=== PATIENT | female | born 1965 | race Two or more races ===

== ENCOUNTER 2024-09-07 08:03 | Outpatient (AMB) | payer OTHER, SELFPAY ==
--- NOTE | 2024-09-07 08:08 | A.OFFPC_ITS ---
Vital Signs 09/07/24 08:09 Height 4 ft 10 in Weight 129 lb BMI 27.0 BP 130/66 Blood Pressure Location Lt brachial Position Sitting Pulse 82 Pulse Source Pulse Oximeter Pulse Oximetry (%) 99 Oxygen Delivery Method Room Air Intake Visit Reasons: New patient Ball Holder Required: Yes Ball Holder Language: Wolof Accompanied by: neighbor Allergies No Known Allergies Allergy (Verified 09/07/24 08:44) Medication List - Last Reconciled 09/07/24 by Chanda Pozo PA-C aspirin 81 mg PO DAILY atorvastatin 40 mg PO DAILY cilostazol 100 mg PO BID clopidogrel 150 mg PO DAILY gabapentin 600 mg PO DAILY insulin glargine 15 units subcut QPM insulin lispro 5 units subcut TID insulin NPH and regular human 100 unit/mL (70-30) (Humulin 70/30 U-100 Insulin) 0.1 units subcut DAILY isosorbide mononitrate ER 30 mg PO QAM levothyroxine 25 mcg PO DAILY losartan 25 mg PO DAILY metformin 850 mg PO DAILY metoprolol succinate ER 25 mg PO DAILY pantoprazole 40 mg PO DAILY Tobacco use date assessed: 09/07/24 Dental Screening Dental Screen Date: 09/07/24 Did you have a dental visit in the last 12 months?: No Did you have a dental problem in the last 6 months where you did not have access to dental care?: No HPI New patient HPI Details 59 year old female coming to the office for the first time. translator interpreter was used for the duration of this visit. Patient presents today with her neighbor. She was previously seen by PCP in [place]. She has been smoking cigarettes for over 40 years and has been smoking a pack per day for at least the last 10 years. She also mentions she has had a history of a heart attack and stroke in his unsure of the exact date but believes it to be in 2022. She has previously had a expediter clerk. She has been out of medications for about 4 months and has been taking valsartan and metformin from a neighbor. [facility] Surgical History (Updated 09/07/24 @ 08:52 by Chanda Pozo PA-C) History of cataract surgery Previous section Fractured coccyx Family History (Updated 09/07/24 @ 08:53 by Chanda Pozo PA-C) Father Lung cancer Maternal Grandmother Stomach cancer Paternal Grandmother Lung cancer Social History Housing: House Patient Tobacco Use Status: Current everyday Tobacco user Tobacco use type: Cigarette Cigarette Packs Per Day: 1 service: No Current occupational status: disabled Cognitive needs: No Hearing needs: No Vision needs: No Questionnaire PHQ-9 Over the last 2 weeks, how often have you been bothered by any of the following problems? 1. Little interest or pleasure in doing things: more than half the days 2. Feeling down, depressed, or hopeless: more than half the days 3. Trouble falling or staying asleep, or sleeping too much: nearly every day 4. Feeling tired or having little energy: nearly every day 5. Poor appetite or overeating: more than half the days 6. Feeling bad about yourself - or that you are a failure or have let yourself or your family down: nearly every day 7. Trouble concentrating on things, such as reading the newspaper or watching television: nearly every day 8. Moving or speaking so slowly that other people could have noticed. Or the opposite - being so fidgety or restless that you have been moving around a lot more than usual: nearly every day 9. Thoughts that you would be better off or of hurting yourself in some way: several days Total score: 22 Depression Screening Interpretation: Positive Depression Screening Done: Yes Source: Developed by Drs. Teo Fagan, Genesis Kinney, Mihir Taylor and colleagues, with an educational lisa from [employer] Thrive Questionnaire Date Thrive assessed: 08/31/24 I am a: Patient What is your living situation today?: I have a steady place to live Within the past 12 months, did the food you bought not last and you didn't have the money to get more?: Often true Within the past 12 months, did you worry whether your food would run out before you got money to buy more?: Often true Do you have trouble paying for medicines?: Yes Do you have trouble getting transportation to medical appointments?: Yes Do you have trouble paying your heating and electricity bill?: Yes Do you have trouble taking care of your child, family member or friend?: Yes Do you have trouble with day-to-day activities such as bathing, preparing meals, shopping, managing finances, etc.?: Yes Are you currently unemployed and looking for a job?: No Are you interested in more education?: I choose not to answer this question Please select the resources that you would like help with: Housing/Residential, Food, Paying for medicine, Transportation, Care for elder or disabled and Daily support Currently or been in a relationship where the following occur: No concerns reported THRIVE Score: 4 AUDIT C Alcohol Use Questionnaire (AUDIT-C) 1. How often do you have a drink containing alcohol?: Never 2. How many drinks containing alcohol do you have on a typical day when you are drinking?: 1 or 2 3. How often do you have six or more drinks on one occasion?: Never Total Score: 0 AVERY-7 AMB Questionnaire AVERY-7 Date AVERY - 7 assessed: 09/07/24 Feeling nervous, anxious, or on edge: 1 = Several days Not being able to stop or control worryin = Several days Worrying too much about different things: 1 = Several days Trouble relaxin = Several days Being so restless that it is hard to sit still: 1 = Several days Becoming easily annoyed or irritable: 0 = Not at all Feeling afraid as if something awful might happen: 0 = Not at all Total AVERY-7 score (0-4 normal; 5-9 mild; 10-14 moderate; 15-21 severe): 5 Source: Developed by Drs. Teo Fagan, Genesis Kinney, Mihir Taylor and colleagues, with an educational lisa from [employer] AVERY-7 Assessment Billing AVERY-7 Assessment Tool: AVERY-7 Assessment 17829 Review of Systems Const Denies body aches and Denies fever(s) Eyes Reports blurry vision ENT Reports no additional complaints Card Denies chest pain, Denies chest pain at rest, Denies chest pain with activity, Denies dyspnea and Denies dyspnea on exertion Resp Denies dyspnea and Denies dyspnea on exertion GI Denies abdominal pain, Reports dyspepsia, Denies nausea and Denies vomiting Reports no additional complaints Musc Reports no additional complaints Skin/Breast Reports system reviewed and no additional complaints, except as documented Neuro Reports no additional complaints Psych Reports no additional complaints Endo Reports no additional complaints Physical exam (Primary Care) Vital Signs: Last Vital Signs Pulse 82 09/07/24 08:09 BP 130/66 09/07/24 08:09 Pulse Ox 99 09/07/24 08:09 Oxygen Delivery Method Room Air 09/07/24 08:09 BMI result Body Mass Index 27.0 Tobacco/Smoking Status: Tobacco use Status Tobacco use date assessed 09/07/24 09/07/24 08:09 Patient Tobacco Use Status Current everyday Tobacco 09/07/24 08:27 Tobacco use type Cigarette 09/07/24 08:27 PHQ-9: PHQ-9 Score PHQ-9: Total score 22 09/07/24 09:01 Depression Screening Interpretation: Positive Thrive Assessment: Date of Thrive Assessment Date Thrive assessed 08/31/24 09/07/24 08:08 Currently or been in a relationship where the following occur: No concerns reported Const General: cooperative, healthy appearing, comfortable and no acute distress Orientation/consciousness: patient oriented x3 HENMT Head: Yes normocephalic Ears: hearing grossly normal bilaterally General nose exam: Normal external nose present Eyes General: appearance normal, both eyes and all related structures Conjunctivae: conjunctivae normal Neck Neck: Yes full ROM and Yes no lymphadenopathy Resp Effort & Inspection: normal respiratory effort Auscultation: clear to auscultation bilaterally, no crackles, no rales, no rhonchi and no wheezes Cardio Rate: regular rate Rhythm: regular rhythm Skin General skin exam: no rashes or lesions noted Neuro General: patient oriented x3 Gait exam (Neuro): Normal gait present Extrem General: Yes normal to inspection, Yes full ROM and No edema Psych Affect: normal affect Attitude: cooperative Insight: Good insight present (Psych) Judgement: Good judgement present (Psych) Results AMB Hemoglobin A1c AMB Hemoglobin A1c 10.2 % Last Edit by ANTHONY Martinez on 09/07/24 09:01 Results Reviewed Results Reviewed: Laboratory Last Values Hgb A1c (Clinic) 10.2 % (4.0-6.0) H 09/07/24 09:00 Coding Level of Care Code New Pt Level 4 (26880) Diagnoses Hypertension I10 Hypothyroid E03.9 Hypercholesterolemia E78.00 CVA (cerebral vascular accident) I63.9 Myocardial infarction I21.9 Diabetes mellitus E11.9 Tobacco abuse Z72.0 GERD (gastroesophageal reflux disease) K21.9 Anxiety F41.9 Depression F32.A Blurred vision H53.8 Additional Codes AVERY-7 Assessment Billing - AVERY-7 Assessment Tool: AVERY-7 Assessment 36138 ([id number]) Assessment & Plan Assessment & Plan (1) Hypertension: Code(s): I10 - Essential (primary) hypertension Category: Medical Plan: We will restart on metoprolol and losartan. Avoid salt intake and encourage healthy diet and regular exercise. Patient would benefit from hypertension education and referral was placed for community navigation. (2) Hypothyroid: Code(s): E03.9 - Hypothyroidism, unspecified Category: Medical Plan: Ordered for updated thyroid labs and refilled prescription for levothyroxine 25. (3) Hypercholesterolemia: Code(s): E78.00 - Pure hypercholesterolemia, unspecified Category: Medical Plan: Avoid foods that are high in cholesterol such as red meat, fried foods, eggs and baked goods. Triglyceride goal of less than 150 and LDL goal of less than 70. We will restart on atorvastatin 40 mg at ordered for updated blood work. (4) CVA (cerebral vascular accident): Comment: 2022 Code(s): I63.9 - Cerebral infarction, unspecified Category: Medical Plan: Patient has a history of a CVA unsure of location of the stroke in the exact date of the stroke. Advised he can control of blood pressure, cholesterol, blood sugars. We will request records from [place]. (5) Myocardial infarction: Comment: 2022 with coronary artery stenosis Code(s): I21.9 - Acute myocardial infarction, unspecified Category: Medical Plan: Patient has a history of myocardial infarction without stent placement but was told that she had severe stenosis of multiple vessels. We will request the notes from [place]. Continue with good control of blood pressure, cholesterol and blood sugar and referral was placed for Cardiology. (6) Diabetes mellitus: Code(s): E11.9 - Type 2 diabetes mellitus without complications Category: Medical Plan: Decrease the amount of carbohydrates such as pasta, bread, rice, and potatoes and limit the amount of sweets. Although fruits are generally healthy they should be eaten in moderation as they are still high in sugar. Hemoglobin A1c goal of less than 7%. Patient was on insulin glargine, insulin lispro and insulin NPH. Discussed that we will discontinue the insulin NPH at this time and continue with insulin glargine and lispro and prescription sent for continuous glucose monitor. Note was sent to [facility] for diabetes education. There is concern for this patient to have episodes of hypoglycemia and discussed the importance of starting with insulin slowly and monitoring blood sugars very closely. (7) Tobacco abuse: Code(s): Z72.0 - Tobacco use Category: Medical Plan: Smoking cigarettes and the use of tobacco can be harmful. We discussed the impo rtance of stopping and options to aid in smoking cessation. Prescription sent for nicotine replacement therapy with Nicorette gum and referral placed for lung cancer screening program. (8) GERD (gastroesophageal reflux disease): Code(s): K21.9 - Gastro-esophageal reflux disease without esophagitis Category: Medical Plan: Avoid trigger foods such as citrus, tomato products, soda, caffeine, spicy foods and other foods that may be irritating to your stomach. Avoid laying flat 3-4 hours after eating and elevate the head of the bed 30 degrees to prevent acid from moving into the esophagus. Continue on pantoprazole (9) Anxiety: Code(s): F41.9 - Anxiety disorder, unspecified Category: Medical Plan: Referral was placed for counseling. (10) Depression: Code(s): F32.A - Depression, unspecified Category: Medical Plan: Referral was placed for counseling (11) Blurred vision: Code(s): H53.8 - Other visual disturbances Category: Medical Plan: Patient complaining of blurred vision that impairs her ability to drive. Referral was placed for optometry. Plan Discussed with patient and her neighbor that these medication should not be started all at 1 time and there should be a day or 2 in between restarting these medications to monitor for side effects. Also discussed the importance of monitoring the blood sugars while at home especially while on insulin and prescription was sent for continuous glucose monitor. Referral was placed to [facility] to educate patient on how to use glucose monitor and for other management of diabetes. This note was constructed using voice recognition software. While every effort has been made to ensure accuracy and log stacker operator, still areas may have been included sometimes these areas may affect the content or meeting of the given symptoms. Total time spent caring for the patient today was forty-five minutes. This includes time spent before the visit reviewing the chart, time spent during the visit, and time spent after the visit and documentation. Orders: Orders AMB Hemoglobin A1c Today E11.9 - Type 2 diabetes mellitus without complications Comprehensive Met. Panel Today Z00.00 - Encounter for general adult medical examination without abnormal findings TSH reflex Free T4 Today Z00.00 - Encounter for general adult medical examination without abnormal findings Microalbumin, Random (w Creat) Today E11.9 - Type 2 diabetes mellitus without complications Free T4 (Free Thyroxine) Today Z00.00 - Encounter for general adult medical examination without abnormal findings MM tomosynthesis screening BI Today Z12.31 - Encounter for screening mammogram for malignant neoplasm of breast Complete Blood Count Auto Diff Today Z00.00 - Encounter for general adult medical examination without abnormal findings Lipid Panel Today Z00.00 - Encounter for general adult medical examination w ithout abnormal findings Vitamin B12 and Folate Today Z00.00 - Encounter for general adult medical examination without abnormal findings Vitamin D 25-OH (D2 and D3) Today Z00.00 - Encounter for general adult medical examination without abnormal findings UA CC w/rflx Micro + Cult Today R35.89 - Other polyuria Referrals Lung Cancer Screening Referral Z72.0 - Tobacco use Gastroenterology Referral Z12.11 - Encounter for screening for malignant neoplasm of colon Optometry Referral E11.9 - Type 2 diabetes mellitus without complications, H53.8 - Other visual disturbances Podiatry Referral E11.9 - Type 2 diabetes mellitus without complications Cardiology Referral I21.9 - Acute myocardial infarction, unspecified, I63.9 - Cerebral infarction, unspecified Counseling Referral F32.A - Depression, unspecified, F41.9 - Anxiety disorder, unspecified Medications: New nicotine (polacrilex) 4 mg buccal Q2H 40 ea 0RF aspirin 81 mg PO DAILY 90 tabs 2RF pantoprazole 40 mg PO DAILY 90 tabs 3RF metoprolol succinate ER 25 mg PO DAILY 90 tabs 2RF losartan 25 mg PO DAILY 90 tabs 2RF levothyroxine 25 mcg PO DAILY 90 caps 2RF clopidogrel 150 mg (2 x 75 mg) PO DAILY 60 tabs 2RF insulin glargine 15 units (0.15 mL) subcut QPM 15 mL 0RF acetaminophen (Tylenol Extra Strength) 500 mg PO Q6H PRN 30 tabs 0RF fever blood-glucose sensor (FreeStyle Javi 3 Sensor device) As directed 1 ea 0RF E11.9 - Type 2 diabetes mellitus without complications clopidogrel 75 mg PO DAILY 90 tabs 2RF atorvastatin 40 mg PO DAILY 90 tabs 1RF metformin 850 mg PO DAILY 90 tabs 2RF
[2024-09-07 08:09] VITALS: BP 130/66; PULSE 82; O2SAT 99; BMI 27.0
== END 2024-09-07 09:17 | disposition home or self-care (01) ==
LOC: HO.HMCH 08:04
DX: I10 Essential (primary) hypertension (principal); I63.9 Cerebral infarction, unspecified; I21.9 Acute myocardial infarction, unspecified; E11.9 Type 2 diabetes mellitus without complications; E03.9 Hypothyroidism, unspecified; E78.00 Pure hypercholesterolemia, unspecified; Z72.0 Tobacco use; K21.9 Gastro-esophageal reflux disease without esophagitis; F41.9 Anxiety disorder, unspecified; F32.A Depression, unspecified; H53.8 Other visual disturbances

== ENCOUNTER → 2024-09-07 08:03 | Outpatient (BNVA) | payer OTHER, SELFPAY | DX: I10 Essential (primary) hypertension (principal); E03.9 Hypothyroidism, unspecified; E78.00 Pure hypercholesterolemia, unspecified; I63.9 Cerebral infarction, unspecified; I21.9 Acute myocardial infarction, unspecified; E11.9 Type 2 diabetes mellitus without complications; K21.9 Gastro-esophageal reflux disease without esophagitis; F41.9 Anxiety disorder, unspecified; F32.A Depression, unspecified; H53.8 Other visual disturbances; Z72.0 Tobacco use | CPT/HCPCS: 83036; 96127; 99202 ==

== ENCOUNTER 2024-11-19 10:32 | Outpatient (AMB) | payer OTHER, SELFPAY ==
--- NOTE | 2024-11-19 08:03 | MHC.OFFVIS ---
Intake Visit Reasons: LDCT Allergies No Known Allergies Allergy (Verified 09/07/24 08:44) HPI HPI LDCT: Details: Initial visit for this 59yo smoker with a 25PYH. Patient started smoking at age 18 for 41 years at 1/2-3/4ppd. . Denies marijuana use. Denies second hand smoke exposure. Denies exposure to chemicals or substances like asbestos. . Reports family history of lung cancer - paternal grandmother. Denies personal history of cancers. Denies chest CT in last year. . Denies recent travel outside the [place]. Denies recent respiratory illness or recent hospitalization for respiratory issues. Reports history testing positive for COVID. Admits receiving COVID Vaccine. . History of CVA and CT in 2022. Denies fever, chills, new/worsening cough, hemoptysis, hoarseness or dysphagia. Denies significant chest pain, significant dyspnea or unintentional weight loss. Patient Lung Cancer Screening Questionnaire reviewed with patient by provider. . Shared Decision Making Completed. Patient meets criteria. Discussed in detail with patient, the risk vs benefit of LDCT screening. Patient consents to proceed with scan. Discussed smoking cessation. [facility] Medical History (Updated 11/19/24 @ 10:48 by Henna Lugo PA-C) History of CVA (cerebrovascular accident) (~2022) History of myocardial infarction (~2022) Hypertension Hypercholesterolemia Diabetes mellitus Hypothyroid GERD (gastroesophageal reflux disease) Nicotine dependence, cigarettes, uncomplicated Surgical History (Updated 10/11/24 @ 15:19 by Henna Lugo PA-C) S/P insertion of iliac artery stent History of orthopedic surgery History of cataract surgery History of Family History (Updated 09/07/24 @ 08:53 by Chanda Pozo PA-C) Father No problems noted. Maternal Grandmother Stomach cancer Paternal Grandmother Lung cancer Social History (Updated 11/19/24 @ 10:49 by Henna Lugo PA-C) Housing: House Patient Tobacco Use Status: Current everyday Tobacco user Tobacco use type: Cigarette Cigarette Packs Per Day: 1 Years Smoked: (onset 18yo, 1/2-3/4ppd x 41yrs, 25PYH) service: No Current occupational status: disabled Cognitive needs: No Hearing needs: No Vision needs: No Assessment & Plan Assessment & Plan (1) Nicotine dependence, cigarettes, uncomplicated: Comment: (current smoker - onset 18yo, 1/2-3/4ppd x 41yrs, 25PYH) Code(s): F17.210 - Nicotine dependence, cigarettes, uncomplicated Category: Medical Plan: - SDM visit completed today in office. - Patient meets criteria for LDCT for lung cancer screening purposes and is asymptomatic. - Smoking cessation counseling offered. Patients can always call [phone]. - Will arrange for a LDCT scan of the chest for screening purposes at [facility]. - Risks, benefits, and alternatives were discussed in detail and the patient agrees to proceed. - Risks discussed include but are not limited to: radiation exposure, anxiety during testing and while awaiting results, false negatives, false positives and possibility of additional intervention such as further imaging or surgical procedures for benign disease. - Benefits are obviously detection of lung cancer at an early stage which can lead to improved outcomes. - Discussed the importance of screening program compliance with adherence to yearly LDCT scan as scheduled - or sooner interval scans for personalized screening regimen. - Discussed follow up plan. Our office will send a letter discussing results and if needed set up phone call and office visit based on CT findings. - Patient educated on results categorization and the management decisions for suspicious findings potentially found on the screening LDCT scan. Any patient with a Lung RADS score of 3 or 4 will be reviewed by a multidisciplinary team at [facility] to form a plan of action in regards to scan findings. - If further work up is warranted for a suspicious lung finding this will be followed by the Lung Cancer Screening program in conjunction with the Thoracic Surgery Department at [facility]. - A copy of the office note and LDCT will be sent to the patient's PCP - as well as documentation on any associated further plans of care. - Incidental findings on LDCT are the PCP's responsibility. These findings are indicated with an S finding on the LDCT Assessment. A note discussing the findings will be sent to the PCP who is then responsible for further management. - All questions answered.? Coding Level of Care Code Lung Cancer Screening [id number] Diagnoses Nicotine dependence, cigarettes, uncomplicated F17.210
== END 2024-11-19 11:07 | disposition home or self-care (01) ==
PROVIDERS: Visit Provider Physician Assistant Medical
DX: F17.210 Nicotine dependence, cigarettes, uncomplicated (principal)
CPT/HCPCS: G0296

== ENCOUNTER 2024-11-19 10:58 | Outpatient (REF) | payer OTHER, SELFPAY ==
--- NOTE | ~2024-11-19 | CT_ITS ---
CLINICAL HISTORY: F17.210 - Nicotine dependence, cigarettes, uncomplicated CT lung cancer screening (LDCT) Comparison: None Technique: Axial CT images of the chest using low-dose technique. Referring provider counseled the patient on shared decision-making for LDCT screening. Additional counseling was provided on smoking cessation. Effective radiation dose total: DLP 30.6 mGycm, CTDIvol 1.1 mGy. Findings: 11 mm subpleural nodule in the apical segment of the left upper lobe either continuous with or in the vicinity of a peripheral pulmonary vessel branch. Additional small (up to 3 mm) predominantly right upper lung nodules and a calcified left upper lobe granuloma. Coronary artery calcifications: [id number] Cholecystectomy. Rectangular density in the subcutaneous fat of the left ventral chest likely due to a cardiac loop recorder. Correlate clinically. Small sclerotic focus in the left proximal humerus may be due to a bone island. Impression: LungRADS 4A - Suspicious: Follow-up low dose Chest CT recommended in 3 months or consider PET/CT. ##L4A# Of note, since the 11 mm left upper lobe nodule may be due to a true nodule versus an aneurysm, a chest CTA (pulmonary artery phase) is recommended for further evaluation before the recommended low-dose chest CT follow-up in 3 months or PET-CT Category 1: Normal; continue annual screening Category 2: Benign appearance or behavior, continue annual screening Category 3: Probably benign, [address] recommended Category 4A: Suspicious, [address] recommended; may consider PET/CT Category 4B: Suspicious, Additional diagnostics and/or tissue sampling recommended Category 4X: Suspicious, Additional diagnostics and/or tissue sampling recommended Category 0: Recalls (incomplete screen due to Incomplete coverage, Noise, Respiratory motion, Expiration, Obscured by acute abnormality) IMPRESSION: 11 mm subpleural nodule in the apical segment of the left upper lobe either continuous with or in the vicinity of a peripheral pulmonary vessel branch. Additional small (up to 3 mm) right upper lung nodules and a calcified left upper lobe granuloma. This document has been electronically signed by: Donna Alfonso MD on 11/23/2024 09:33:55
== END 2024-11-19 10:59 | disposition home or self-care (01) ==
LOC: HO.CT 10:58
PROVIDERS: Visit Provider Physician Assistant Medical
DX: Z12.2 Encounter for screening for malignant neoplasm of respiratory organs (principal); F17.210 Nicotine dependence, cigarettes, uncomplicated
CPT/HCPCS: 71271; G0296

== ENCOUNTER → 2024-11-19 11:00 | Outpatient (BNV) | payer OTHER, SELFPAY | PROVIDERS: Visit Provider Radiology Diagnostic Radiology | DX: F17.210 Nicotine dependence, cigarettes, uncomplicated (principal) | CPT/HCPCS: 71271 ==

== ENCOUNTER → 2024-12-08 13:01 | Outpatient (BNVA) | payer OTHER, SELFPAY | PROVIDERS: Visit Provider Internal Medicine | DX: I25.10 Atherosclerotic heart disease of native coronary artery without angina pectoris (principal); I10 Essential (primary) hypertension; E11.9 Type 2 diabetes mellitus without complications; E78.00 Pure hypercholesterolemia, unspecified; Z95.818 Presence of other cardiac implants and grafts | CPT/HCPCS: 93005; 99202 ==

== ENCOUNTER 2024-12-14 14:17 | Outpatient (AMB) | payer OTHER, SELFPAY ==
--- NOTE | 2024-12-14 14:32 | MHC.PC.OV ---
Vital Signs 12/14/24 14:40 Height 4 ft 10 in Weight 128 lb 6 oz BMI 26.8 BP 120/70 Blood Pressure Location Lt brachial Position Sitting Pulse 74 Pulse Source Pulse Oximeter Temp 97.1 F Temp Source Skin Pulse Oximetry (%) 97 Oxygen Delivery Method Room Air Intake Visit Reasons: f/d DM Intake Note: Patient is here to follow up on DM. Vocational Counselor Required: Yes Vocational Counselor Language: Chief Librarian Extension Department Name: Bell ([id number]) Information Interpreted: non-clinical & clinical Hosting Engineer: Present Accompanied by: Daughter Allergies fruit Allergy (Severe, Uncoded 12/14/24 14:40) itchy throat Medication List - Last Reconciled 12/14/24 by Chanda Pozo PA-C acetaminophen (Tylenol Extra Strength) 500 mg PO Q6H PRN aspirin 81 mg PO DAILY atorvastatin 40 mg PO DAILY clopidogrel 75 mg PO DAILY gabapentin 600 mg PO DAILY insulin glargine 15 units (0.15 mL) subcut QPM levothyroxine (Tirosint) 25 mcg PO DAILY losartan 25 mg PO DAILY metformin 850 mg PO DAILY metoprolol succinate ER 25 mg PO DAILY pantoprazole 40 mg PO DAILY [Pen needles 5mm As directed] [Wheelchair As directed] Tobacco use date assessed: 12/14/24 Dental Screening Dental Screen Date: 12/14/24 Did you have a dental visit in the last 12 months?: No Did you have a dental problem in the last 6 months where you did not have access to dental care?: No Was dental information given to patient?: No HPI f/d DM HPI Details 59-year-old female with past medical history tobacco abuse, anxiety, depression, GERD, hypothyroid, diabetes mellitus, hypertension, hypercholesterolemia, CVA and NV last seen 09/2024 coming in for follow up.? In review of the notes, patient had lung cancer screening done 11/19/2024 which revealed lung nodules recommended follow up with pulmonology. Patient saw Cardiology 12/08/2024 continue on dual antiplatelet medications advised good control of cholesterol and diabetes, ordered for cardiac echo and follow up in 2-3 months. Bell ([id number]) vp customer development was used for the duration of this visit. Presenting with her daughter and with foot pain and evaluation of diabetes management. She reports focal foot pain, primarily in her big toe, characterized by an aching quality that peaks in the morning and resolves with walking. Previous management of diabetic neuropathy included gabapentin, which the patient has not taken for the past week. Current diabetes regimen includes insulin and metformin, with recent improvement in glycemic control as noted by an HbA1c reduction from 10.2 to 8.4. She does not however monitor her blood sugars at home. Cardiovascular risk management is ongoing, with an upcoming echocardiogram scheduled as part of her cardiovascular assessment. [facility] Medical History History of CVA (cerebrovascular accident) (~2022) History of myocardial infarction (~2022) Hypertension Hypercholesterolemia Diabetes mellitus Hypothyroid GERD (gastroesophageal reflux disease) Nicotine dependence, cigarettes, uncomplicated Surgical History S/P insertion of iliac artery stent History of orthopedic surgery History of cataract surgery History of Family History Father No problems noted. Maternal Grandmother Stomach cancer Paternal Grandmother Lung cancer Social History (Updated 12/14/24 @ 14:53 by Kim Keller [facility]) Housing: House Alcohol intake: never Patient Tobacco Use Status: Current everyday Tobacco user Tobacco use type: Cigarette Cigarette Packs Per Day: 0.5 Cigarettes Per Day: 4 Years Smoked: (onset 18yo, 1/2-3/4ppd x 41yrs, 25PYH) e-Cigarette/Vaping Use: Never Used Second Hand Smoke Exposure: Yes service: No Current occupational status: disabled Cognitive needs: No Hearing needs: No Vision needs: No Questionnaire PHQ-9 Over the last 2 weeks, how often have you been bothered by any of the following problems? 1. Little interest or pleasure in doing things: not at all 2. Feeling down, depressed, or hopeless: not at all 3. Trouble falling or staying asleep, or sleeping too much: not at all 4. Feeling tired or having little energy: not at all 5. Poor appetite or overeating: not at all 6. Feeling bad about yourself - or that you are a failure or have let yourself or your family down: not at all 7. Trouble concentrating on things, such as reading the newspaper or watching television: not at all 8. Moving or speaking so slowly that other people could have noticed. Or the opposite - being so fidgety or restless that you have been moving around a lot more than usual: not at all 9. Thoughts that you would be better off or of hurting yourself in some way: not at all Total score: 0 Depression Screening Interpretation: Negative Depression Screening Done: Yes Source: Developed by Drs. Teo Fagan, Mihir Peck and colleagues, with an educational lisa from [employer]. Thrive Questionnaire Date Thrive assessed: 12/14/24 AUDIT C Alcohol Use Questionnaire (AUDIT-C) 1. How often do you have a drink containing alcohol?: Never Total Score: 0 AVERY-7 AMB Questionnaire AVERY-7 Date AVERY - 7 assessed: 12/14/24 Feeling nervous, anxious, or on edge: 3 = Nearly every day Not being able to stop or control worryin = More than half the days Worrying too much about different things: 2 = More than half the days Trouble relaxin = Not at all Being so restless that it is hard to sit still: 2 = More than half the days Becoming easily annoyed or irritable: 1 = Several days Feeling afraid as if something awful might happen: 2 = More than half the days Total AVERY-7 score (0-4 normal; 5-9 mild; 10-14 moderate; 15-21 severe): 12 Source: Developed by Drs. Teo Fagan, Mihir Peck and colleagues, with an educational lisa from [employer]. Review of Systems Const Denies body aches, Denies chills, Denies fever(s), Denies headache(s) and Denies poor appetite Eyes Reports no additional complaints ENT Denies dysphagia, Denies dizziness, Denies headache(s) and Denies odynophagia Card Denies chest pain, Denies syncope, Denies edema, Denies irregular heart rhythm, Denies lightheadedness and Denies dyspnea Resp Denies cough and Denies dyspnea GI Denies abdominal pain, Denies constipation, Denies dysphagia, Denies diarrhea, Denies nausea, Denies odynophagia and Denies vomiting Reports no additional complaints Musc Reports no additional complaints and Denies abnormal gait Skin/Breast Reports system reviewed and no additional complaints, except as documented Neuro Denies abnormal gait, Denies dizziness, Denies syncope and Denies headache(s) Psych Reports no additional complaints Physical exam (Primary Care) Vital Signs: Last Vital Signs Temp 97.1 F 12/14/24 14:40 Pulse 74 12/14/24 14:40 BP 120/70 12/14/24 14:40 Pulse Ox 97 12/14/24 14:40 Oxygen Delivery Method Room Air 12/14/24 14:40 BMI result Body Mass Index 26.8 Tobacco/Smoking Status: Tobacco use Status Tobacco use date assessed 12/14/24 12/14/24 15:00 Patient Tobacco Use Status Current everyday Tobacco 12/14/24 14:53 Tobacco use type Cigarette 12/14/24 14:53 e-Cigarette/Vaping Use Never Used 12/14/24 15:00 Are you ready to quit: No Tobacco cessation counseling provided: Yes Items discussed: Nicotine replacement Relapse Prevention: weight gain after smoking is common and discussed dietary, exercise and/or lifestyle changes CPT code: Less than 3 minutes PHQ-9: PHQ-9 Score PHQ-9: Total score 0 12/14/24 15:40 Depression Screening Interpretation: Negative Thrive Assessment: Date of Thrive Assessment Date Thrive assessed 12/14/24 12/14/24 14:35 Const General: cooperative, healthy appearing, comfortable and no acute distress Orientation/consciousness: patient oriented x3 HENMT Head: Yes normocephalic Ears: hearing grossly normal bilaterally General nose exam: Normal external nose present Eyes General: appearance normal, both eyes and all related structures Conjunctivae: conjunctivae normal Neck Neck: Yes full ROM and Yes no lymphadenopathy Resp Effort & Inspection: normal respiratory effort Auscultation: clear to auscultation bilaterally, no crackles, no rales, no rhonchi and no wheezes Cardio Rate: regular rate Rhythm: regular rhythm Skin General skin exam: no rashes or lesions noted Neuro General: patient oriented x3 Gait exam (Neuro): Normal gait present Extrem Other: Bilateral feet examined tenderness to palpation over plantar aspect of bilateral feet. Good sensation and pulses in bilateral lower extremities. She does have 1 area of cracked skin on the base of the right heel without any areas of open skin. No ulcers noted General: Yes normal to inspection, Yes full ROM and No edema Psych Affect: normal affect Attitude: cooperative Insight: Good insight present (Psych) Judgement: Good judgement present (Psych) Results AMB Hemoglobin A1c AMB Hemoglobin A1c 8.4 % Last Edit by ANTHONY Rivas on 12/14/24 15:03 Results Reviewed Results Reviewed: Laboratory Last Values Hgb A1c (Clinic) 8.4 % (4.0-6.0) H 12/14/24 14:32 Coding Level of Care Code Est Pt Level 4 (68096) Diagnoses Coronary artery disease I25.10 Left upper lobe pulmonary nodule R91.1 History of CVA (cerebrovascular accident) Z86.73 History of myocardial infarction I25.2 Hypertension I10 Hypercholesterolemia E78.00 Diabetes mellitus E11.9 GERD (gastroesophageal reflux disease) K21.9 Nicotine dependence, cigarettes, uncomplicated F17.210 Foot pain M79.673 Assessment & Plan Assessment & Plan (1) Coronary artery disease: Code(s): I25.10 - Atherosclerotic heart disease of agdaagux coronary artery without angina pectoris Category: Medical Plan: Recently seen by Cardiology ordered for echocardiogram. Advised good control of blood pressure, cholesterol and diabetes mellitus. (2) Left upper lobe pulmonary nodule: Comment: 11 mm subpleural nodule in [facility] on 11/2024 LDCT - referral to Pulmonology for further care. Code(s): R91.1 - Solitary pulmonary nodule Category: Medical Plan: Recently completed lung cancer screening program which revealed a 11 mm subpleural nodule in the left upper lobe. Referral was placed to pulmonology and patient has a appointment in the coming months (3) History of CVA (cerebrovascular accident): Onset Date: ~2022 Code(s): Z86.73 - Personal history of transient ischemic attack (TIA), and cerebral infarction without residual deficits Category: Medical Plan: Patient has a history of CVA making her LDL goal less than 70. Advised good control of blood pressure, cholesterol and diabetes. Currently on dual antiplatelet therapy with clopidogrel and aspirin (4) History of myocardial infarction: Onset Date: ~2022 Comment: (NV in 2022 with coronary artery stenosis - no stents per patient) Code(s): I25.2 - Old myocardial infarction Category: Medical Plan: Recently seen by cardiology advised to undergo echocardiogram for further evaluation. Unclear if stents were placed still awaiting on clarification. (5) Hypertension: Code(s): I10 - Essential (primary) hypertension Category: Medical Plan: Continue on current blood pressure medication. Avoid salt intake and encourage healthy diet and regular exercise. (6) Hypercholesterolemia: Code(s): E78.00 - Pure hypercholesterolemia, unspecified Category: Medical Plan: Avoid foods that are high in cholesterol such as red meat, fried foods, eggs and baked goods. Triglyceride goal of less than 150 and LDL goal of less than 70. Continue on atorvastatin 40. Reminded patient about blood work (7) Diabetes mellitus: Comment: (IDDM2) Code(s): E11.9 - Type 2 diabetes mellitus without complications Category: Medical Plan: Decrease the amount of carbohydrates such as pasta, bread, rice, and potatoes and limit the amount of sweets. Although fruits are generally healthy they should be eaten in moderation as they are still high in sugar. Hemoglobin A1c goal of less than 7%. A1c in the clinic today 8.4 which is improved from 10.2%. Advised patient to monitor blood sugars at home as she is on insulin and blood sugar should be monitored at least twice daily by ideally 3 times per day. Plan to add Jardiance to medication regimen at this time and continue on metformin 850 and insulin 15 units nightly. Follow up again in 3 months (8) GERD (gastroesophageal reflux disease): Code(s): K21.9 - Gastro-esophageal reflux disease without esophagitis Category: Medical Plan: Avoid trigger foods such as citrus, tomato products, soda, caffeine, spicy foods and other foods that may be irritating to your stomach. Avoid laying flat 3-4 hours after eating and elevate the head of the bed 30 degrees to prevent acid from moving into the esophagus. Continue on pantoprazole 40 (9) Nicotine dependence, cigarettes, uncomplicated: Comment: (current smoker - onset 18yo, 1/2-3/4ppd x 41yrs, 25PYH) Code(s): F17.210 - Nicotine dependence, cigarettes, uncomplicated Category: Medical Plan: Smoking cigarettes and the use of tobacco can be harmful. We discussed the importance of stopping and options to aid in smoking cessation. Annual lung cancer screening program completed (10) Foot pain: Code(s): M79.673 - Pain in unspecified foot Category: Medical Plan: Patient complaining of bilateral foot pain that is worse in the morning and improves with walking. Tenderness to palpation on exam of bilateral plantar surfaces. She does have a skin crack on the base of her right heel without any areas of open skin. No areas of ulceration on bilateral feet including between the toes. Advised patient to keep feet well hydrated with Aquaphor or Vaseline. Patient has been without gabapentin which is likely the reason for her bilateral foot pain. Refilled gabapentin prescription at this time and recommending following up with Podiatry. Plan I discussed with the patient the current management of her diabetic neuropathy, emphasizing the importance of restarting gabapentin to alleviate her foot pain. We reviewed the necessity of maintaining well-hydrated skin on her feet to prevent ulceration. The addition of Jardiance was proposed to aid in further glycemic control, and I ensured the patient understood the potential side effects, such as urinary tract infections. The importance of her upcoming echocardiogram as part of cardiovascular health monitoring was highlighted, as was the need for regular blood glucose monitoring. I instructed her on dietary adjustments aimed at reducing sugar intake. We have planned to follow up in three months to reassess her HbA1c and overall diabetes and foot health management. Patient was informed and verbally consented to the use of an ambient scribe for clinic note documentation during this visit. This note was constructed using voice recognition software. While every effort has been made to ensure accuracy and office machine punch operator, still areas may have been included sometimes these areas may affect the content or meeting of the given symptoms. Total time spent caring for the patient today was thirty minutes. This includes time spent before the visit reviewing the chart, time spent during the visit, and time spent after the visit and documentation. Orders: Orders AMB Hemoglobin A1c Today E11.9 - Type 2 diabetes mellitus without complications Medications: New blood sugar diagnostic (FreeStyle Lite Strips) As directed; TID 50 ea 2RF empagliflozin (Jardiance) 10 mg PO DAILY 90 tabs 1RF gabapentin 600 mg PO DAILY 30 tabs 0RF blood-glucose meter (FreeStyle Lite Meter kit) As directed 1 ea 0RF lancets (FreeStyle Lancets) As directed; TID 100 ea 0RF Refilled insulin glargine 15 units (0.15 mL) subcut QPM 15 mL 0RF
[2024-12-14 14:40] VITALS: BP 120/70; PULSE 74; TEMP 36.2; O2SAT 97; BMI 26.8
--- OUTSIDE RECORDS SUMMARY | 2024-12-14 15:14 | XMS_ITS | Clinical Summary ---
Author Organization 175 [facility] Address [address] [place] [address] Phone Care Team Providers Care High Reach Operator Name Role Phone Physician, Pcp Unknown Primary Care Provider Trish vailable Social History Tobacco Use Types Packs/Day Years Used Date Smoking Tobacco: Never Assessed Comments Unknown Sex and Gender Information Value Date Recorded Sex Assigned at Not on file Legal Sex Female 10:10 AM EST Gender Identity Not on file Sexual Orientation Not on file Plan of Treatment Upcoming Encounters Date Type Department Care Team ([facility] st Contact Info) Description 12/21/2024 9:45 AM EST Office Visit Orthopedic Surgery - [place] [id number] [phone] Gregg Malone, DPM [address] [id number] Health Maintenance Due Date Last Done Comments Breast Cancer Screening 1965 DTaP,Tdap,and Td Vaccines (1 - Tdap) 1983 Cervical Cancer Screening: P ap Smear 1985 Zoster Vaccines (1 of 2) 2014 COVID-19 Vaccine ( - 2023-2 5 season) 2024 Influenza Vaccine (#1) 2024 Colorectal Cancer Screening: Colonoscopy 09/10/2024 Depression Screening 09/10/2024 HIV Screening 09/10/2024 Hepatitis C Screening 09/10/2024 Social Influencers of Health Screening 09/10/2024 RSV Immunization Patients 60 + Years Old (1 - 1-dose 75+ series) 2039 HIB Vaccines Aged Out No longer eligi ble based on patient's age to complete this topic HPV Vaccines Aged Out No longer eligi ble based on patient's age to complete this topic Hepatitis A Vaccines Aged Out No long er eligible based on patient's age to complete this topic Hepatitis B Vaccines Aged Out No long er eligible based on patient's age to complete this topic IPV Vaccines Aged Out No longer eligi ble based on patient's age to complete this topic MMR Vaccines Aged Out No longer eligi ble based on patient's age to complete this topic Meningococcal ACWY Vaccine Aged Out N o longer eligible based on patient's age to complete this topic Pneumococcal Vaccine: Pediat rics (0 to 5 Years) and At-Risk Patients (6 to 64 Years) Aged Out No longer eligible b ased on patient's age to complete this topic RSV Immunization Patients Un kobe 20 months Aged Out No longer eligible b ased on patient's age to complete this topic Varicella Vaccines Aged Out No longer eligible based on patient's age to complete this topic Insurance PLAN Care Teams High Reach Operator Relationship Specialty Start Date End Date Physician, Pcp Unknown PCP - General 12/08/24
== END 2024-12-14 15:29 | disposition home or self-care (01) ==
DX: E11.9 Type 2 diabetes mellitus without complications (principal); I25.10 Atherosclerotic heart disease of native coronary artery without angina pectoris; R91.1 Solitary pulmonary nodule; Z86.73 Personal history of transient ischemic attack (TIA), and cerebral infarction without residual deficits; I25.2 Old myocardial infarction; I10 Essential (primary) hypertension; E78.00 Pure hypercholesterolemia, unspecified; K21.9 Gastro-esophageal reflux disease without esophagitis; F17.210 Nicotine dependence, cigarettes, uncomplicated; M79.671 Pain in right foot; M79.672 Pain in left foot

== ENCOUNTER → 2024-12-14 14:17 | Outpatient (BNVA) | payer OTHER, SELFPAY | DX: I25.10 Atherosclerotic heart disease of native coronary artery without angina pectoris (principal); R91.1 Solitary pulmonary nodule; I25.2 Old myocardial infarction; I10 Essential (primary) hypertension; E78.00 Pure hypercholesterolemia, unspecified; E11.9 Type 2 diabetes mellitus without complications; K21.9 Gastro-esophageal reflux disease without esophagitis; F17.210 Nicotine dependence, cigarettes, uncomplicated; Z71.6 Tobacco abuse counseling; Z86.73 Personal history of transient ischemic attack (TIA), and cerebral infarction without residual deficits | CPT/HCPCS: 83036; 99212 ==

== ENCOUNTER 2024-12-17 | Outpatient (REF) | payer OTHER, SELFPAY | END 2024-12-17 00:01 | disposition home or self-care (01) | LOC: CF | PROVIDERS: Visit Provider Internal Medicine Pulmonary Disease | DX: R91.1 Solitary pulmonary nodule (principal); J43.9 Emphysema, unspecified | CPT/HCPCS: 99202 ==

== ENCOUNTER 2024-12-17 15:35 | Outpatient (AMB) | payer OTHER, SELFPAY ==
[2024-12-17 15:38] VITALS: BP 108/58; PULSE 78; O2SAT 99; BMI 27.6
--- NOTE | 2024-12-17 15:38 | A.OFFVIS_ITS ---
Vital Signs 12/17/24 15:38 Height 4 ft 10 in Weight 132 lb BMI 27.6 BP 108/58 L Blood Pressure Location Lt brachial Position Sitting Pulse 78 Pulse Source Doppler Pulse Oximetry (%) 99 Oxygen Delivery Method Room Air Intake Visit Reasons: solitary pulmonary nodule Dry Cell And Battery Assembler Required: Yes Dry Cell And Battery Assembler Name: Caro Pena C.L.M Allergies fruit Allergy (Severe, Uncoded 12/14/24 14:40) itchy throat HPI HPI solitary pulmonary nodule: Details: 59-year-old lady, active 30+ pack-year smoker referred from lung cancer screening program for new finding of 11 mm left upper lobe nodule. Patient does have multiple grandparents with history of lung cancer. She denies any significant dyspnea on exertion. She is currently not using inhaled bronchodilator therapy. [facility] Medical History History of CVA (cerebrovascular accident) (~2022) History of myocardial infarction (~2022) Hypertension Hypercholesterolemia Diabetes mellitus Hypothyroid GERD (gastroesophageal reflux disease) Nicotine dependence, cigarettes, uncomplicated Surgical History S/P insertion of iliac artery stent History of orthopedic surgery History of cataract surgery History of Family History Father No problems noted. Maternal Grandmother Stomach cancer Paternal Grandmother Lung cancer Social History (Updated 12/14/24 @ 14:53 by Kim Keller Luis Angel) Housing: House Alcohol intake: never Patient Tobacco Use Status: Current everyday Tobacco user Tobacco use type: Cigarette Cigarette Packs Per Day: 0.5 Cigarettes Per Day: 4 Years Smoked: (onset 18yo, 1/2-3/4ppd x 41yrs, 25PYH) e-Cigarette/Vaping Use: Never Used Second Hand Smoke Exposure: Yes service: No Current occupational status: disabled Cognitive needs: No Hearing needs: No Vision needs: No Review of Systems Const Denies daytime sleepiness, Denies excessive sweating, Denies fatigue, Denies fever(s), Denies lethargy, Denies malaise, Denies night sweats, Denies snoring and Denies weight loss Eyes Denies blurry vision and Denies itchy eyes ENT Denies nasal congestion, Denies post nasal drip, Denies sinus pain, Denies sinus pressure and Denies other ( Thrush) Card Denies chest pain, Denies pedal edema, Denies dyspnea, Denies orthopnea and Denies paroxysmal nocturnal dyspnea Resp Denies cough, Denies hemoptysis, Denies excessive phlegm production, Denies dyspnea, Denies snoring and Denies wheezing GI Denies abdominal pain and Denies heartburn Musc Denies myalgias, Denies arthralgias and Denies joint swelling Skin/Breast Denies rash Neuro Denies memory loss and Denies seizure-like activity Psych Denies abnormal sleep pattern, Denies anxiety and Denies memory loss Endo Denies excessive sweating, Denies fatigue and Denies heat intolerance Nathan/Lymph Denies easy bruising Aller/Immun Denies itchy eyes, Denies seasonal rhinorrhea and Denies wheezing Physical Exam Vital Signs: Last Vital Signs Pulse 78 12/17/24 15:38 BP 108/58 L 12/17/24 15:38 Pulse Ox 99 12/17/24 15:38 Oxygen Delivery Method Room Air 12/17/24 15:38 BMI result Body Mass Index 27.6 Const General: no acute distress and alert Nutritional Appearance: not obese Orientation/consciousness: Other orientation findings ( oriented) HEENT Head: Yes atraumatic Eyes General: appearance normal, both eyes and all related structures Sclerae: sclerae normal EOM: EOMs intact bilaterally Neck Neck: Yes supple Lymphatic: no lymphadenopathy noted Resp Effort & Inspection: normal respiratory effort and no use of accessory muscles Auscultation: clear to auscultation bilaterally Cardio Rate: regular rate Rhythm: regular rhythm Heart sounds: no gallops, no murmurs and no rubs Skin General skin exam: other ( warm) Extrem General: No clubbing, No cyanosis and No edema Assessment & Plan Assessment & Plan (1) Left upper lobe pulmonary nodule: Comment: 11 mm subpleural nodule in [facility] on 11/2024 LDCT - referral to Pulmonology for further care. Code(s): R91.1 - Solitary pulmonary nodule Category: Medical Plan: Will obtain IR guided trans thoracic biopsy. (2) Pulmonary emphysema: Code(s): J43.9 - Emphysema, unspecified Category: Medical Plan: Will obtain full PFT. Orders: Orders CT biopsy lung LT Today R91.1 - Solitary pulmonary nodule PFT pulmonary function test Today J43.9 - Emphysema, unspecified Coding Level of Care Code New Pt Level 4 (76074) Diagnoses Left upper lobe pulmonary nodule R91.1 Pulmonary emphysema J43.9
== END 2024-12-17 15:54 | disposition home or self-care (01) ==
PROVIDERS: Visit Provider Internal Medicine Pulmonary Disease
DX: R91.1 Solitary pulmonary nodule (principal); J43.9 Emphysema, unspecified
CPT/HCPCS: 99204

== ENCOUNTER → 2024-12-27 14:52 | Outpatient (REF) | payer OTHER, SELFPAY ==
--- NOTE | 2024-12-27 14:59 | CA_ITS ---
Transthoracic Echocardiogram Patient (Last, First, Middle): Yuridia Nowak, Gender: Female Date of : 1965 Age: 59 Procedure Date: 12/27/2024 Procedure Type: Transthoracic Echocardiogram Location: OP Height: 149.86 cm Weight: 59.88 kg BSA: 1.55 m2 Heart Rate: bpm BP: 108 / 58 mmHg Harness Cutter: Referring MD: Abhilash Churchill MD Symptoms: I25.10 - Atherosclerotic heart disease of [place] coronary artery without... Study Quality: Adequate ECG Rhythm: Sinus Conclusions: - The left ventricular systolic function is mildly decreased. The calculated ejection fraction is 45% by biplane method. - No obvious valvular pathology seen on this study. Findings Left Ventricle Normal left ventricular cavity size. There is mildly increased left ventricular wall thickness. The left ventricular systolic function is mildly decreased. The calculated ejection fraction is 45% by biplane method. There is mild global hypokinesis. Diastolic function is normal for age. Right Ventricle Normal right ventricular cavity size. There is mildly decreased right ventricular systolic function. Atria Both atria are normal in size. Aortic Valve There is a normal trileaflet aortic valve. There is no aortic valve stenosis. There is no aortic valve regurgitation. Mitral Valve The mitral valve appears normal. There is no mitral valve regurgitation. There is no mitral valve stenosis. Pulmonic Valve The pulmonic valve is likely normal. Tricuspid Valve There is trace tricuspid valve regurgitation. There is no evidence of pulmonary hypertension. Great Vessels The asc aorta is normal in size. Venous The inferior vena cava is normal in size and collapses greater than 50% with inspiration. Pericardium/Pleural There is no evidence of pericardial effusion. Prior Study Comparison No prior study available for comparison. Recommendations, Care & Conclusions No obvious valvular pathology seen on this study. Measurements 2D Linear Measurements IVSd: 1.27 0.6-0.9/0.6-1.0 cm LVIDd: 3.69 3.9-5.3/4.2-5.9 cm LVIDd Index: 2.38 2.4-3.2/2.2-3.1 cm/m2 LVIDs: 2.93 2.0-3.6 cm LVPWd: 1.24 0.7-1.1 cm Ao Root: 2.60 2.1-3.5 cm LA Diam: 2.90 2.7-3.8/3.0-4.0 cm LAIDs Index: 1.87 1.5-2.3 cm/m2 LV Mass: 195.61 67-162/88-224 g LV Mass Index: 126.20 43-95/49-115 g/m2 LVOT Diam: 2.10 3.0+(-)1.3 cm 2D Systolic Function EF 4C: 44.80 >55% EF 2C: 44.90 >55% EF BiP: 44.90 >55% Mitral Valve MV Pk E: 0.83 MV PK A: 0.75 MV Decel Time: 166.00 E/A: 1.10 E'Lateral: 7.83 E'Medial: 6.20 E/E' Med: 13.40 E/E' Lat: 10.60 PHT: 49.00 MVA PHT: 4.49 Decel [place]: 5.00 Aortic Valve AoV Pk Stuart: 1.22 AoV Pk Grad: 6.00 LVOT LVOT Pk Stuart: 0.64 LVOT Mn Stuart: 0.43 LVOT VTI: 0.19 LVOT Pk Grad: 2.00 LVOT Mn Grad: 1.00 LVOT Diam: 2.10 LVOT Area: 3.46 Diastolic Function MV Pk E: 0.83 MV Pk A: 0.75 E/A: 1.10 E'Medial: 6.20 E/E' Med: 13.40 E' Laterial: 7.83 E/E' Lat: 10.60 Right Ventricle TAPSE (mm): 23.00 TVS' Stuart: 9.00 Tricuspid Valve TR Pk Stuart: 1.56 TR Pk Grad: 10.00 RA Press: 3.00 RVSP: 13.00 Great Vessels Aorta Ao Root-2D: 2.60 2.0-3.7 cm Ao Asc: 2.60 2.1-3.4 cm Pulmonary Valve PV Pk Stuart: 0.84 Peak PV Grad: 3.00 Updated in Other Vendor System with Status of Final Abhilash Churchill MD electronically signed on 12/28/2024 10:07:43 AM with status of Final
--- OUTSIDE RECORDS SUMMARY | 2024-12-27 17:15 | XMS_ITS | Clinical Summary ---
Author Organization 175 [facility] Address 175 [place] [address] Phone Care Team Providers Care Air Cargo Agent Name Role Phone Physician, Pcp Unknown Primary [...] Upcoming Encounters Date Type Department Care Team ([facility] st Contact Info) Description 02/28/2025 10:45 AM EDT Office Visit Orthopedic Surgery - [place] [phone] [phone] Gregg Malone, DPM [address] [address] Health Maintenance Due Date Last Done Comments Breast Cancer Screening 1965 DTaP,Tdap,and Td Vaccines (1 - Tdap) 1983 Cervical Cancer Screening: P ap Smear 1985 Pneumococcal Vaccine: 50+ Ye ars (1 of 1 - PCV) 2014 Zoster Vaccines (1 of 2) 2014 COVID-19 [...] patient's age to complete this topic Meningococcal B Vacine Aged Out No lo nger eligible based on patient's age to complete [...] patient's age to complete this topic Insurance [place] [address] PLAN Care Teams Air Cargo Agent Relationship Specialty Start Date End Date Physician, Pcp Unknown PCP - General 12/08/24
== END ==
LOC: HO.CARD 14:52
PROVIDERS: Visit Provider Internal Medicine
DX: I25.10 Atherosclerotic heart disease of native coronary artery without angina pectoris (principal)
CPT/HCPCS: 93306

== ENCOUNTER → 2024-12-27 14:59 | Outpatient (BNV) | payer OTHER, SELFPAY | PROVIDERS: Visit Provider Internal Medicine | DX: I25.10 Atherosclerotic heart disease of native coronary artery without angina pectoris (principal) | CPT/HCPCS: 93306 ==

== ENCOUNTER 2025-01-05 07:59 | Outpatient (REF) | payer OTHER, SELFPAY ==
--- OUTSIDE RECORDS SUMMARY | 2025-01-05 08:07 | XMS_ITS | Clinical Summary ---
Author Organization 175 [facility] Address 175 [place] [address] Phone Care Team Providers Care Real Estate Administrator Name Role Phone Physician, Pcp Unknown Primary [...] Upcoming Encounters Date Type Department Care Team ([facility] st Contact Info) Description 02/28/2025 10:45 AM EDT Office Visit Orthopedic Surgery - [place] [phone] [phone] Gregg Malone, DPM [address] [address] Health Maintenance Due Date Last Done Comments [...] patient's age to complete this topic Insurance [place] [address] PLAN Care Teams Real Estate Administrator Relationship Specialty Start Date End Date Physician, Pcp Unknown PCP - General 12/08/24
[2025-01-05 08:17] LABS: MANUAL DIFF FLAG NO
[2025-01-05 08:59] LABS: Basophils Percent Auto 0.4 % (0-2); Eosinophils Absolute Auto 0.4 X10*3/uL (0.0-0.4); Eosinophils Percent Auto 4.6 % (0-4); Hematocrit 34.5 % (37.0-47.0); Hemoglobin 11.3 g/dl (12.0-16.0); Imm Gran Abs Auto 0.02 X10*3/uL (0.00-0.03); Imm Gran Pct Auto 0.2 % (0.0-0.4); Lymphocytes Absolute Auto 2.4 X10*3/uL (1.2-4.9); Lymphocytes Percent Auto 26.5 % (20-40); Mean Corpuscular HGB Conc 32.8 g/dl (31.0-35.0); Mean Corpuscular Hemoglobin 29.8 pg (27.0-33.0); Mean Platelet Volume 10.7 fL (9.4-12.3); Monocytes Absolute Auto 0.7 X10*3/uL (0.1-1.2); Monocytes Percent Auto 7.3 % (2-11); Neutrophils Absolute Auto 5.4 x10*3/uL (2.0-8.3); Platelet Count 252 X10*3/uL (160-400); Red Blood Count 3.79 X10*6/uL (4.20-5.50); Red Cell Distribution Width 12.9 % (11.0-16.0); White Blood Count 8.9 X10*3/uL (4.8-10.8)
[2025-01-05 09:38] LABS: Alanine Aminotransferase 22 U/L (0-31); Albumin Level 3.8 g/dL (3.5-5.0); Alkaline Phosphatase 84 U/L (39-117); Anion Gap 10 (12-20); Aspartate Amino Transferase 33 U/L (5-31); Bilirubin Total 0.3 mg/dL (0.0-1.0); Blood Urea Nitrogen 17 mg/dL (9-16); Calcium 8.7 mg/dL (8.4-10.2); Carbon Dioxide 28 mmol/L (22-29); Chloride 110 mmol/L (96-108); Cholesterol 173 mg/dL (<200); Estimated Glomerular Filt Rate > 60; Glucose Random 166 mg/dL (60-115); HDL Cholesterol 38 mg/dL (>40); LDL Cholesterol Calculated 110 mg/dL (<100); Potassium 5.4 mmol/L (3.3-5.1); Sodium 143 mmol/L (135-145); Total Protein 7.2 g/dL (6.5-8.0); Triglycerides 128 mg/dL (<150)
[2025-01-05 09:43] LABS: Free T4 (Free Thyroxine) 0.98 ng/dL (0.71-1.85); TSH reflex Free T4 1.88 uIU/mL (0.32-4.0)
[2025-01-05 10:00] LABS: Folate 9.5 ng/mL (> or = 4.0); Vitamin B12 708 pg/mL (200-900)
[2025-01-05 10:22] LABS: Color Urine Yellow; Glucose Urine UA Negative (Negative); Leukocyte Esterase Urine Small (1+) (Negative); Nitrite Urine Positive (Negative); PH 5.5 (5.0-9.0); UMIC TRIGGER UACC YES; Urine Blood Trace (Negative); Urine Ketones Trace mg/dL (Negative); Urine Protein 100 (2+) mg/dL (Neg-Trace)
[2025-01-05 10:24] LABS: Appearance Urine Cloudy
[2025-01-05 10:27] LABS: Bacteria Urine 4+ (None Seen); RBC Urine 0-2 /HPF (0-2); UACC Culture Trigger YES; WBC Urine 21-50 /HPF (0-5)
[2025-01-05 11:05] LABS: Creatinine Urine 182.97 mg/dL; Microalbum/Creatinine Ratio Ur 179.2 ug/mg cr (<30)
[2025-01-10 16:03] LABS: Vitamin D 25-OH, D2 <4 ng/mL; Vitamin D 25-OH, D3 19 ng/mL; Vitamin D 25-OH, Total 19 ng/mL (30-100)
== END 2025-01-05 08:00 | disposition home or self-care (01) ==
LOC: HO.LAB 07:59
PROVIDERS: Absent Provider Internal Medicine Pulmonary Disease
DX: Z00.00 Encounter for general adult medical examination without abnormal findings (principal)
CPT/HCPCS: 36415; 80053; 80061; 81001; 82043; 82306; 82570; 82607; 82746; 84439; 84443; 85025; 87086; 87088; 87186

== ENCOUNTER 2025-01-10 14:53 | Outpatient (REF) | payer OTHER, SELFPAY ==
--- NOTE | ~2025-01-10 | CT_ITS ---
EXAMINATION: CT ANGIOGRAM CHEST CLINICAL INFORMATION: Rule out AV malformation, solitary pulmonary nodule. COMPARISON: CT lung screening 11/19/2024. TECHNIQUE: Multiple axial images were obtained through the chest after the administration of 50 mL of Omnipaque 350 intravenous contrast. Extensive vascular post-processing including two-dimensional and three-dimensional reformatted images were created and reviewed on an independent workstation. This CT examination was performed using dose optimization techniques as appropriate, variously including the following: *Automated exposure control *Adjustment of mA and/or kV according to patient size (this includes techniques or standardized protocols for targeted exams where dose is matched to indication/reason for exam; i.e. extremities or head) *Use of iterative reconstruction technique FINDINGS: PULMONARY NODULES: -9 x 10 mm round pulmonary nodule in the lateral left upper lobe again noted, without enhancement or evidence of a vascular confirmation. This is consistent with a soft tissue nodule. This is unchanged (series 603, image 23).. -4 mm nodule posteromedial right upper lobe (series 7, image 24). This is stable. -2 mm nodule posterior right upper lobe subpleural region (series 603, image 39). This is stable. LUNGS: -Lungs otherwise clear. No consolidations or abnormal opacities. -Small airways are normal. -Central airways are patent. -No pleural effusion or pneumothorax. VASCULAR: -Normal aorta with mild atheromatous calcification. -No evidence of pulmonary embolus. Normal caliber main pulmonary artery. -Heart size normal. No pericardial effusion. Mild to moderate coronary calcification. MEDIASTINUM: -No adenopathy or mass. -Partially imaged thyroid normal. -Mildly patulous esophagus. -Central airways normal. -Probable small type I minus hernia. AXILLA/CHEST WALL: -Cardiac loop recorder in the left ventral chest wall. -No adenopathy or mass. UPPER ABDOMEN: -Cholecystectomy. -Imaged upper abdomen otherwise normal. OSSEOUS STRUCTURES: Unremarkable. CT/CT angio chest PE protocol IMPRESSION: 1. The left upper lobe 9 x 10 mm lateral nodule does not enhance and is not consistent with an AV malformation. This is most consistent with a solid pulmonary nodule. This remains unchanged. 2. There is no evidence of pulmonary embolus. Normal caliber pulmonary artery. 3. No evidence of acute aortic syndrome. No aortic aneurysm. 4. A few additional pulmonary nodules measuring up to 4 mm are unchanged. Electronically signed by: Devan Ochoa MD 01/10/2025 04:40 PM EDT
[2025-01-10] MEDS: iohexoL 350 MG/ML 100 ML INFUS..BTL IV (16:07)
--- OUTSIDE RECORDS SUMMARY | 2025-01-10 17:01 | XMS_ITS | Clinical Summary ---
Author Organization 175 [facility] Address 175 [place] [address] Phone Care Team Providers Care Sap Developer Name Role Phone Physician, Pcp Unknown Primary [...] Upcoming Encounters Date Type Department Care Team ([facility] st Contact Info) Description 02/28/2025 10:45 AM EDT Office Visit Orthopedic Surgery - [place] [phone] [phone] Gregg Malone, DPM [address] [address] Health Maintenance Due Date Last Done Comments [...] patient's age to complete this topic [place] [address] [address] [place] [address] Care Teams Sap Developer Relationship Specialty Start Date End Date Physician, Pcp Unknown PCP - General 12/08/24
== END 2025-01-10 14:54 | disposition home or self-care (01) ==
LOC: HO.CT 14:53
PROVIDERS: Visit Provider Internal Medicine Pulmonary Disease
DX: R91.1 Solitary pulmonary nodule (principal)
CPT/HCPCS: 71275; Q9967

== ENCOUNTER → 2025-01-10 14:55 | Outpatient (BNV) | payer OTHER, SELFPAY | PROVIDERS: Visit Provider Radiology Diagnostic Radiology | DX: R91.1 Solitary pulmonary nodule (principal) | CPT/HCPCS: 71275 ==

== ENCOUNTER 2025-01-25 10:57 | Day surgery (SDC) | payer OTHER, SELFPAY ==
--- OUTSIDE RECORDS SUMMARY | 2025-01-14 10:36 | XMS_ITS | Clinical Summary ---
Author Organization 175 [facility] Address [address] [place] [address] Phone Care Team Providers Care Assistant Manager Pt Name Role Phone Physician, Pcp Unknown Primary [...] Upcoming Encounters Date Type Department Care Team ([facility] st Contact Info) Description 02/28/2025 10:45 AM EDT Office Visit Orthopedic Surgery - [place] [phone] [phone] Gregg Malone, DPM [address] [address] Health Maintenance Due Date Last Done Comments [...] patient's age to complete this topic [place] [address] [place] [address] PLAN Care Teams Assistant Manager Pt Relationship Specialty Start Date End Date Physician, Pcp Unknown PCP - General 12/08/24
[2025-01-25] VITALS (20 sets, daily range): BP systolic 73–183; BP diastolic 39–67; PULSE 20–84; RESP 11–20; TEMP 36.4–36.9; O2SAT 95–100; BMI 26.0
--- NOTE | ~2025-01-25 | CT_ITS ---
PROCEDURES: 1. Limited preprocedure CT of the chest. Permanent images saved in PACS. 2. CT-guided biopsy of the left lung mass. 3. Limited postprocedure CT of the chest. Permanent images saved in PACS. MEDICATIONS: -Fentanyl , and lidocaine 1% -Antibiotics: None -For additional details, please see nursing flowsheet. COMPLICATIONS: None ESTIMATED BLOOD LOSS: < 5 ml CONTRAST: None SPECIMENS: 3 x 20 g cores were sent for pathology PROCEDURE NOTE: The procedure, risks, benefits, and alternatives were carefully explained to the patient and written informed consent was obtained. The patient was placed left on the CT table. A timeout was performed. A limited CT of the chest was performed to localize the left lung mass and choose appropriate needle entry and trajectory. The patient was prepped and draped in usual sterile fashion. The skin and deeper soft tissues were anesthetized with lidocaine. Under CT guidance, a19 gague trocar needle was advanced to the left lung mass. A 20 gauge biopsy device was inserted through the trocar needle and advanced into the mass. A total of 3 cores were performed. The specimens were placed in formalin and sent to pathology. The needle was removed. A dry dressing was applied and secured with Tegaderm. A limited postprocedure CT of the chest was performed, which did not demonstrate any pneumothorax or hemothorax. There were no immediate complications. The patient was stable after the procedure and was transferred to the post anesthesia care unit. The procedure was done under moderate sedation with a dedicated nurse for monitoring of vital signs. CT/CT biopsy lung LT Impression: CT-guided left lung mass biopsy Electronically signed by: Elías Zavala MD 01/25/2025 02:40 PM EDT
--- NOTE | ~2025-01-25 | XR_ITS ---
EXAMINATION: XR CHEST CLINICAL INFORMATION: S/P lung biopst COMPARISON: Correlated to CT lung biopsy dated January 25, 2025. TECHNIQUE: Frontal view of the chest was obtained. FINDINGS: No gross pneumothorax. Slight volume loss, left lung. Right lung is aerated. Deformity of the right humeral neck likely old. Multilevel thoracic spondylosis.. XR/XR chest 1V IMPRESSION: No gross pneumothorax. Recommend follow-up. Electronically signed by: Nakul Melara MD 01/26/2025 01:29 PM EDT
[2025-01-25 12:39] LABS: Prothrombin Time 11.5 SEC (10.9-12.4)
[2025-01-25 13:18] LABS: Glucose, Whole Blood 206 mg/dL (60-115)
[2025-01-25] MEDS: fentaNYL citrate/PF 100 MCG/2 ML VIAL 25 MCG IVPUSH ×2 (13:53→14:08)
== END 2025-01-25 16:26 | disposition home or self-care (01) ==
PROVIDERS: Radiology Diagnostic Radiology; Student in an Organized Health Care Education/Training Program; Visit Provider Internal Medicine Pulmonary Disease
DX: R91.1 Solitary pulmonary nodule (principal); J43.9 Emphysema, unspecified; D14.32 Benign neoplasm of left bronchus and lung; Z80.1 Family history of malignant neoplasm of trachea, bronchus and lung; E78.00 Pure hypercholesterolemia, unspecified; E11.9 Type 2 diabetes mellitus without complications; E03.9 Hypothyroidism, unspecified; K21.9 Gastro-esophageal reflux disease without esophagitis; Z79.84 Long term (current) use of oral hypoglycemic drugs; Z79.4 Long term (current) use of insulin; Z79.899 Other long term (current) drug therapy; Z98.890 Other specified postprocedural states; F17.210 Nicotine dependence, cigarettes, uncomplicated
CPT/HCPCS: 32408; 36415; 71045; 82947; 85610; 88305; 88312; J2003; J2250; J3010

== ENCOUNTER → 2025-01-25 12:49 | Outpatient (BNV) | payer OTHER, SELFPAY | PROVIDERS: Visit Provider Student in an Organized Health Care Education/Training Program | DX: R91.1 Solitary pulmonary nodule (principal) | CPT/HCPCS: 32408 ==

== ENCOUNTER 2025-02-01 10:39 | Outpatient (AMB) | payer OTHER, SELFPAY ==
[2025-02-01 10:43] VITALS: BP 118/64; PULSE 72; O2SAT 100; BMI 28.2
--- NOTE | 2025-02-01 10:43 | A.OFFVIS_ITS ---
Vital Signs 02/01/25 10:43 Height 4 ft 10 in Weight 135 lb BMI 28.2 BP 118/64 Blood Pressure Location Lt brachial Position Sitting Pulse 72 Pulse Source Doppler Pulse Oximetry (%) 100 Oxygen Delivery Method Room Air Intake Visit Reasons: f/u lung Bx Survey Research Professor Required: Yes Survey Research Professor Name: Caro Pena C.L.M Allergies fruit Allergy (Severe, Uncoded 12/14/24 14:40) itchy throat HPI HPI f/u lung Bx: Details: 59-year-old lady, active 30+ pack-year smoker referred from lung cancer screening program for new finding of 11 mm left upper lobe nodule. Patient does have multiple grandparents with history of lung cancer. After the last office visit she had negative biopsy. She does complain of intermittent dyspnea. Though, she denies acute exacerbations. [facility] Medical History History of CVA (cerebrovascular accident) (~2022) History of myocardial infarction (~2022) Hypertension Hypercholesterolemia Diabetes mellitus Hypothyroid GERD (gastroesophageal reflux disease) Nicotine dependence, cigarettes, uncomplicated Surgical History S/P insertion of iliac artery stent History of orthopedic surgery History of cataract surgery History of Family History Father No problems noted. Maternal Grandmother Stomach cancer Paternal Grandmother Lung cancer Social History (Updated 12/14/24 @ 14:53 by ANTHONY Rivas) Housing: House Alcohol intake: never Patient Tobacco Use Status: Current everyday Tobacco user Tobacco use type: Cigarette Cigarette Packs Per Day: 0.5 Cigarettes Per Day: 4 Years Smoked: (onset 18yo, 1/2-3/4ppd x 41yrs, 25PYH) e-Cigarette/Vaping Use: Never Used Second Hand Smoke Exposure: Yes service: No Current occupational status: disabled Cognitive needs: No Hearing needs: No Vision needs: No Review of Systems Const Denies daytime sleepiness, Denies excessive sweating, Denies fatigue, Denies fever(s), Denies lethargy, Denies malaise, Denies night sweats, Denies snoring and Denies weight loss Eyes Denies blurry vision and Denies itchy eyes ENT Denies nasal congestion, Denies post nasal drip, Denies sinus pain, Denies sinus pressure and Denies other ( Thrush) Card Denies chest pain, Denies pedal edema, Denies dyspnea, Denies orthopnea and Denies paroxysmal nocturnal dyspnea Resp Denies cough, Denies hemoptysis, Denies excessive phlegm production, Denies dyspnea, Denies snoring and Denies wheezing GI Denies abdominal pain and Denies heartburn Musc Denies myalgias, Denies arthralgias and Denies joint swelling Skin/Breast Denies rash Neuro Denies memory loss and Denies seizure-like activity Psych Denies abnormal sleep pattern, Denies anxiety and Denies memory loss Endo Denies excessive sweating, Denies fatigue and Denies heat intolerance Nathan/Lymph Denies easy bruising Aller/Immun Denies itchy eyes, Denies seasonal rhinorrhea and Denies wheezing Physical Exam Vital Signs: Last Vital Signs Pulse 72 02/01/25 10:43 BP 118/64 02/01/25 10:43 Pulse Ox 100 02/01/25 10:43 Oxygen Delivery Method Room Air 02/01/25 10:43 BMI result Body Mass Index 28.2 Const General: no acute distress and alert Nutritional Appearance: not obese Orientation/consciousness: Other orientation findings ( oriented) HEENT Head: Yes atraumatic Eyes General: appearance normal, both eyes and all related structures Sclerae: sclerae normal EOM: EOMs intact bilaterally Neck Neck: Yes supple Lymphatic: no lymphadenopathy noted Resp Effort & Inspection: normal respiratory effort and no use of accessory muscles Auscultation: clear to auscultation bilaterally Cardio Rate: regular rate Rhythm: regular rhythm Heart sounds: no gallops, no murmurs and no rubs Skin General skin exam: other ( warm) Extrem General: No clubbing, No cyanosis and No edema Assessment & Plan Assessment & Plan (1) Pulmonary emphysema: Code(s): J43.9 - Emphysema, unspecified Category: Medical Plan: Pulmonary function test is pending. Now with some dyspnea symptoms, will start on empiric Anoro. (2) Left upper lobe pulmonary nodule: Comment: 11 mm subpleural nodule in [facility] on 11/2024 LDCT - referral to Pulmonology for further care. Code(s): R91.1 - Solitary pulmonary nodule Category: Medical Plan: Negative biopsy, will repeat CT scan in 6 months. Orders: Orders CT chest wo IV con 07/24/25 R91.1 - Solitary pulmonary nodule Medications: New umeclidinium-vilanterol 62.5-25 mcg/actuation (Anoro Ellipta) 1 inh inhalation DAILY 1 ea 6RF Coding Level of Care Code Est Pt Level 4 (32220) Diagnoses Pulmonary emphysema J43.9 Left upper lobe pulmonary nodule R91.1
--- OUTSIDE RECORDS SUMMARY | 2025-02-01 12:42 | XMS_ITS | Clinical Summary ---
Author Organization 175 [facility] Address [address] [place] [address] Phone Care Team Providers Care Wash Driller Helper Name Role Phone Physician, Pcp Unknown Primary [...] Upcoming Encounters Date Type Department Care Team ([facility] st Contact Info) Description 02/28/2025 10:45 AM EDT Office Visit Orthopedic Surgery - [place] [phone] [phone] Gregg Malone, DPM [address] [address] Health Maintenance Due Date Last Done Comments [...] patient's age to complete this topic [place] [address] [address] [place] [address] PLAN Care Teams Wash Driller Helper Relationship Specialty Start Date End Date Physician, Pcp Unknown PCP - General 12/08/24
== END 2025-02-01 10:58 | disposition home or self-care (01) ==
LOC: HO.HPS 10:40
PROVIDERS: Visit Provider Internal Medicine Pulmonary Disease
DX: J43.9 Emphysema, unspecified (principal); R91.1 Solitary pulmonary nodule
CPT/HCPCS: 99214

== ENCOUNTER → 2025-02-01 10:39 | Outpatient (BNVA) | payer OTHER, SELFPAY | PROVIDERS: Visit Provider Internal Medicine Pulmonary Disease | DX: J43.9 Emphysema, unspecified (principal); R91.1 Solitary pulmonary nodule; F17.210 Nicotine dependence, cigarettes, uncomplicated | CPT/HCPCS: 99212 ==

== ENCOUNTER 2025-02-07 09:08 | Outpatient (AMB) | payer OTHER, SELFPAY ==
[2025-02-07 09:10] VITALS: BP 138/60; PULSE 64; BMI 28.2
--- NOTE | 2025-02-07 09:10 | A.OFFVIS_ITS ---
Vital Signs 02/07/25 09:10 Height 4 ft 10 in Weight 134 lb 14.766 oz BMI 28.2 BP 138/60 Blood Pressure Location Lt brachial Position Sitting Pulse 64 Pulse Source Palpation Intake Visit Reasons: 2 mth f/up/echo Protective Signal Repairer Helper Required: Yes Protective Signal Repairer Helper Services: Protective Signal Repairer Helper Present Protective Signal Repairer Helper Name: adriana/ Accompanied by: Daughter Allergies fruit Allergy (Severe, Uncoded 12/14/24 14:40) itchy throat Medication List - Last Reconciled 02/07/25 by Abhilash Churchill MD acetaminophen (Tylenol Extra Strength) 500 mg PO Q6H PRN aspirin 81 mg PO DAILY atorvastatin 80 mg PO DAILY blood sugar diagnostic (FreeStyle Lite Strips) As directed; TID blood-glucose meter (FreeStyle Lite Meter kit) As directed clopidogrel 75 mg PO DAILY empagliflozin (Jardiance) 10 mg PO DAILY gabapentin 600 mg PO DAILY insulin glargine 15 units (0.15 mL) subcut QPM lancets (FreeStyle Lancets) As directed; TID levothyroxine 25 mcg PO DAILY losartan 25 mg PO DAILY metformin 850 mg PO DAILY metoprolol succinate ER 25 mg PO DAILY pantoprazole 40 mg PO DAILY [Pen needles 5mm As directed] umeclidinium-vilanterol 62.5-25 mcg/actuation (Anoro Ellipta) 1 inh inhalation DAILY [Wheelchair As directed] HPI Comments Details: Yuridia returns for follow-up regarding coronary artery disease and other issues. It seems that she has seen Cardiology in [place] and has lot of vascular disease. She underwent diagnostic catheterization in 2022. Based on that, mid LAD with 70% stenosis. Proximal circumflex with 80% stenosis and RCA with mid 60-70% stenosis. Nothing significant in left main. Left ventriculogram with EF > 70%. Not entirely clear if she had any interventions but nothing mentioned in the catheterization diagram. Otherwise, she also has lower extremity vascular disease. Again a prior discharge summary describes aortoiliac occlusive disease and bilateral lower extremity critical limb ischemia for which she underwent bilateral iliac stenting. Listed risk factors include diabetes, hypertension, dyslipidemia. There is also mention of cerebrovascular accident in the past. Additionally, it seems she has implantable loop recorder in place due to stroke. Since last seen, no new concerns. She states she feels okay. No angina. Otherwise getting along. She is still smoking. PFSH Medical History History of CVA (cerebrovascular accident) (~2022) History of myocardial infarction (~2022) Hypertension Hypercholesterolemia Diabetes mellitus Hypothyroid GERD (gastroesophageal reflux disease) Nicotine dependence, cigarettes, uncomplicated Surgical History S/P insertion of iliac artery stent History of orthopedic surgery History of cataract surgery History of Family History Father No problems noted. Maternal Grandmother Stomach cancer Paternal Grandmother Lung cancer Social History Housing: House Alcohol intake: never Patient Tobacco Use Status: Current everyday Tobacco user Tobacco use type: Cigarette Cigarette Packs Per Day: 0.5 Cigarettes Per Day: 4 Years Smoked: (onset 18yo, 1/2-3/4ppd x 41yrs, 25PYH) e-Cigarette/Vaping Use: Never Used Second Hand Smoke Exposure: Yes service: No Current occupational status: disabled Cognitive needs: No Hearing needs: No Vision needs: No Review of Systems Const Denies chills, Denies fatigue, Denies fever(s), Denies weight gain and Denies weight loss ENT Denies dizziness Card Denies chest pain, Denies leg edema, Denies lightheadedness, Denies palpitations, Denies dyspnea on exertion, Denies orthopnea and Denies other Resp Denies cough and Denies dyspnea on exertion GI Denies hematochezia and Denies change in stool character Musc Denies abnormal gait, Denies muscle weakness, Denies numbness, Denies radiating pain into limb and Denies tingling Neuro Denies abnormal gait, Denies dizziness, Denies numbness and Denies tingling Endo Denies fatigue and Denies palpitations Physical Exam Vital Signs: Last Vital Signs Pulse 64 02/07/25 09:10 BP 138/60 02/07/25 09:10 BMI result Body Mass Index 28.2 Const General: comfortable and no acute distress Orientation/consciousness: patient oriented x3 HEENT Other: Unremarkable Head: Yes normal to inspection Neck Neck: Yes normal visual inspection Chest Chest palpation & inspection: normal inspection of the chest Resp Auscultation: clear to auscultation bilaterally Cardio Palpation: normal PMI Heart sounds: S1 normal heart sound present, S2 normal heart sound present, no gallops, no murmurs and no rubs GI Palpation (GI): Soft to palpation Back/Spine/Pelvis Other: unremarkable Skin General skin exam: no rashes or lesions noted Neuro General: patient oriented x3 Extrem General: Yes normal to inspection Psych Mental Status: mental status grossly normal Assessment & Plan Assessment & Plan (1) Coronary artery disease: Code(s): I25.10 - Atherosclerotic heart disease of [place] coronary artery without angina pectoris Category: Medical (2) Diabetes mellitus: Comment: (IDDM2) Code(s): E11.9 - Type 2 diabetes mellitus without complications Category: Medical (3) Hypertension: Code(s): I10 - Essential (primary) hypertension Category: Medical (4) Hypercholesterolemia: Code(s): E78.00 - Pure hypercholesterolemia, unspecified Category: Medical (5) Implantable loop recorder present: Code(s): Z95.818 - Presence of other cardiac implants and grafts Category: Medical Plan Cardiac catheterization 2022-mid LAD with 70% stenosis. Proximal circumflex with 80% stenosis and RCA with mid 60-70% stenosis. Nothing significant left main. Lower extremity vascular disease per documentation with bilateral iliac stenting. In the recent echocardiogram, LVEF is 45%. Mild global hypokinesis. Overall, extensive cardiovascular risk factors with established coronary disease, mild cardiomyopathy but no active symptoms. With regard to medications, she seems to be on dual antiplatelet medications and that can be continued. Continue statins and she states that the dose was also increased recently. Optimal management of diabetes. However, not well controlled as hemoglobin A1c is more than 10%. She must stop smoking and we discussed that length today. Overall, very high risk of cardiovascular complications including myocardial infarction, stroke and . Discussed. Implantable loop recorder can be followed remotely. We will follow up in about 3-4 months. Coding Level of Care Code Est Pt Level 4 (89921) Complex EM visit Add On G2211 Diagnoses Coronary artery disease I25.10 Diabetes mellitus E11.9 Hypertension I10 Hypercholesterolemia E78.00 Implantable loop recorder present Z95.818
--- OUTSIDE RECORDS SUMMARY | 2025-02-07 10:09 | XMS_ITS | Clinical Summary ---
Author Organization [facility] Address [address] [place] [address] Phone Care Team Providers Care A And P Mechanic Name Role Phone Physician, Pcp Unknown Primary [...] AM EDT Office Visit Orthopedic Surgery - [place] [id number] [phone] Gregg Malone, DPM [address] [address] Health Maintenance Due Date Last Done Comments [...] Influencers of Health Screening 09/10/2024 RSV Immunization Adult Patie nts (1 - 1-dose 75+ series) 2039 HIB [...] patient's age to complete this topic [place] [address] [address] PLAN Care Teams A And P Mechanic Relationship Specialty Start Date End Date Physician, Pcp Unknown PCP - General 12/08/24
== END 2025-02-07 09:28 | disposition home or self-care (01) ==
LOC: HO.HCS 09:09
PROVIDERS: Visit Provider Internal Medicine
DX: I25.10 Atherosclerotic heart disease of native coronary artery without angina pectoris (principal); E11.9 Type 2 diabetes mellitus without complications; I10 Essential (primary) hypertension; E78.00 Pure hypercholesterolemia, unspecified; Z95.818 Presence of other cardiac implants and grafts
CPT/HCPCS: 99214; G2211

== ENCOUNTER → 2025-02-07 09:08 | Outpatient (BNVA) | payer OTHER, SELFPAY | PROVIDERS: Visit Provider Internal Medicine | DX: I25.10 Atherosclerotic heart disease of native coronary artery without angina pectoris (principal); E11.9 Type 2 diabetes mellitus without complications; I10 Essential (primary) hypertension; E78.00 Pure hypercholesterolemia, unspecified; Z95.818 Presence of other cardiac implants and grafts | CPT/HCPCS: 99212 ==

== ENCOUNTER → 2025-02-19 23:59 | Outpatient (BNV) | payer OTHER, SELFPAY ==
--- NOTE | 2025-02-27 15:03 | MHC.OFFVIS ---
Intake Visit Reasons: remote ILR check- [employer] Allergies fruit Allergy (Severe, Uncoded 12/14/24 14:40) itchy throat PFSH Medical History History of CVA (cerebrovascular accident) (~2022) History of myocardial infarction (~2022) Hypertension Hypercholesterolemia Diabetes mellitus Hypothyroid GERD (gastroesophageal reflux disease) Nicotine dependence, cigarettes, uncomplicated Surgical History S/P insertion of iliac artery stent History of orthopedic surgery History of cataract surgery History of Family History Father No problems noted. Maternal Grandmother Stomach cancer Paternal Grandmother Lung cancer Social History Housing: House Alcohol intake: never Patient Tobacco Use Status: Current everyday Tobacco user Tobacco use type: Cigarette Cigarette Packs Per Day: 0.5 Cigarettes Per Day: 4 Years Smoked: (onset 18yo, 1/2-3/4ppd x 41yrs, 25PYH) e-Cigarette/Vaping Use: Never Used Second Hand Smoke Exposure: Yes service: No Current occupational status: disabled Cognitive needs: No Hearing needs: No Vision needs: No Office Procedures Cardiac Device Check Cardiac Device Check Details: Date of service 02/19/2025; in the current monitoring period, there is no evidence of atrial fibrillation. PVC 0.1%. [id number] Cardiac Interrogation, subcut cardiac rhythm monitor Procedure code (CPT) selection complete Assessment & Plan Assessment & Plan (1) Implantable loop recorder present: Code(s): Z95.818 - Presence of other cardiac implants and grafts Category: Medical (2) History of CVA (cerebrovascular accident): Onset Date: ~2022 Code(s): Z86.73 - Personal history of transient ischemic attack (TIA), and cerebral infarction without residual deficits Category: Medical Plan x Coding Level of Care Code Procedure Only Diagnoses Implantable loop recorder present Z95.818 History of CVA (cerebrovascular accident) Z86.73 CPT Codes Cardiac Device Check - Cardiac Device 16: [id number] Cardiac Interrogation, subcut cardiac rhythm monitor ([id number])
== END ==
PROVIDERS: Visit Provider Internal Medicine
DX: I63.9 Cerebral infarction, unspecified (principal); Z95.818 Presence of other cardiac implants and grafts
CPT/HCPCS: 93298

== ENCOUNTER 2025-03-14 10:57 | Outpatient (AMB) | payer OTHER, SELFPAY ==
--- NOTE | 2025-03-14 11:06 | A.OFFPC_ITS ---
Vital Signs 03/14/25 11:07 Height 4 ft 10 in Weight 136 lb 10.986 oz BMI 28.6 BP 120/76 Blood Pressure Location Lt brachial Position Sitting Pulse 71 Pulse Source Pulse Oximeter Temp 96.1 F L Temp Source Temporal Artery Scan Pulse Oximetry (%) 99 Oxygen Delivery Method Room Air Intake Visit Reasons: f/u DM Intake Note: Patient is here to follow up on DM. Legal Office Administrator Required: Yes Legal Office Administrator Language: German Information Interpreted: non-clinical & clinical Geometry Tutor: Present Accompanied by: Daughter Allergies fruit Allergy (Severe, Uncoded 03/14/25 11:27) itchy throat Medication List - Last Reconciled 03/14/25 by Chanda Pozo PA-C acetaminophen (Tylenol Extra Strength) 500 mg PO Q6H PRN aspirin 81 mg PO DAILY atorvastatin 80 mg PO DAILY blood sugar diagnostic (FreeStyle Lite Strips) As directed; TID blood-glucose meter (FreeStyle Lite Meter kit) As directed clopidogrel 75 mg PO DAILY empagliflozin (Jardiance) 10 mg PO DAILY gabapentin 600 mg PO DAILY insulin glargine 15 units (0.15 mL) subcut QPM lancets (FreeStyle Lancets) As directed; TID levothyroxine 25 mcg PO DAILY losartan 25 mg PO DAILY metformin 850 mg PO DAILY metoprolol succinate ER 25 mg PO DAILY pantoprazole 40 mg PO DAILY [Pen needles 5mm As directed] umeclidinium-vilanterol 62.5-25 mcg/actuation (Anoro Ellipta) 1 inh inhalation DAILY [Wheelchair As directed] Tobacco use date assessed: 03/14/25 Dental Screening Dental Screen Date: 12/14/24 HPI f/u DM HPI Details 59-year-old female with past medical his tory tobacco abuse, anxiety, depression, GERD, hypothyroid, diabetes mellitus, hypertension, hypercholesterolemia, CVA and [place] last seen 12/2024 coming in for follow up. In review of the notes, patient was seen by Cardiology 02/2025 continue on dual antiplatelet therapy, continue on statin. Discussed the importance of smoking cessation advised control of diabetes. Seen by pulmonology 02/2025 after being referred by lung cancer screening program for new finding of 11 mm left upper lobe nodule biopsy was negative repeat scan in 6 months and started on Anoro Ellipta. promotions assistant [id number] Vladimir was used for the duration of this visit. Presenting for follow-up regarding diabetes management and associated neuropathic pain. She reports persistent pain in the forward toes, for which gabapentin 600 mg has been helping. The patient has missed her podiatry appointment due to lack of address information. She follows a diabetes regimen including Jardiance 10 mg and mistakenly takes metformin 850 mg twice daily. Insulin usage has lapsed two months ago due to refrigerator malfunction, affecting its efficacy. She also conveys neck discomfort, a stabbing pain when lying down, experienced over the past three months, likely muscular in nature. [facility] Medical History History of CVA (cerebrovascular accident) (~2022) History of myocardial infarction (~2022) Hypertension Hypercholesterolemia Diabetes mellitus Hypothyroid GERD (gastroesophageal reflux disease) Nicotine dependence, cigarettes, uncomplicated Surgical History History of lung biopsy S/P insertion of iliac artery stent History of orthopedic surgery History of cataract surgery History of Family History Father No problems noted. Maternal Grandmother Stomach cancer Paternal Grandmother Lung cancer Social History Housing: House Alcohol intake: never Patient Tobacco Use Status: Current everyday Tobacco user Tobacco use type: Cigarette Cigarette Packs Per Day: 0.5 Cigarettes Per Day: 4 Years Smoked: (onset 18yo, 1/2-3/4ppd x 41yrs, 25PYH) e-Cigarette/Vaping Use: Never Used Second Hand Smoke Exposure: Yes service: No Current occupational status: disabled Cognitive needs: No Hearing needs: No Vision needs: No Questionnaire PHQ-9 Over the last 2 weeks, how often have you been bothered by any of the following problems? 1. Little interest or pleasure in doing things: not at all 2. Feeling down, depressed, or hopeless: not at all 3. Trouble falling or staying asleep, or sleeping too much: several days 4. Feeling tired or having little energy: not at all 5. Poor appetite or overeating: not at all 6. Feeling bad about yourself - or that you are a failure or have let yourself or your family down: not at all 7. Trouble concentrating on things, such as reading the newspaper or watching television: not at all 8. Moving or speaking so slowly that other people could have noticed. Or the opposite - being so fidgety or restless that you have been moving around a lot more than usual: not at all 9. Thoughts that you would be better off or of hurting yourself in some way: not at all Total score: 1 Depression Screening Interpretation: Negative Depression Screening Done: Yes Source: Developed by Drs. Teo Fagan, Genesis Kinney, Mihir Taylor and colleagues, with an educational lisa from [employer]. Thrive Questionnaire Date Thrive assessed: 12/14/24 I am a: Parent/Caregiver What is your living situation today?: I have a steady place to live Within the past 12 months, did the food you bought not last and you didn't have the money to get more?: I choose not to answer this question Within the past 12 months, did you worry whether your food would run out before you got money to buy more?: I choose not to answer this question Do you have trouble paying for medicines?: I choose not to answer this question Do you have trouble getting transportation to medical appointments?: No Do you have trouble paying your heating and electricity bill?: No Do you have trouble taking care of your child, family member or friend?: No Do you have trouble with day-to-day activities such as bathing, preparing meals, shopping, managing finances, etc.?: No Are you currently unemployed and looking for a job?: No Are you interested in more education?: I choose not to answer this question Please select the resources that you would like help with: None Currently or been in a relationship where the following occur: No concerns reported and I choose not to answer THRIVE Score: 0 AUDIT C Alcohol Use Questionnaire (AUDIT-C) 1. How often do you have a drink containing alcohol?: Never Total Score: 0 AVERY-7 AMB Questionnaire AVERY-7 Date AVERY - 7 assessed: 12/14/24 Feeling nervous, anxious, or on edge: 0 = Not at all Not being able to stop or control worryin = Not at all Worrying too much about different things: 0 = Not at all Trouble relaxin = Several days Being so restless that it is hard to sit still: 0 = Not at all Becoming easily annoyed or irritable: 0 = Not at all Feeling afraid as if something awful might happen: 0 = Not at all Total AVERY-7 score (0-4 normal; 5-9 mild; 10-14 moderate; 15-21 severe): 1 Source: Developed by Drs. Teo Fagan, Genesis Kinney, Mihir Taylor and colleagues, with an educational lisa from [employer]. Review of Systems Const Denies body aches, Denies chills, Denies fever(s), Denies headache(s) and Denies poor appetite Eyes Reports no additional complaints ENT Denies dysphagia, Denies dizziness, Denies headache(s) and Denies odynophagia Card Denies chest pain, Denies syncope, Denies edema, Denies irregular heart rhythm, Denies lightheadedness and Denies dyspnea Resp Denies cough and Denies dyspnea GI Denies abdominal pain, Denies constipation, Denies dysphagia, Denies diarrhea, Denies nausea, Denies odynophagia and Denies vomiting Reports no additional complaints Musc Reports no additional complaints and Denies abnormal gait Skin/Breast Reports system reviewed and no additional complaints, except as documented Neuro Denies abnormal gait, Denies dizziness, Denies syncope and Denies headache(s) Psych Reports no additional complaints Physical exam (Primary Care) Vital Signs: Last Vital Signs Temp 96.1 F L 03/14/25 11:07 Pulse 71 03/14/25 11:07 BP 120/76 03/14/25 11:07 Pulse Ox 99 03/14/25 11:07 Oxygen Delivery Method Room Air 03/14/25 11:07 BMI result Body Mass Index 28.6 Tobacco/Smoking Status: Tobacco use Status Tobacco use date assessed 03/14/25 03/14/25 11:07 Patient Tobacco Use Status Current everyday Tobacco 03/14/25 11:07 Tobacco use type Cigarette 03/14/25 11:07 e-Cigarette/Vaping Use Never Used 03/14/25 11:07 PHQ-9: PHQ-9 Score PHQ-9: Total score 1 03/14/25 11:57 Depression Screening Interpretation: Negative Thrive Assessment: Date of Thrive Assessment Date Thrive assessed 12/14/24 03/14/25 11:07 Currently or been in a relationship where the following occur: No concerns reported and I choose not to answer Const General: cooperative, healthy appearing, comfortable and no acute distress Orientation/consciousness: patient oriented x3 [facility] Head: Yes normocephalic Ears: hearing grossly normal bilaterally General nose exam: Normal external nose present Eyes General: appearance normal, both eyes and all related structures Conjunctivae: conjunctivae normal Neck Neck: Yes full ROM and Yes no lymphadenopathy Resp Effort & Inspection: normal respiratory effort Auscultation: clear to auscultation bilaterally, no crackles, no rales, no rhonchi and no wheezes Cardio Rate: regular rate Rhythm: regular rhythm Back/Spine/Pelvis Other: Tenderness to palpation over cervical spine and paraspinal muscle Skin General skin exam: no rashes or lesions noted Neuro General: patient oriented x3 Gait exam (Neuro): Normal gait present Extrem General: Yes normal to inspection, Yes full ROM and No edema Psych Affect: normal affect Attitude: cooperative Insight: Good insight present (Psych) Judgement: Good judgement present (Psych) Results AMB Hemoglobin A1c AMB Hemoglobin A1c 10.4 % Last Edit by ANTHONY Rivas on 03/14/25 11:2 7 Results Reviewed Results Reviewed: Laboratory Last Values Hgb A1c (Clinic) 10.4 % (4.0-6.0) H 03/14/25 11:07 Coding Level of Care Code Est Pt Level 4 (15587) Diagnoses Coronary artery disease I25.10 Left upper lobe pulmonary nodule R91.1 History of CVA (cerebrovascular accident) Z86.73 Hypertension I10 Hypercholesterolemia E78.00 Nicotine dependence, cigarettes, uncomplicated F17.210 Foot pain M79.673 Uncontrolled diabetes mellitus with hyperglycemia E11.65 Neck pain M54.2 Assessment & Plan Assessment & Plan (1) Coronary artery disease: Code(s): I25.10 - Atherosclerotic heart disease of [place] coronary artery without angina pectoris Category: Medical Plan: Recently seen by Cardiology echocardiogram was obtained. They recommended continue on dual antiplatelet therapy and managing contributing risk factors. Advised good control of blood pressure, cholesterol and diabetes mellitus. (2) Left upper lobe pulmonary nodule: Comment: 11 mm subpleural nodule in [facility] on 11/2024 LDCT - referral to Pulmonology for further care. Code(s): R91.1 - Solitary pulmonary nodule Category: Medical Plan: Recently completed lung cancer screening program which revealed a 11 mm subpleural nodule in the left upper lobe. Patient was seen by pulmonology biopsy was negative plan to repeat CAT scan in 6 months per pulmonology. (3) History of CVA (cerebrovascular accident): Onset Date: ~2022 Code(s): Z86.73 - Personal history of transient ischemic attack (TIA), and cerebral infarction without residual deficits Category: Medical Plan: Patient has a history of CVA making her LDL goal less than 70. Advised good control of blood pressure, cholesterol and diabetes. Currently on dual antiplatelet therapy with clopidogrel and aspirin (4) Hypertension: Code(s): I10 - Essential (primary) hypertension Category: Medical Plan: Continue on current blood pressure medication. Avoid salt intake and encourage healthy diet and regular exercise. (5) Hypercholesterolemia: Code(s): E78.00 - Pure hypercholesterolemia, unspecified Category: Medical Plan: Avoid foods that are high in cholesterol such as red meat, fried foods, eggs and baked goods. Triglyceride goal of less than 150 and LDL goal of less than 70. Continue on atorvastatin 80 mg which was recently increased and repeat lipids in 3 months (6) Nicotine dependence, cigarettes, uncomplicated: Comment: (current smoker - onset 18yo, 1/2-3/4ppd x 41yrs, 25PYH) Code(s): F17.210 - Nicotine dependence, cigarettes, uncomplicated Category: Medical Plan: Smoking cigarettes and the use of tobacco can be harmful. We discussed the importance of stopping and options to aid in smoking cessation. Annual lung cancer screening program completed (7) Foot pain: Code(s): M79.673 - Pain in unspecified foot Category: Medical Plan: Patient having bilateral foot pain on gabapentin and feels good on this medication. She did miss her podiatry appointment because she did not know the address. Patient was provided with the address and phone number of the process equipment operator today advised to reschedule appointment. (8) Uncontrolled diabetes mellitus with hyperglycemia: Code(s): E11.65 - Type 2 diabetes mellitus with hyperglycemia Category: Medical Plan: Decrease the amount of carbohydrates such as pasta, bread, rice, and potatoes and limit the amount of sweets. Although fruits are generally healthy they should be eaten in moderation as they are still high in sugar. Hemoglobin A1c goal of less than 7%. A1c in the clinic today increased from 8.4% to 10.4%. Patient has been without her insulin for 2 months due to lack of refrigerator. Discussed with patient treatment options at this time. Advised to take her metformin only once daily as prescribed, continue on Jardiance 10 mg. Plan to start on Ozempic weekly as it does not require refer duration once opened. Referral was placed to endocrinology as well. I discussed the importance of blood sugars in the relation to her coronary artery disease. Patient understands the risk of elevated blood sugars at risk for cardiovascular events. Advised patient to reach out once refrigerator is back in working order. (9) Neck pain: Code(s): M54.2 - Cervicalgia Category: Medical Plan: Patient having tenderness to palpation over cervical spine plan to obtain x-ray for further evaluation. Patient may use Tylenol and lidocaine patches as needed for pain. Plan For diabetes, Ozempic will replace insulin temporarily, alongside continuing Jardiance and adjusting metformin to once daily. Neuropathic pain remains controlled on gabapentin. The musculoskeletal issue will be assessed further with a neck x-ray, and lidocaine patches, alongside Tylenol, will address the pain. The patient will follow up in three months with rechecked cholesterol levels. Referral to an environmental protection geologist and rescheduling with a process equipment operator will be facilitated. Dietary counseling to limit carbohydrates is advised given current challenges with refrigeration impacting food storage. Continuity of medication handling is crucial, with updates on refrigerator repair progress requested. This note was constructed using voice recognition software. While every effort has been made to ensure accuracy and stacker, still areas may have been included sometimes these areas may affect the content or meeting of the given symptoms. Total time spent caring for the patient today was 20 minutes. This includes time spent before the visit reviewing the chart, time spent during the visit, and time spent after the visit and documentation. Patient was informed and verbally consented to the use of an ambient scribe for clinic note documentation during this visit. Orders: Orders XR cervical spine 2V Today M54.2 - Cervicalgia AMB Hemoglobin A1c Today E11.9 - Type 2 diabetes mellitus without complications Referrals Endocrinology Referral E11.65 - Type 2 diabetes mellitus with hyperglycemia Medications: New lidocaine 5% leave on most painful area for up to 12 hrs 1 patch topical DAILY 30 ea 0RF M54.2 - Cervicalgia semaglutide (Ozempic) for 4 weeks 0.25 mg (0.368 mL) subcut QWEEK 3 mL 0RF On Hold insulin glargine Hold Comment: no refrigerator 15 units (0.15 mL) subcut QPM 15 mL 0RF
[2025-03-14 11:07] VITALS: BP 120/76; PULSE 71; TEMP 35.6; O2SAT 99; BMI 28.6
== END 2025-03-14 11:59 | disposition home or self-care (01) ==
LOC: HO.HMCH 10:58
DX: I25.10 Atherosclerotic heart disease of native coronary artery without angina pectoris (principal); R91.1 Solitary pulmonary nodule; E11.65 Type 2 diabetes mellitus with hyperglycemia; E11.9 Type 2 diabetes mellitus without complications; Z86.73 Personal history of transient ischemic attack (TIA), and cerebral infarction without residual deficits; I10 Essential (primary) hypertension; E78.00 Pure hypercholesterolemia, unspecified; F17.210 Nicotine dependence, cigarettes, uncomplicated; M79.673 Pain in unspecified foot; M54.2 Cervicalgia

== ENCOUNTER → 2025-03-14 10:57 | Outpatient (BNVA) | payer OTHER, SELFPAY | DX: I25.10 Atherosclerotic heart disease of native coronary artery without angina pectoris (principal); R91.1 Solitary pulmonary nodule; F17.210 Nicotine dependence, cigarettes, uncomplicated; M79.673 Pain in unspecified foot; E11.65 Type 2 diabetes mellitus with hyperglycemia; M54.2 Cervicalgia; F41.9 Anxiety disorder, unspecified; F32.A Depression, unspecified; K21.9 Gastro-esophageal reflux disease without esophagitis; E03.9 Hypothyroidism, unspecified; I10 Essential (primary) hypertension; E78.00 Pure hypercholesterolemia, unspecified; I25.2 Old myocardial infarction; Z86.73 Personal history of transient ischemic attack (TIA), and cerebral infarction without residual deficits | CPT/HCPCS: 83036; 99212 ==

== ENCOUNTER → 2025-03-21 23:59 | Outpatient (BNV) | payer OTHER, SELFPAY ==
--- NOTE | 2025-03-23 13:26 | MHC.OFFVIS ---
Intake Visit Reasons: Remote ILR check- [employer] Allergies fruit Allergy (Severe, Uncoded 03/14/25 11:27) itchy throat PFSH Medical History History of CVA (cerebrovascular accident) (~2022) History of myocardial infarction (~2022) Hypertension Hypercholesterolemia Diabetes mellitus Hypothyroid GERD (gastroesophageal reflux disease) Nicotine dependence, cigarettes, uncomplicated Surgical History History of lung biopsy S/P insertion of iliac artery stent History of orthopedic surgery History of cataract surgery History of Family History Father No problems noted. Maternal Grandmother Stomach cancer Paternal Grandmother Lung cancer Social History Housing: House Alcohol intake: never Patient Tobacco Use Status: Current everyday Tobacco user Tobacco use type: Cigarette Cigarette Packs Per Day: 0.5 Cigarettes Per Day: 4 Years Smoked: (onset 18yo, 1/2-3/4ppd x 41yrs, 25PYH) e-Cigarette/Vaping Use: Never Used Second Hand Smoke Exposure: Yes service: No Current occupational status: disabled Cognitive needs: No Hearing needs: No Vision needs: No Office Procedures Cardiac Device Check Cardiac Device Check Details: Date of service 03/21/2025; in the current monitoring period, there is no evidence of atrial fibrillation. [id number] Cardiac Interrogation, subcut cardiac rhythm monitor Procedure code (CPT) selection complete Assessment & Plan Assessment & Plan (1) Implantable loop recorder present: Code(s): Z95.818 - Presence of other cardiac implants and grafts Category: Medical (2) Coronary artery disease: Code(s): I25.10 - Atherosclerotic heart disease of [place] coronary artery without angina pectoris Category: Medical Plan x Coding Level of Care Code Procedure Only Diagnoses Implantable loop recorder present Z95.818 Coronary artery disease I25.10 CPT Codes Cardiac Device Check - Cardiac Device 16: [id number] Cardiac Interrogation, subcut cardiac rhythm monitor ([id number])
== END ==
PROVIDERS: Visit Provider Internal Medicine
DX: I25.10 Atherosclerotic heart disease of native coronary artery without angina pectoris (principal); Z95.818 Presence of other cardiac implants and grafts
CPT/HCPCS: 93298

== ENCOUNTER → 2025-05-20 23:59 | Outpatient (BNV) | payer OTHER, SELFPAY ==
--- NOTE | 2025-05-30 13:31 | A.OFFVIS_ITS ---
Intake Visit Reasons: Remote ILR check- [employer] Allergies fruit Allergy (Severe, Uncoded 03/14/25 11:27) itchy throat PFSH Medical History History of CVA (cerebrovascular accident) (~2022) History of myocardial infarction (~2022) Hypertension Hypercholesterolemia Diabetes mellitus Hypothyroid GERD (gastroesophageal reflux disease) Nicotine dependence, cigarettes, uncomplicated Surgical History History of lung biopsy S/P insertion of iliac artery stent History of orthopedic surgery History of cataract surgery History of Family History Father No problems noted. Maternal Grandmother Stomach cancer Paternal Grandmother Lung cancer Social History Housing: House Alcohol intake: never Patient Tobacco Use Status: Current everyday Tobacco user Tobacco use type: Cigarette Cigarette Packs Per Day: 0.5 Cigarettes Per Day: 4 Years Smoked: (onset 18yo, 1/2-3/4ppd x 41yrs, 25PYH) e-Cigarette/Vaping Use: Never Used Second Hand Smoke Exposure: Yes service: No Current occupational status: disabled Cognitive needs: No Hearing needs: No Vision needs: No Office Procedures Cardiac Device Check Cardiac Device Check Details: Date of service 05/20/2025; in the current monitoring period, there is no eviden ce of atrial fibrillation. [id number] Cardiac Interrogation, subcut cardiac rhythm monitor Procedure code (CPT) selection complete Assessment & Plan Assessment & Plan (1) Implantable loop recorder present: Code(s): Z95.818 - Presence of other cardiac implants and grafts Category: Medical (2) History of CVA (cerebrovascular accident): Onset Date: ~2022 Code(s): Z86.73 - Personal history of transient ischemic attack (TIA), and cerebral infarction without residual deficits Category: Medical Plan x Coding Level of Care Code Procedure Only Diagnoses Implantable loop recorder present Z95.818 History of CVA (cerebrovascular accident) Z86.73 CPT Codes Cardiac Device Check - Cardiac Device 16: [id number] Cardiac Interrogation, subcut cardiac rhythm monitor ([id number])
== END ==
PROVIDERS: Visit Provider Internal Medicine
DX: Z86.73 Personal history of transient ischemic attack (TIA), and cerebral infarction without residual deficits (principal); Z95.818 Presence of other cardiac implants and grafts
CPT/HCPCS: 93298

== ENCOUNTER 2025-06-14 11:20 | Outpatient (AMB) | payer OTHER, SELFPAY ==
--- NOTE | 2025-06-14 11:31 | MHC.PC.OV ---
Vital Signs 06/14/25 11:33 06/14/25 12:12 Height 4 ft 10 in Weight 135 lb 12.876 oz BMI 28.4 BP 104/58 L 118/60 Blood Pressure Location Lt brachial Lt brachial Position Sitting Sitting Pulse 67 Pulse Source Pulse Oximeter Pulse Oximetry (%) 97 Oxygen Delivery Method Room Air Intake Visit Reasons: f/u DM and HLD Lead Pl Sql Developer Required: No Accompanied by: Self / Same As Patient Allergies fruit Allergy (Severe, Uncoded 06/14/25 11:40) itchy throat Medication List - Last Reconciled 06/14/25 by Chanda Pozo PA-C acetaminophen (Tylenol Extra Strength) 500 mg PO Q6H PRN aspirin 81 mg PO DAILY atorvastatin 80 mg PO DAILY blood sugar diagnostic (FreeStyle Lite Strips) As directed; TID blood-glucose meter (FreeStyle Lite Meter kit) As directed clopidogrel 75 mg PO DAILY dulaglutide (Trulicity) 0.75 mg (0.5 mL) subcut QWEEK empagliflozin (Jardiance) 10 mg PO DAILY gabapentin 600 mg PO DAILY insulin glargine 15 units (0.15 mL) subcut QPM Held on 03/14/25. Instructions: no refrigerator lancets (FreeStyle Lancets) As directed; TID levothyroxine 25 mcg PO DAILY lidocaine 5% 1 patch topical DAILY losartan 25 mg PO DAILY metformin 850 mg PO DAILY metoprolol succinate ER 25 mg PO DAILY pantoprazole 40 mg PO DAILY [Pen needles 5mm As directed] umeclidinium-vilanterol 62.5-25 mcg/actuation (Anoro Ellipta) 1 inh inhalation DAILY [Wheelchair As directed] Tobacco use date assessed: 06/14/25 Dental Screening Dental Screen Date: 06/14/25 Did you have a dental visit in the last 12 months?: Yes Did you have a dental problem in the last 6 months where you did not have access to dental care?: No Was dental information given to patient?: Patient has dentist HPI f/u DM and HLD HPI Details 60-year-old female with past medical history of tobacco abuse, anxiety, depression, GERD, hypothyroid, uncontrolled diabetes mellitus, hypertension, hypercholesterolemia, CVA and OK last seen 03/27 coming in for follow up. quill reamer Shira [id number] was used for the duration of this visit. Presenting with foot pain and bleeding. The patient reported an injury to the toenail last night, which resulted in the nail releasing from its place and bleeding. She experienced stabbing pain in the upper part of the foot and numbness, attributed to diabetic neuropathy. She has not seen a licensed land surveyor before for this issue. The patient also experiences anxiety, which she manages by smoking, although she has attempted to quit. She has tried sertraline in the past for anxiety, which was effective. She also tells us today she has been without her Trulicity for the last 2 months as she was unable to obtain refills from the office. She also missed to endocrinology appointments and agrees to reach out to reschedule these. [facility] Medical History History of CVA (cerebrovascular accident) (~2022) History of myocardial infarction (~2022) Hypertension Hypercholesterolemia Diabetes mellitus Hypothyroid GERD (gastroesophageal reflux disease) Nicotine dependence, cigarettes, uncomplicated Surgical History History of lung biopsy S/P insertion of iliac artery stent History of orthopedic surgery History of cataract surgery History of Family History Father No problems noted. Maternal Grandmother Stomach cancer Paternal Grandmother Lung cancer Social History Housing: House Alcohol intake: never Patient Tobacco Use Status: Current everyday Tobacco user Tobacco use type: Cigarette Cigarette Packs Per Day: 0.5 Cigarettes Per Day: 4 Years Smoked: (onset 18yo, 1/2-3/4ppd x 41yrs, 25PYH) e-Cigarette/Vaping Use: Never Used Second Hand Smoke Exposure: Yes service: No Current occupational status: disabled Cognitive needs: No Hearing needs: No Vision needs: No Questionnaire Thrive Questionnaire Date Thrive assessed: 06/14/25 I am a: Parent/Caregiver What is your living situation today?: I have a steady place to live Within the past 12 months, did the food you bought not last and you didn't have the money to get more?: I choose not to answer this question Within the past 12 months, did you worry whether your food would run out before you got money to buy more?: I choose not to answer this question Do you have trouble paying for medicines?: I choose not to answer this question Do you have trouble getting transportation to medical appointments?: No Do you have trouble paying your heating and electricity bill?: No Do you have trouble taking care of your child, family member or friend?: No Do you have trouble with day-to-day activities such as bathing, preparing meals, shopping, managing finances, etc.?: No Are you currently unemployed and looking for a job?: No Are you interested in more education?: I choose not to answer this question Please select the resources that you would like help with: None THRIVE Score: 0 AUDIT C Alcohol Use Questionnaire (AUDIT-C) 3. How often do you have six or more drinks on one occasion?: Never Total Score: 0 AVERY-7 AMB Questionnaire AVERY-7 Date AVERY - 7 assessed: 06/14/25 Source: Developed by Drs. Teo Fagan, Genesis Kinney, Mihir Taylor and colleagues, with an educational lisa from [employer]. Review of Systems Const Denies body aches, Denies chills, Denies fever(s), Denies headache(s) and Denies poor appetite Eyes Reports no additional complaints ENT Denies dysphagia, Denies dizziness, Denies headache(s) and Denies odynophagia Card Denies chest pain, Denies syncope, Denies edema, Denies irregular heart rhythm, Denies lightheadedness and Denies dyspnea Resp Denies cough and Denies dyspnea GI Denies abdominal pain, Denies constipation, Denies dysphagia, Denies diarrhea, Denies nausea, Denies odynophagia and Denies vomiting Reports no additional complaints Musc Reports no additional complaints and Denies abnormal gait Skin/Breast Reports system reviewed and no additional complaints, except as documented Neuro Denies abnormal gait, Denies dizziness, Denies syncope and Denies headache(s) Psych Reports no additional complaints Physical exam (Primary Care) Vital Signs: Last Vital Signs Pulse 67 06/14/25 11:33 BP 118/60 06/14/25 12:12 Pulse Ox 97 06/14/25 11:33 Oxygen Delivery Method Room Air 06/14/25 11:33 BMI result Body Mass Index 28.4 Tobacco/Smoking Status: Tobacco use Status Tobacco use date assessed 06/14/25 06/14/25 11:38 Patient Tobacco Use Status Current everyday Tobacco 06/14/25 11:38 Tobacco use type Cigarette 06/14/25 11:38 e-Cigarette/Vaping Use Never Used 06/14/25 11:38 Thrive Assessment: Date of Thrive Assessment Date Thrive assessed 06/14/25 06/14/25 11:38 Const General: cooperative, healthy appearing, comfortable and no acute distress Orientation/consciousness: patient oriented x3 HENMT Head: Yes normocephalic Ears: hearing grossly normal bilaterally General nose exam: Normal external nose present Eyes General: appearance normal, both eyes and all related structures Conjunctivae: conjunctivae normal Neck Neck: Yes full ROM and Yes no lymphadenopathy Resp Effort & Inspection: normal respiratory effort Auscultation: clear to auscultation bilaterally, no crackles, no rales, no rhonchi and no wheezes Cardio Rate: regular rate Rhythm: regular rhythm Skin General skin exam: no rashes or lesions noted Neuro General: patient oriented x3 Gait exam (Neuro): Normal gait present Extrem Other: Ingrown toenail without surrounding erythema, tenderness or drainage of the right 4th digit of the foot General: Yes normal to inspection, Yes full ROM and No edema Psych Affect: normal affect Attitude: cooperative Insight: Good insight present (Psych) Judgement: Good judgement present (Psych) Coding Level of Care Code Est Pt Level 4 (06602) Diagnoses Coronary artery disease I25.10 Left upper lobe pulmonary nodule R91.1 History of CVA (cerebrovascular accident) Z86.73 Hypertension I10 Hypercholesterolemia E78.00 Nicotine dependence, cigarettes, uncomplicated F17.210 Uncontrolled diabetes mellitus with hyperglycemia E11.65 Anxiety F41.9 Ingrown toenail L60.0 Assessment & Plan Assessment & Plan (1) Coronary artery disease: Code(s): I25.10 - Atherosclerotic heart disease of [place] coronary artery without angina pectoris Category: Medical Plan: Recently seen by Cardiology echocardiogram was obtained. They recommended continue on dual antiplatelet therapy and managing contributing risk factors. Advised good control of blood pressure, cholesterol and diabetes mellitus. (2) Left upper lobe pulmonary nodule: Comment: 11 mm subpleural nodule in [facility] on 11/2024 LDCT - referral to Pulmonology for further care. Code(s): R91.1 - Solitary pulmonary nodule Category: Medical Plan: Recently completed lung cancer screening program which revealed a 11 mm subpleural nodule in the left upper lobe. Patient was seen by pulmonology biopsy was negative plan to repeat CAT scan in 6 months per pulmonology and she will be seen in August. (3) History of CVA (cerebrovascular accident): Onset Date: ~2022 Code(s): Z86.73 - Personal history of transient ischemic attack (TIA), and cerebral infarction without residual deficits Category: Medical Plan: Patient has a history of CVA making her LDL goal less than 70. Advised good control of blood pressure, cholesterol and diabetes. Currently on dual antiplatelet therapy with clopidogrel and aspirin (4) Hypertension: Code(s): I10 - Essential (primary) hypertension Category: Medical Plan: Continue on current blood pressure medication. Avoid salt intake and encourage healthy diet and regular exercise. (5) Hypercholesterolemia: Code(s): E78.00 - Pure hypercholesterolemia, unspecified Category: Medical Plan: Avoid foods that are high in cholesterol such as red meat, fried foods, eggs and baked goods. Triglyceride goal of less than 150 and LDL goal of less than 70. Continue on atorvastatin 80 mg which was recently increased, reminded about blood work. (6) Nicotine dependence, cigarettes, uncomplicated: Comment: (current smoker - onset 18yo, 1/2-3/4ppd x 41yrs, 25PYH) Code(s): F17.210 - Nicotine dependence, cigarettes, uncomplicated Category: Medical Plan: Smoking cigarettes and the use of tobacco can be harmful. We discussed the importance of stopping and options to aid in smoking cessation. Annual lung cancer screening program completed. States she smokes due to anxiety. (7) Uncontrolled diabetes mellitus with hyperglycemia: Code(s): E11.65 - Type 2 diabetes mellitus with hyperglycemia Category: Medical Plan: Decrease the amount of carbohydrates such as pasta, bread, rice, and potatoes and limit the amount of sweets. Although fruits are generally healthy they should be eaten in moderation as they are still high in sugar. Hemoglobin A1c goal of less than 7%. A1c in the clinic today decreased from 10.4% to 9.7% Patient has been without Trulicty for the last 2 months due to lack of refills and she was unable to reach the office for refills. I sent today refilled for Trulicity and added refills to the prescriptions as well. She is advised to reach out to endocrinology to reschedule her missed appointments. She will continue on Trulicity, Jardiance and metformin at this time. (8) Anxiety: Code(s): F41.9 - Anxiety disorder, unspecified Category: Medical Plan: Plan to start on Sertraline 25mg for anxiety management at this time. She has been on this in the past with good benefit and we will follow up in 3 months for this medication or sooner as needed. (9) Ingrown toenail: Code(s): L60.0 - Ingrowing nail Category: Medical Plan: Patient having an ingrown toenail of the right 4th digit of the foot. It does not appear to be infected at this time and no signs of cellulitis. I did review with her strict protocol given her history of diabetes on when to return to the clinic or walk-in clinic. I did also discuss if she is unable to reach our office she should go to walk-in or ED for this concern. She is referred to Podiatry several months ago however an appointment was not made. She was re-referred to [facility] and provided the phone number to reach out. Plan The patient will be referred to a licensed land surveyor for evaluation of the ingrown toenail, as it may require removal. Due to the patient's diabetes, careful monitoring of the foot is necessary to prevent infection and ensure proper healing. The patient is advised to contact the clinic if there are signs of infection such as redness, drainage, or increased pain. For diabetes management, the patient will continue with Jardiance and metformin, and refills for Trulicity have been provided to improve glycemic control. The patient is encouraged to reschedule the missed endocrinology appointment and complete fasting blood work for cholesterol levels. To address anxiety, sertraline will be prescribed, as it has been effective in the past. The patient is encouraged to reduce smoking and consider medication for anxiety management instead. This note was constructed using voice recognition software. While every effort has been made to ensure accuracy and hematologist oncologist, still areas may have been included sometimes these areas may affect the content or meeting of the given symptoms. Total time spent caring for the patient today was 20 minutes. This includes time spent before the visit reviewing the chart, time spent during the visit, and time spent after the visit and documentation. Patient was informed and verbally consented to the use of an ambient scribe for clinic note documentation during this visit. Orders: Referrals Podiatry Referral E11.65 - Type 2 diabetes mellitus with hyperglycemia, L60.0 - Ingrowing nail Medications: New sertraline 25 mg PO DAILY 30 tabs 2RF Refilled empagliflozin (Jardiance) 10 mg PO DAILY 90 tabs 1RF dulaglutide (Trulicity) 0.75 mg (0.5 mL) subcut QWEEK 2 mL 3RF pantoprazole 40 mg PO DAILY 90 tabs 3RF atorvastatin 80 mg PO DAILY 90 tabs 1RF metformin 850 mg PO DAILY 90 tabs 2RF metoprolol succinate ER 25 mg PO DAILY 90 tabs 2RF losartan 25 mg PO DAILY 90 tabs 2RF levothyroxine 25 mcg PO DAILY 90 tabs 2RF gabapentin 600 mg PO DAILY 30 tabs 2RF clopidogrel 75 mg PO DAILY 90 tabs 2RF aspirin 81 mg PO DAILY 90 tabs 2RF
[2025-06-14 11:33] VITALS: BP 104/58; PULSE 67; O2SAT 97; BMI 28.4
[2025-06-14 12:12] VITALS: BP 118/60
== END 2025-06-14 12:26 | disposition home or self-care (01) ==
LOC: HO.HMCH 11:21
DX: E11.65 Type 2 diabetes mellitus with hyperglycemia (principal); I25.10 Atherosclerotic heart disease of native coronary artery without angina pectoris; R91.1 Solitary pulmonary nodule; Z86.73 Personal history of transient ischemic attack (TIA), and cerebral infarction without residual deficits; I10 Essential (primary) hypertension; E78.00 Pure hypercholesterolemia, unspecified; F17.210 Nicotine dependence, cigarettes, uncomplicated; F41.9 Anxiety disorder, unspecified; L60.0 Ingrowing nail

== ENCOUNTER → 2025-06-14 11:20 | Outpatient (BNVA) | payer OTHER, SELFPAY | DX: I25.10 Atherosclerotic heart disease of native coronary artery without angina pectoris (principal); E11.9 Type 2 diabetes mellitus without complications; I10 Essential (primary) hypertension; E78.00 Pure hypercholesterolemia, unspecified; F41.9 Anxiety disorder, unspecified; F32.A Depression, unspecified; K21.9 Gastro-esophageal reflux disease without esophagitis; E03.9 Hypothyroidism, unspecified; R91.1 Solitary pulmonary nodule; E11.40 Type 2 diabetes mellitus with diabetic neuropathy, unspecified; E11.65 Type 2 diabetes mellitus with hyperglycemia; L60.0 Ingrowing nail; F17.210 Nicotine dependence, cigarettes, uncomplicated; Z86.73 Personal history of transient ischemic attack (TIA), and cerebral infarction without residual deficits; Z95.818 Presence of other cardiac implants and grafts; Z79.899 Other long term (current) drug therapy | CPT/HCPCS: 99212 ==

== ENCOUNTER 2025-06-14 12:31 | Outpatient (AMB) | payer OTHER, SELFPAY ==
--- NOTE | 2025-06-14 12:38 | MHC.OFFVIS ---
Vital Signs 06/14/25 12:39 Height 4 ft 10 in BMI Reason not done Patient refused/unable BP 90/68 Blood Pressure Location Lt brachial Position Sitting Pulse 67 Pulse Source Pulse Oximeter Intake Visit Reasons: r/s 06/13/25 4 mos followup Manager Hair Required: Yes Manager Hair Name: RAYMOND [id number] Allergies fruit Allergy (Severe, Uncoded 06/14/25 11:40) itchy throat Medication List - Last Reconciled 06/14/25 by Abhilash Churchill MD acetaminophen (Tylenol Extra Strength) 500 mg PO Q6H PRN aspirin 81 mg PO DAILY atorvastatin 80 mg PO DAILY blood sugar diagnostic (FreeStyle Lite Strips) As directed; TID blood-glucose meter (FreeStyle Lite Meter kit) As directed clopidogrel 75 mg PO DAILY dulaglutide (Trulicity) 0.75 mg (0.5 mL) subcut QWEEK empagliflozin (Jardiance) 10 mg PO DAILY gabapentin 600 mg PO DAILY insulin glargine 15 units (0.15 mL) subcut QPM Held on 03/14/25. Instructions: no refrigerator lancets (FreeStyle Lancets) As directed; TID levothyroxine 25 mcg PO DAILY losartan 25 mg PO DAILY metformin 850 mg PO DAILY metoprolol succinate ER 25 mg PO DAILY pantoprazole 40 mg PO DAILY [Pen needles 5mm As directed] sertraline 25 mg PO DAILY umeclidinium-vilanterol 62.5-25 mcg/actuation (Anoro Ellipta) 1 inh inhalation DAILY [Wheelchair As directed] HPI Comments Details: Yuridia returns for follow-up regarding coronary artery disease and other issues. It seems that she has seen Cardiology in [place] and has lot of vascular disease. She underwent diagnostic catheterization in 2022. Based on that, mid LAD with 70% stenosis. Proximal circumflex with 80% stenosis and RCA with mid 60-70% stenosis. Nothing significant in left main. Left ventriculogram with EF > 70%. Not entirely clear if she had any interventions but nothing mentioned in the catheterization diagram. Otherwise, she also has lower extremity vascular disease. Again a prior discharge summary describes aortoiliac occlusive disease and bilateral lower extremity critical limb ischemia for which she underwent bilateral iliac stenting. Listed risk factors include diabetes, hypertension, dyslipidemia. There is also mention of cerebrovascular accident in the past. Additionally, it seems she has implantable loop recorder in place due to stroke. Overall, she seems to be doing okay. No clear-cut symptoms like angina or shortness of breath. [facility] Medical History History of CVA (cerebrovascular accident) (~2022) History of myocardial infarction (~2022) Hypertension Hypercholesterolemia Diabetes mellitus Hypothyroid GERD (gastroesophageal reflux disease) Nicotine dependence, cigarettes, uncomplicated Surgical History History of lung biopsy S/P insertion of iliac artery stent History of orthopedic surgery History of cataract surgery History of Family History Father No problems noted. Maternal Grandmother Stomach cancer Paternal Grandmother Lung cancer Social History Housing: House Alcohol intake: never Patient Tobacco Use Status: Current everyday Tobacco user Tobacco use type: Cigarette Cigarette Packs Per Day: 0.5 Cigarettes Per Day: 4 Years Smoked: (onset 18yo, 1/2-3/4ppd x 41yrs, 25PYH) e-Cigarette/Vaping Use: Never Used Second Hand Smoke Exposure: Yes service: No Current occupational status: disabled Cognitive needs: No Hearing needs: No Vision needs: No Review of Systems Const Denies weakness ENT Denies dizziness Card Denies chest pain, Denies chest pain with activity, Denies syncope, Denies rapid heart rate, Denies pedal edema, Denies edema, Denies leg edema, Denies lightheadedness, Denies palpitations, Denies dyspnea, Denies dyspnea on exertion and Denies orthopnea Resp Denies cough, Denies dyspnea and Denies dyspnea on exertion GI Denies hematochezia and Denies change in stool character Musc Denies abnormal gait, Denies muscle cramps, Denies muscle weakness, Denies numbness, Denies radiating pain into limb and Denies tingling Neuro Denies abnormal gait, Denies dizziness, Denies syncope, Denies numbness, Denies tingling and Denies weakness Endo Denies palpitations Physical Exam Vital Signs: Last Vital Signs Pulse 67 06/14/25 12:39 BP 90/68 06/14/25 12:39 Const General: comfortable and no acute distress Orientation/consciousness: patient oriented x3 HEENT Other: Unremarkable Head: Yes normal to inspection Neck Neck: Yes normal visual inspection Chest Chest palpation & inspection: normal inspection of the chest Resp Auscultation: clear to auscultation bilaterally Cardio Palpation: normal PMI Heart sounds: S1 normal heart sound present, S2 normal heart sound present, no gallops, no murmurs and no rubs GI Palpation (GI): Soft to palpation Back/Spine/Pelvis Other: unremarkable Skin General skin exam: no rashes or lesions noted Neuro General: patient oriented x3 Extrem General: Yes normal to inspection Psych Mental Status: mental status grossly normal Assessment & Plan Assessment & Plan (1) Coronary artery disease: Code(s): I25.10 - Atherosclerotic heart disease of [place] coronary artery without angina pectoris Category: Medical (2) Diabetes mellitus: Comment: (IDDM2) Code(s): E11.9 - Type 2 diabetes mellitus without complications Category: Medical (3) Hypertension: Code(s): I10 - Essential (primary) hypertension Category: Medical (4) Hypercholesterolemia: Code(s): E78.00 - Pure hypercholesterolemia, unspecified Category: Medical (5) Implantable loop recorder present: Code(s): Z95.818 - Presence of other cardiac implants and grafts Category: Medical Plan Cardiac catheterization 2022-mid LAD with 70% stenosis. Proximal circumflex with 80% stenosis and RCA with mid 60-70% stenosis. Nothing significant left main. Lower extremity vascular disease per documentation with bilateral iliac stenting. In the recent echocardiogram, LVEF is 45%. Mild global hypokinesis. Overall, extensive cardiovascular risk factors with established coronary disease, mild cardiomyopathy but no active symptoms. With regard to medications, she seems to be on dual antiplatelet medications and that can be continued. Continue statins and she states that the dose was also increased recently. Follow-up lipids in due course. Optimal management of diabetes. However, not well controlled as hemoglobin A1c is more than 10%. Smoking cessation. Overall, very high risk of cardiovascular complications including myocardial infarction, stroke and . Implantable loop recorder can be followed remotely. Follow up 6 months. In the interim, they will call with any concerns. Discussed using body straightener. Coding Level of Care Code Est Pt Level 4 (27090) Complex EM visit Add On G2211 Diagnoses Coronary artery disease I25.10 Diabetes mellitus E11.9 Hypertension I10 Hypercholesterolemia E78.00 Implantable loop recorder present Z95.817
[2025-06-14 12:39] VITALS: BP 90/68; PULSE 67
== END 2025-06-14 13:05 | disposition home or self-care (01) ==
LOC: HO.HCS 12:33
PROVIDERS: Visit Provider Internal Medicine
DX: I25.10 Atherosclerotic heart disease of native coronary artery without angina pectoris (principal); E11.9 Type 2 diabetes mellitus without complications; I10 Essential (primary) hypertension; E78.00 Pure hypercholesterolemia, unspecified; Z95.818 Presence of other cardiac implants and grafts
CPT/HCPCS: 99214

== ENCOUNTER → 2025-06-19 23:59 | Outpatient (BNV) | payer OTHER, SELFPAY ==
--- NOTE | 2025-07-03 13:35 | A.OFFVIS_ITS ---
Intake Visit Reasons: Remote ILR check- [employer] Allergies fruit Allergy (Severe, Uncoded 06/14/25 11:40) itchy throat PFSH Medical History History of CVA (cerebrovascular accident) (~2022) History of myocardial infarction (~2022) Hypertension Hypercholesterolemia Diabetes mellitus Hypothyroid GERD (gastroesophageal reflux disease) Nicotine dependence, cigarettes, uncomplicated Surgical History History of lung biopsy S/P insertion of iliac artery stent History of orthopedic surgery History of cataract surgery History of Family History Father No problems noted. Maternal Grandmother Stomach cancer Paternal Grandmother Lung cancer Social History Housing: House Alcohol intake: never Patient Tobacco Use Status: Current everyday Tobacco user Tobacco use type: Cigarette Cigarette Packs Per Day: 0.5 Cigarettes Per Day: 4 Years Smoked: (onset 18yo, 1/2-3/4ppd x 41yrs, 25PYH) e-Cigarette/Vaping Use: Never Used Second Hand Smoke Exposure: Yes service: No Current occupational status: disabled Cognitive needs: No Hearing needs: No Vision needs: No Office Procedures Cardiac Device Check Cardiac Device Check Details: Date of service 06/19/2025; in the current monitoring period, there is no eviden ce of atrial fibrillation. [id number] Cardiac Interrogation, subcut cardiac rhythm monitor Procedure code (CPT) selection complete Assessment & Plan Assessment & Plan (1) Implantable loop recorder present: Code(s): Z95.818 - Presence of other cardiac implants and grafts Category: Medical (2) History of CVA (cerebrovascular accident): Onset Date: ~2022 Code(s): Z86.73 - Personal history of transient ischemic attack (TIA), and cerebral infarction without residual deficits Category: Medical Plan x Coding Level of Care Code Procedure Only Diagnoses Implantable loop recorder present Z95.818 History of CVA (cerebrovascular accident) Z86.73 CPT Codes Cardiac Device Check - Cardiac Device 16: [id number] Cardiac Interrogation, subcut cardiac rhythm monitor ([id number])
== END ==
PROVIDERS: Visit Provider Internal Medicine
DX: I63.9 Cerebral infarction, unspecified (principal); Z95.818 Presence of other cardiac implants and grafts
CPT/HCPCS: 93298

== ENCOUNTER → 2025-07-19 23:59 | Outpatient (BNV) | payer OTHER, SELFPAY ==
--- NOTE | 2025-07-24 14:19 | MHC.OFFVIS ---
Intake Visit Reasons: Remote ILR ([employer]) Allergies fruit Allergy (Severe, Uncoded 06/14/25 11:40) itchy throat PFSH Medical History History of CVA (cerebrovascular accident) (~2022) History of myocardial infarction (~2022) Hypertension Hypercholesterolemia Diabetes mellitus Hypothyroid GERD (gastroesophageal reflux disease) Nicotine dependence, cigarettes, uncomplicated Surgical History History of lung biopsy S/P insertion of iliac artery stent History of orthopedic surgery History of cataract surgery History of Family History Father No problems noted. Maternal Grandmother Stomach cancer Paternal Grandmother Lung cancer Social History Housing: House Alcohol intake: never Patient Tobacco Use Status: Current everyday Tobacco user Tobacco use type: Cigarette Cigarette Packs Per Day: 0.5 Cigarettes Per Day: 4 Years Smoked: (onset 18yo, 1/2-3/4ppd x 41yrs, 25PYH) e-Cigarette/Vaping Use: Never Used Second Hand Smoke Exposure: Yes service: No Current occupational status: disabled Cognitive needs: No Hearing needs: No Vision needs: No Office Procedures Cardiac Device Check Cardiac Device Check Details: Date of service 07/19/2025; in the current monitoring period, there is no evidence of atrial fibrillation. [id number] Cardiac Interrogation, subcut cardiac rhythm monitor Procedure code (CPT) selection complete Assessment & Plan Assessment & Plan (1) Implantable loop recorder present: Code(s): Z95.818 - Presence of other cardiac implants and grafts Category: Medical (2) History of CVA (cerebrovascular accident): Onset Date: ~2022 Code(s): Z86.73 - Personal history of transient ischemic attack (TIA), and cerebral infarction without residual deficits Category: Medical Plan x Coding Level of Care Code Procedure Only Diagnoses Implantable loop recorder present Z95.818 History of CVA (cerebrovascular accident) Z86.73 CPT Codes Cardiac Device Check - Cardiac Device 16: [id number] Cardiac Interrogation, subcut cardiac rhythm monitor ([id number])
== END ==
PROVIDERS: Visit Provider Internal Medicine
DX: Z45.09 Encounter for adjustment and management of other cardiac device (principal); Z86.73 Personal history of transient ischemic attack (TIA), and cerebral infarction without residual deficits
CPT/HCPCS: 93298

== ENCOUNTER 2025-07-20 09:55 | Outpatient (REF) | payer OTHER, SELFPAY ==
[2025-07-20 11:24] LABS: Appearance Urine Cloudy; Glucose Urine UA 500 mg/dL (Negative); PH 5.5 (5.0-9.0); Specific Gravity - Urine 1.020 (1.005-1.025); UMIC TRIGGER UACC YES
[2025-07-20 11:34] LABS: Anion Gap 14 (12-20); Blood Urea Nitrogen 19 mg/dL (9-16); Calcium 9.2 mg/dL (8.4-10.2); Carbon Dioxide 27 mmol/L (22-29); Chloride 105 mmol/L (96-108); Cholesterol 174 mg/dL (<200); Estimated Glomerular Filt Rate > 60; HDL Cholesterol 37 mg/dL (>40); Potassium 4.8 mmol/L (3.3-5.1); Sodium 141 mmol/L (135-145); Triglycerides 186 mg/dL (<150)
[2025-07-20 11:38] LABS: UACC Culture Trigger YES
[2025-07-20 12:06] LABS: Microalbum/Creatinine Ratio Ur 120.3 ug/mg cr (<30)
== END 2025-07-20 09:56 | disposition home or self-care (01) ==
LOC: HO.LAB 09:55
DX: E11.9 Type 2 diabetes mellitus without complications (principal); E78.00 Pure hypercholesterolemia, unspecified; R91.1 Solitary pulmonary nodule
CPT/HCPCS: 36415; 80048; 80061; 81001; 82043; 82570; 87086

== ENCOUNTER 2025-08-08 09:54 | Outpatient (AMB) | payer OTHER, SELFPAY ==
--- NOTE | 2025-08-08 10:16 | A.OFFVIS_ITS ---
Vital Signs 08/08/25 10:17 Height 4 ft 10 in Weight 133 lb BMI 27.8 BP 98/58 L Blood Pressure Location Lt brachial Position Sitting Pulse 83 Pulse Source Pulse Oximeter Pulse Oximetry (%) 98 Oxygen Delivery Method Room Air Intake Visit Reasons: Pulmonary Nodule English Composition Teacher Required: Yes English Composition Teacher Name: Caro Pena C.L.M Allergies fruit Allergy (Severe, Uncoded 06/14/25 11:40) itchy throat HPI HPI Pulmonary Nodule: Details: 59-year-old lady, active 30+ pack-year smoker referred from lung cancer screening program for new finding of 11 mm left upper lobe nodule. Patient does have multiple grandparents with history of lung cancer. After the last office visit she had negative biopsy. She has not completed follow-up CT scan of pulmonary function testing. She is also intermittently using her Anoro. [facility] Medical History History of CVA (cerebrovascular accident) (~2022) History of myocardial infarction (~2022) Hypertension Hypercholesterolemia Diabetes mellitus Hypothyroid GERD (gastroesophageal reflux disease) Nicotine dependence, cigarettes, uncomplicated Surgical History History of lung biopsy S/P insertion of iliac artery stent History of orthopedic surgery History of cataract surgery History of Family History Father No problems noted. Maternal Grandmother Stomach cancer Paternal Grandmother Lung cancer Social History Housing: House Alcohol intake: never Patient Tobacco Use Status: Current everyday Tobacco user Tobacco use type: Cigarette Cigarette Packs Per Day: 0.5 Cigarettes Per Day: 4 Years Smoked: (onset 18yo, 1/2-3/4ppd x 41yrs, 25PYH) e-Cigarette/Vaping Use: Never Used Second Hand Smoke Exposure: Yes service: No Current occupational status: disabled Cognitive needs: No Hearing needs: No Vision needs: No Review of Systems Const Denies daytime sleepiness, Denies excessive sweating, Denies fatigue, Denies fever(s), Denies lethargy, Denies malaise, Denies night sweats, Denies snoring and Denies weight loss Eyes Denies blurry vision and Denies itchy eyes ENT Denies nasal congestion, Denies post nasal drip, Denies sinus pain, Denies sinus pressure and Denies other ( Thrush) Card Denies chest pain, Denies pedal edema, Denies dyspnea, Denies orthopnea and Denies paroxysmal nocturnal dyspnea Resp Denies cough, Denies hemoptysis, Denies excessive phlegm production, Denies dyspnea, Denies snoring and Denies wheezing GI Denies abdominal pain and Denies heartburn Musc Denies myalgias, Denies arthralgias and Denies joint swelling Skin/Breast Denies rash Neuro Denies memory loss and Denies seizure-like activity Psych Denies abnormal sleep pattern, Denies anxiety and Denies memory loss Endo Denies excessive sweating, Denies fatigue and Denies heat intolerance Nathan/Lymph Denies easy bruising Aller/Immun Denies itchy eyes, Denies seasonal rhinorrhea and Denies wheezing Physical Exam Vital Signs: Last Vital Signs Pulse 83 08/08/25 10:17 BP 98/58 L 08/08/25 10:17 Pulse Ox 98 08/08/25 10:17 Oxygen Delivery Method Room Air 08/08/25 10:17 BMI result Body Mass Index 27.8 Const General: no acute distress and alert Nutritional Appearance: not obese Orientation/consciousness: Other orientation findings ( oriented) HEENT Head: Yes atraumatic Eyes General: appearance normal, both eyes and all related structures Sclerae: sclerae normal EOM: EOMs intact bilaterally Neck Neck: Yes supple Lymphatic: no lymphadenopathy noted Resp Effort & Inspection: normal respiratory effort and no use of accessory muscles Auscultation: clear to auscultation bilaterally Cardio Rate: regular rate Rhythm: regular rhythm Heart sounds: no gallops, no murmurs and no rubs Skin General skin exam: other ( warm) Extrem General: No clubbing, No cyanosis and No edema Assessment & Plan Assessment & Plan (1) Pulmonary emphysema: Code(s): J43.9 - Emphysema, unspecified Category: Medical Plan: Pulmonary function test is still pending. Patient has been advised to use her Anoro more consistently. (2) Left upper lobe pulmonary nodule: Comment: 11 mm subpleural nodule in [facility] on 11/2024 LDCT - referral to Pulmonology for further care. Code(s): R91.1 - Solitary pulmonary nodule Category: Medical Plan: Previously negative biopsy. Follow-up CT chest is pending, patient previously was unable to schedule. Coding Level of Care Code Est Pt Level 4 (08599) Diagnoses Pulmonary emphysema J43.9 Left upper lobe pulmonary nodule R91.1
[2025-08-08 10:17] VITALS: BP 98/58; PULSE 83; O2SAT 98; BMI 27.8
== END 2025-08-08 10:38 | disposition home or self-care (01) ==
LOC: HO.HPS 09:55
PROVIDERS: Visit Provider Internal Medicine Pulmonary Disease
DX: J43.9 Emphysema, unspecified (principal); R91.1 Solitary pulmonary nodule
CPT/HCPCS: 99214

== ENCOUNTER → 2025-08-08 09:54 | Outpatient (BNVA) | payer OTHER, SELFPAY | PROVIDERS: Visit Provider Internal Medicine Pulmonary Disease | DX: R91.1 Solitary pulmonary nodule (principal); J43.9 Emphysema, unspecified | CPT/HCPCS: 99212 ==

== ENCOUNTER → 2025-08-18 23:59 | Outpatient (BNV) | payer OTHER, SELFPAY ==
--- NOTE | 2025-08-28 09:19 | A.OFFVIS_ITS ---
Intake Visit Reasons: Remote ILR check- [employer] Allergies fruit Allergy (Severe, Uncoded 06/14/25 11:40) itchy throat PFSH Medical History History of CVA (cerebrovascular accident) (~2022) History of myocardial infarction (~2022) Hypertension Hypercholesterolemia Diabetes mellitus Hypothyroid GERD (gastroesophageal reflux disease) Nicotine dependence, cigarettes, uncomplicated Surgical History History of lung biopsy S/P insertion of iliac artery stent History of orthopedic surgery History of cataract surgery History of Family History Father No problems noted. Maternal Grandmother Stomach cancer Paternal Grandmother Lung cancer Social History Housing: House Alcohol intake: never Patient Tobacco Use Status: Current everyday Tobacco user Tobacco use type: Cigarette Cigarette Packs Per Day: 0.5 Cigarettes Per Day: 4 Years Smoked: (onset 18yo, 1/2-3/4ppd x 41yrs, 25PYH) e-Cigarette/Vaping Use: Never Used Second Hand Smoke Exposure: Yes service: No Current occupational status: disabled Cognitive needs: No Hearing needs: No Vision needs: No Office Procedures Cardiac Device Check Cardiac Device Check Details: Date of service 08/18/2025; in the current monitoring period, there is no eviden ce of atrial fibrillation. [id number] Cardiac Interrogation, subcut cardiac rhythm monitor Procedure code (CPT) selection complete Assessment & Plan Assessment & Plan (1) Implantable loop recorder present: Code(s): Z95.818 - Presence of other cardiac implants and grafts Category: Medical (2) History of CVA (cerebrovascular accident): Onset Date: ~2022 Code(s): Z86.73 - Personal history of transient ischemic attack (TIA), and cerebral infarction without residual deficits Category: Medical Plan x Coding Level of Care Code Procedure Only Diagnoses Implantable loop recorder present Z95.818 History of CVA (cerebrovascular accident) Z86.73 CPT Codes Cardiac Device Check - Cardiac Device 16: [id number] Cardiac Interrogation, subcut cardiac rhythm monitor ([id number])
== END ==
PROVIDERS: Visit Provider Internal Medicine
DX: I63.9 Cerebral infarction, unspecified (principal); Z95.818 Presence of other cardiac implants and grafts
CPT/HCPCS: 93298

== ENCOUNTER 2025-08-22 16:29 | Outpatient (REF) | payer OTHER, SELFPAY ==
--- NOTE | ~2025-08-22 | CT_ITS ---
CLINICAL HISTORY: R91.1 - Solitary pulmonary nodule CT chest without IV contrast. COMPARISON: CT chest dated 11/19/24 at 11:18 EST FINDINGS: Left thyroid lobe nodule measuring 1.4 cm. No supraclavicular or axillary lymphadenopathy. Cardiac monitoring device present within the subcutaneous tissues along the left chest wall. Ascending aorta and main pulmonary artery are normal in caliber. Aortic annular calcifications. Coronary artery calcifications present within the LAD and circumflex. No pericardial effusion. Distal esophageal wall thickening. No mediastinal lymphadenopathy. No pleural effusion. No consolidation. Trachea and central airways are clear. No significant bronchial wall thickening. Small amount of mucoid impaction present within the right lower lobe. Small calcified granuloma in the left upper lobe. Left upper lobe subpleural 1.0 x 0.9 by 0.9 cm pulmonary nodule (series 5, image 30), stable. Right upper lobe 2 mm pulmonary nodule (series 4, image 27), stable. Right upper lobe subpleural 2 mm pulmonary nodule (series 4, image 44), stable. No new or growing pulmonary nodule. Visualized portions of the upper abdomen are unremarkable. Small marginal osteophytes along the midthoracic spine. No acute fracture or suspicious bone lesion. IMPRESSION: 1. Stable dominant left upper lobe pulmonary nodule measuring 1.0 cm. Recommend additional follow-up imaging in 12 months. Additional smaller pulmonary micronodule in the right upper lobe are also stable. No new or growing pulmonary nodule. 2. Left thyroid lobe nodule measuring 1.4 cm. Recommend comparison with recent thyroid ultrasound if not already performed. 3. Coronary artery atherosclerosis. 4. Distal esophageal wall thickening can be associated with gastroesophageal reflux disease and esophagitis. This document has been electronically signed by: Jonatan Vidal MD on 08/24/2025 13:26:44
== END 2025-08-22 16:30 | disposition home or self-care (01) ==
LOC: HO.CT 16:29
PROVIDERS: Visit Provider Internal Medicine Pulmonary Disease
DX: R91.1 Solitary pulmonary nodule (principal)
CPT/HCPCS: 71250

== ENCOUNTER → 2025-08-22 16:32 | Outpatient (BNV) | payer OTHER, SELFPAY | PROVIDERS: Visit Provider Radiology Diagnostic Radiology | DX: R91.8 Other nonspecific abnormal finding of lung field (principal); E04.1 Nontoxic single thyroid nodule; I25.10 Atherosclerotic heart disease of native coronary artery without angina pectoris; K22.89 Other specified disease of esophagus | CPT/HCPCS: 71250 ==

== ENCOUNTER 2025-09-02 10:24 | Outpatient (AMB) | payer OTHER, SELFPAY ==
--- NOTE | 2025-09-02 10:27 | A.OFFVIS_ITS ---
Vital Signs 09/02/25 10:32 Height 4 ft 10 in Weight 132 lb 15.02 oz BMI 27.8 BP 104/54 L Blood Pressure Location Lt brachial Position Sitting Pulse 71 Pulse Source Pulse Oximeter Pulse Oximetry (%) 98 Oxygen Delivery Method Room Air Intake Visit Reasons: T2DM Intake Note: New patient internally referred by PCP for T2DM. Last Diabetic Eye exam: Within the year, [facility] Last Podiatry Visit: Does not see a Electronic Device Monitor, requesting referral. Random Glucose: 332 mg/dl Hgb A1C: 10.4% 09/02/2025 Restaurant Host Required: Yes Restaurant Host Language: Coater Operator Insulation Board Services: Restaurant Host Present Restaurant Host Name: Kinglsey [id number] Information Interpreted: non-clinical & clinical Accompanied by: Daughter Allergies fruit Allergy (Severe, Uncoded 09/02/25 10:33) itchy throat Medication List - Last Reconciled 09/02/25 by JOEY Gaspar acetaminophen (Tylenol Extra Strength) 500 mg PO Q6H PRN aspirin 81 mg PO DAILY atorvastatin 80 mg PO DAILY blood sugar diagnostic (FreeStyle Lite Strips) As directed; TID blood-glucose meter (FreeStyle Lite Meter kit) As directed blood-glucose sensor (FreeStyle Javi 3 Plus Sensor device) Apply 1 new sensor every 15 days as directed to monitor blood glucose continuously. blood-glucose,seed analysis laboratory assistant,cont (FreeStyle Javi 3 [place]) Use daily to monitor blood glucose levels continuously. cefuroxime axetil 250 mg PO BID 7 days clopidogrel 75 mg PO DAILY dextrose (TRUEplus Glucose) 15 grams (32 mL) PO Q15M PRN dulaglutide (Trulicity) 0.75 mg (0.5 mL) subcut QWEEK empagliflozin (Jardiance) 25 mg PO QAM ezetimibe (Zetia) 10 mg PO DAILY gabapentin 600 mg PO DAILY insulin degludec (Tresiba U-100 Insulin) 10 units (0.1 mL) subcut BEDTIME lancets (FreeStyle Lancets) As directed; TID levothyroxine 25 mcg PO DAILY losartan 25 mg PO DAILY metformin 850 mg PO DAILY metoprolol succinate ER 25 mg PO DAILY pantoprazole 40 mg PO DAILY [Pen needles 5mm As directed] sertraline 25 mg PO DAILY umeclidinium-vilanterol 62.5-25 mcg/actuation (Anoro Ellipta) 1 inh inhalation DAILY [Wheelchair As directed] HPI Comments Details: This is a 60-year-old female with a past medical history of type 2 diabetes, emphysema, coronary artery disease, CVA, hypertension, hyperlipidemia, hypothyroidism and GERD presenting for an initial consult for diabetic management. Algerian video paper production engineer used. Daughter also present. She moved from [place] 1 year ago. She was diagnosed with type 2 diabetes 27 years ago. She has a family history of Type II diabetes in her mother, father and many other family members. No known history of type 1 diabetes. POC 332. Hemoglobin A1c today 09/02/2025: 10.4% She does not have a glucometer with her today. She checks her blood sugar twice daily. After breakfast and dinner blood sugars are usually 200-350. Sometimes they are close to 400. One time blood sugar was 500. She felt tired and had blurry vision. Current regimen: Metformin 850 mg daily, insulin glargine 15 units nightly (not taking this since starting Trulicity), Jardiance 10 mg daily, Trulicity 0.75 mg weekly (patient reports she started it 2 or 3 months ago) Hyperlipidemia is treated with Zetia and atorvastatin Hypertension is treated with losartan and metoprolol Diet: Breakfast-coffee with milk and sugar, bread with cheese or ham Lunch- does not eat lunch usually Drinks soda, more coffees during the day Dinner-rice, chicken Drinks 2 glasses of soda daily Smokes 1 pack of cigarettes every 3 days. No alcohol. Hypoglycemia symptoms: Denies episodes Hyperglycemia symptoms: blurry vision Microvascular complications: Nephropathy: Microalbuminuria), neuropathy in her feet Macrovascular complications: CVA 2022, MD 2022 ROS: Constitutional: No unexplained weight loss, fever, chills or night sweats Eyes: No vision changes, blurry vision, double vision Respiratory: No shortness of breath Cardiovascular: No chest pain Gastrointestinal: No anorexia, nausea, vomiting or diarrhea. No abdominal pain Genitourinary: No dysuria, hematuria, urinary frequency. Neurologic: No headache, dizziness, syncope, endorses burning and tingling in her feet Skin: No rash or wounds Endocrine: No cold or heat intolerance. No polyuria or polydipsia. Physical exam: Constitutional: Alert, in no distress. Neck: Supple, Full range of motion. No lymphadenopathy. No palpable thyroid masses. Respiratory: Clear to auscultation. Cardiovascular: S1 S2 regular. No murmurs. Feet: Warm and well perfused, no edema, intact DP pulses, no rashes, discoloration, wounds or ulcers Psychiatric: Normal mood and affect [facility] Medical History (Updated 09/02/25 @ 12:25 by JOEY Gaspar) Microalbuminuria due to type 2 diabetes mellitus History of CVA (cerebrovascular accident) (~2022) History of myocardial infarction (~2022) Hypertension Hypercholesterolemia Diabetes mellitus Hypothyroid GERD (gastroesophageal reflux disease) Nicotine dependence, cigarettes, uncomplicated Surgical History History of lung biopsy S/P insertion of iliac artery stent History of orthopedic surgery History of cataract surgery History of Family History Father No problems noted. Maternal Grandmother Stomach cancer Paternal Grandmother Lung cancer Social History Housing: House Alcohol intake: never Patient Tobacco Use Status: Current everyday Tobacco user Tobacco use type: Cigarette Cigarette Packs Per Day: 0.5 Cigarettes Per Day: 4 Years Smoked: (onset 18yo, 1/2-3/4ppd x 41yrs, 25PYH) e-Cigarette/Vaping Use: Never Used Second Hand Smoke Exposure: Yes service: No Current occupational status: disabled Cognitive needs: No Hearing needs: No Vision needs: No Physical Exam Vital Signs: Last Vital Signs Pulse 71 09/02/25 10:32 BP 104/54 L 09/02/25 10:32 Pulse Ox 98 09/02/25 10:32 Oxygen Delivery Method Room Air 09/02/25 10:32 BMI result Body Mass Index 27.8 Results AMB Hemoglobin A1c AMB Hemoglobin A1c 10.4 % Last Edit by ANTHONY Genao on 09/02/25 10:49 Results Reviewed Results Reviewed: Laboratory Last Values Glucose (Clinic) 332 mg/dL (60-115) H 09/02/25 10:38 Hgb A1c (Clinic) 10.4 % (4.0-6.0) H 09/02/25 10:42 Laboratory Tests 01/05/25 03/14/25 07/20/25 08:15 11:07 10:08 Creatinine Estimated GFR Hgb A1c (Clinic) 10.4 H AST 33 H ALT 22 Triglycerides Cholesterol LDL Cholesterol, Calc HDL Cholesterol TSH 1.88 Urine Creatinine 142.87 Urine Microalbumin 172.0 Microalb/Creat Ratio 120.3 H 07/20/25 10:13 Creatinine 0.72 Estimated GFR > 60 Hgb A1c (Clinic) AST ALT Triglycerides 186 H Cholesterol 174 LDL Cholesterol, Calc 100 H HDL Cholesterol 37 L TSH Urine Creatinine Urine Microalbumin Microalb/Creat Ratio Assessment & Plan Assessment & Plan (1) Uncontrolled diabetes mellitus with hyperglycemia: Code(s): E11.65 - Type 2 diabetes mellitus with hyperglycemia Category: Medical Qualifiers: Diabetes mellitus type: type 2 Qualified Code(s): E11.65 - Type 2 diabetes mellitus with hyperglycemia (2) Hypertension: Code(s): I10 - Essential (primary) hypertension Category: Medical Qualifiers: Hypertension type: primary hypertension Qualified Code(s): I10 - Essential (primary) hypertension (3) Hypercholesterolemia: Code(s): E78.00 - Pure hypercholesterolemia, unspecified Category: Medical (4) Microalbuminuria due to type 2 diabetes mellitus: Code(s): E11.29 - Type 2 diabetes mellitus with other diabetic kidney complication; R80.9 - Proteinuria, unspecified Category: Medical Plan In summary this is a 60-year-old female with uncontrolled type 2 diabetes with micro and macrovascular complications. Discussed pathophysiology of Type II Diabetes Mellitus with the patient in detail.? I explained the intermediate project manager risks and complications associated with uncontrolled diabetes including nephropathy, neuropathy, peripheral vascular disease, retinopathy, increased risk of heart disease and stroke.? Discussed lifestyle modification with the patient. Diabetic diet reviewed. Refer to dietitian and early childhood educator aide. Reviewed treatment of hypoglycemia. Written instructions provided to the patient. Dextrose gel sent to pharmacy. Reviewed treatment of hypoglycemia and when to seek emergency care. If using fingerstick glucometer she should be checking blood sugar 4 times daily. I placed a sample Javi 3+ on the patient today. She left with the duc on her phone in the warm up period. Ordered Javi 3+ continuous glucose monitoring system for the patient. Advised patient that high doses of vitamin-C can interfere with a continuous glucose monitor. Advised to confirm hypo and hyperglycemia with fingersticks. Increase Jardiance to 25 mg daily. Monitor for urinary tract infection symptoms and yeast infection symptoms. Start Tresiba 10 units nightly. Continue metformin 850 mg daily. Continue Trulicity 0.75 mg daily. Plan to titrate dose at next visit. Follow up in 2 weeks for re-evaluation of type 2 diabetes. Orders: Orders AMB Hemoglobin A1c Today E11.9 - Type 2 diabetes mellitus without complications Referrals Filing Writer Nutrition Referral E11.65 - Type 2 diabetes mellitus with hyperglycemia Diabetes Education Referral E11.65 - Type 2 diabetes mellitus with hyperglycemia Medications: New blood-glucose,seed analysis laboratory assistant,cont (FreeStyle Javi 3 [place]) Use daily to monitor blood glucose levels continuously. 1 ea 0RF blood-glucose sensor (FreeStyle Javi 3 Plus Sensor device) Apply 1 new sensor every 15 days as directed to monitor blood glucose continuously. 2 ea 11RF dextrose (TRUEplus Glucose) until symptoms of low blood sugar are controlled 15 grams (32 mL) PO Q15M PRN 256 mL 3RF hypoglycemia empagliflozin (Jardiance) 25 mg PO QAM 90 tabs 1RF insulin degludec (Tresiba U-100 Insulin) 10 units (0.1 mL) subcut BEDTIME 10 mL 5RF Discontinued empagliflozin (Jardiance) Discontinued Reason: Doctor's Order 10 mg PO DAILY 90 tabs 1RF Patient Instructions: Increase Jardiance to 25 mg once daily. Start Tresiba 10 units nightly. Continue Metformin 850 mg daily Continue Trulicity 0.75 mg daily. We will plan to increase this at your next visit. If you experience low blood sugar (under 70), treat this by eating a chewable fruit candy like skittles or jelly beans (about 8 pieces), 4 ounces (1/2 cup) of fruit juice (not diet), 1 tablespoon of honey or 4 glucose tablets or 1 pack of dextrose gel. If your blood sugar is under 50, take double the amount of one of the above. Recheck your blood sugar in 15 minutes. I ordered the javi 3 plus continuous glucose monitoring system for you. [email or web address] Aumente la dosis de Jardiance a 25 mg meghna vez al d?a. Comience con Tresiba 10 unidades por la noche. Contin?e con Metformina 850 mg al d?a. Contin?e con Trulicity 0.75 mg al d?a. Planificaremos aumentar la dosis en toribio pr?xima visita. Si experimenta hipoglucemia (menos de 70 mg/dL), trate esto comiendo meghna gomita de fruta masticable yves Skittles o Jelly Beans (aproximadamente 8 piezas), 120 ml (1/2 taza) de jugo de fruta (no diet?nancy), 1 cucharada de miel o 4 tabletas de glucosa o 1 sobre de gel de dextrosa. Si toribio nivel de glucosa en duane es inferior a 50 mg/dL, tome el doble de la cantidad de cualquiera de las opciones anteriores. Vuelva a medir toribio nivel de glucosa en duane en 15 minutos. Le solicit? el sistema de monitoreo continuo de glucosa Javi 3 Plus. [email or web address] Coding Level of Care Code New Pt Level 5 (00836) Complex EM visit Add On G2211 Diagnoses Uncontrolled type 2 diabetes mellitus with hyperglycemia E11.65 Diabetes mellitus type: type 2 Primary hypertension I10 Hypertension type: primary hypertension Hypercholesterolemia E78.00 Microalbuminuria due to type 2 diabetes mellitus E11.29; R80.9 Time Spent (min) 70 Comment Direct patient care, chart review, completing documentation
[2025-09-02 10:32] VITALS: BP 104/54; PULSE 71; O2SAT 98; BMI 27.8
[2025-09-02 10:44] LABS: Glucose, Whole Blood 332 mg/dL (60-115)
== END 2025-09-02 11:37 | disposition home or self-care (01) ==
PROVIDERS: Visit Provider Physician Assistant Medical
DX: E11.65 Type 2 diabetes mellitus with hyperglycemia (principal); I10 Essential (primary) hypertension; E78.00 Pure hypercholesterolemia, unspecified; E11.29 Type 2 diabetes mellitus with other diabetic kidney complication; R80.9 Proteinuria, unspecified

== ENCOUNTER → 2025-09-02 10:24 | Outpatient (BNVA) | payer OTHER, SELFPAY | PROVIDERS: Visit Provider Physician Assistant Medical | DX: E11.65 Type 2 diabetes mellitus with hyperglycemia (principal); E11.29 Type 2 diabetes mellitus with other diabetic kidney complication; I10 Essential (primary) hypertension; E78.00 Pure hypercholesterolemia, unspecified; R80.9 Proteinuria, unspecified; Z79.85 Long-term (current) use of injectable non-insulin antidiabetic drugs; Z79.4 Long term (current) use of insulin | CPT/HCPCS: 82947; 83036; 99202 ==

== ENCOUNTER 2025-09-20 14:44 | Outpatient (AMB) | payer OTHER, SELFPAY ==
[2025-09-20 14:46] VITALS: BP 108/46; PULSE 70; O2SAT 99; BMI 28.2
--- NOTE | 2025-09-20 14:46 | MHC.OFFVIS ---
Vital Signs 09/20/25 14:46 Height 4 ft 10 in Weight 134 lb 14.766 oz BMI 28.2 BP 108/46 L Blood Pressure Location Lt brachial Position Sitting Pulse 70 Pulse Source Pulse Oximeter Pulse Oximetry (%) 99 Oxygen Delivery Method Room Air Intake Visit Reasons: T2DM Intake Note: Patient present today for T2DM. Last Diabetic Eye exam: Within the year, [facility] Last Podiatry Visit: Does not see a Semi Conductor Assembler, requesting referral. Random Glucose: 239 mg/dl Hgb A1C: 10.4% 09/02/2025 Senior Product Marketing Manager Required: Yes Senior Product Marketing Manager Language: Direct Service Professional Services: Senior Product Marketing Manager Present Senior Product Marketing Manager Name: [place] [id number] Information Interpreted: non-clinical & clinical Accompanied by: Daughter Allergies fruit Allergy (Severe, Uncoded 09/20/25 14:50) itchy throat HPI Comments Details: This is a 60-year-old female with a past medical history of type 2 diabetes, emphysema, coronary artery disease, CVA, hypertension, hyperlipidemia, hypothyroidism and GERD presenting for diabetic management. Swazi video language interpreter: Joselo [id number] She moved from [place] 1 year ago. She was diagnosed with type 2 diabetes 27 years ago. She has a family history of Type II diabetes in her mother, father and many other family members. No known history of type 1 diabetes. Hemoglobin A1c 09/02/2025: 10.4% Nylon Operator consult 11/29/24 and CDE appt 10/03/25. She does not have her glucometer or phone with her today, but she is using the CGM. They report blood sugars are in the 200s and 300s. No blood sugars under 200. Denies hypoglycemia. Current regimen: Jardiance to 25 mg daily. Tresiba 10 units nightly. (received vials but wants pen so this was not started yet) Continue metformin 850 mg daily. Continue Trulicity 0.75 mg daily Hyperlipidemia is treated with Zetia and atorvastatin Hypertension is treated with losartan and metoprolol Diet reviewed it initial visit: Breakfast-coffee with milk and sugar, bread with cheese or ham Lunch- does not eat lunch usually Drinks soda, more coffees during the day Dinner-rice, chicken Drinks 2 glasses of soda daily Smokes 1 pack of cigarettes every 3 days. No alcohol. Hypoglycemia symptoms: Denies episodes Hyperglycemia symptoms: blurry vision Microvascular complications: Nephropathy: Microalbuminuria), neuropathy in her feet Macrovascular complications: CVA 2022, [place] 2022 Patient says she does get some pain in the back of her legs when she is walking, and it resolves after she rests for 15 minutes. US ISHA ordered. ROS: Constitutional: No fevers or chills Respiratory: No shortness of breath Cardiovascular: No chest pain Genitourinary: No dysuria, hematuria, urinary frequency. Neurologic: No headache, dizziness, syncope, endorses burning and tingling in her feet Skin: No rash or wounds Endocrine: No cold or heat intolerance. No polyuria or polydipsia. Physical exam: Constitutional: Alert, in no distress. Neck: Supple, Full range of motion. No lymphadenopathy. No palpable thyroid masses. Respiratory: Clear to auscultation. Cardiovascular: S1 S2 regular. No murmurs. Feet: Warm and well perfused, no edema, intact DP pulses, no rashes, discoloration, wounds or ulcers Psychiatric: Normal mood and affect [facility] Medical History (Updated 09/02/25 @ 12:25 by JOEY Gaspar) Microalbuminuria due to type 2 diabetes mellitus History of CVA (cerebrovascular accident) (~2022) History of myocardial infarction (~2022) Hypertension Hypercholesterolemia Diabetes mellitus Hypothyroid GERD (gastroesophageal reflux disease) Nicotine dependence, cigarettes, uncomplicated Surgical History History of lung biopsy S/P insertion of iliac artery stent History of orthopedic surgery History of cataract surgery History of Family History Father No problems noted. Maternal Grandmother Stomach cancer Paternal Grandmother Lung cancer Social History Housing: House Alcohol intake: never Patient Tobacco Use Status: Current everyday Tobacco user Tobacco use type: Cigarette Cigarette Packs Per Day: 0.5 Cigarettes Per Day: 4 Years Smoked: (onset 18yo, 1/2-3/4ppd x 41yrs, 25PYH) e-Cigarette/Vaping Use: Never Used Second Hand Smoke Exposure: Yes service: No Current occupational status: disabled Cognitive needs: No Hearing needs: No Vision needs: No Physical Exam Vital Signs: Last Vital Signs Pulse 70 09/20/25 14:46 BP 108/46 L 09/20/25 14:46 Pulse Ox 99 09/20/25 14:46 Oxygen Delivery Method Room Air 09/20/25 14:46 BMI result Body Mass Index 28.2 Results Reviewed Results Reviewed: Laboratory Last Values Glucose (Clinic) 239 mg/dL (60-115) H 09/20/25 14:52 Laboratory Tests 01/05/25 03/14/25 07/20/25 08:15 11:07 10:08 Creatinine Estimated GFR Hgb A1c (Clinic) 10.4 H AST 33 H ALT 22 Triglycerides Cholesterol LDL Cholesterol, Calc HDL Cholesterol TSH 1.88 Urine Creatinine 142.87 Urine Microalbumin 172.0 Microalb/Creat Ratio 120.3 H 07/20/25 10:13 Creatinine 0.72 Estimated GFR > 60 Hgb A1c (Clinic) AST ALT Triglycerides 186 H Cholesterol 174 LDL Cholesterol, Calc 100 H HDL Cholesterol 37 L TSH Urine Creatinine Urine Microalbumin Microalb/Creat Ratio Assessment & Plan Assessment & Plan (1) Uncontrolled diabetes mellitus with hyperglycemia: Code(s): E11.65 - Type 2 diabetes mellitus with hyperglycemia Category: Medical Qualifiers: Diabetes mellitus type: type 2 Qualified Code(s): E11.65 - Type 2 diabetes mellitus with hyperglycemia (2) Hypertension: Code(s): I10 - Essential (primary) hypertension Category: Medical Qualifiers: Hypertension type: primary hypertension Qualified Code(s): I10 - Essential (primary) hypertension (3) Hypercholesterolemia: Code(s): E78.00 - Pure hypercholesterolemia, unspecified Category: Medical (4) Microalbuminuria due to type 2 diabetes mellitus: Code(s): E11.29 - Type 2 diabetes mellitus with other diabetic kidney complication; R80.9 - Proteinuria, unspecified Category: Medical Plan In summary this is a 60-year-old female with uncontrolled type 2 diabetes with micro and macrovascular complications. Discussed pathophysiology of Type II Diabetes Mellitus with the patient in detail.? I explained the regional intermodal truck driver risks and complications associated with uncontrolled diabetes including nephropathy, neuropathy, peripheral vascular disease, retinopathy, increased risk of heart disease and stroke.? Discussed lifestyle modification with the patient. Diabetic diet reviewed. She has upcoming appointments with the dietitian and hematology nurse educator. Reviewed treatment of hypoglycemia. They have written instructions. Continue Jardiance to 25 mg daily. Start Tresiba 10 units nightly. Continue metformin 850 mg daily. Increase Trulicity to 1.5 mg weekly.. Continue current medications for hypertension and hyperlipidemia. She will see the dietitian. Follow up in 1 month for re-evaluation of type 2 diabetes. Orders: Orders US ISHA complete Today I73.9 - Peripheral vascular disease, unspecified Medications: New insulin degludec (Tresiba FlexTouch U-100 insulin) 10 units (0.1 mL) subcut DAILY 15 mL 5RF pen needle, diabetic As directed to inject insulin once daily 100 ea 3RF dulaglutide (Trulicity) 1.5 mg (0.5 mL) subcut QWEEK 2 mL 3RF Discontinued dulaglutide (Trulicity) Discontinued Reason: Doctor's Order 0.75 mg (0.5 mL) subcut QWEEK 2 mL 3RF [Pen needles 5mm] Discontinued Reason: Doctor's Order As directed 1 ea 1RF insulin degludec (Tresiba U-100 Insulin) Discontinued Reason: Doctor's Order 10 units (0.1 mL) subcut BEDTIME 10 mL 5RF Patient Instructions: Continue Jardiance to 25 mg daily. Start Tresiba 10 units nightly. Continue metformin 850 mg daily. Increase Trulicity to 1.5 mg weekly. Start this dose one week after the last dose of 0.75 mg Trulicity. Contin?e con Jardiance a 25 mg diarios. Comience con Tresiba 10 unidades por la noche. Contin?e con metformina 850 mg diarios. Aumente Trulicity a 1,5 mg semanales. Comience esta dosis meghna semana despu?s de la ?ltima dosis de Trulicity de 0,75 mg. Coding Level of Care Code Est Pt Level 4 (01608) Complex EM visit Add On G2211 Diagnoses Uncontrolled type 2 diabetes mellitus with hyperglycemia E11.65 Diabetes mellitus type: type 2 Primary hypertension I10 Hypertension type: primary hypertension Hypercholesterolemia E78.00 Microalbuminuria due to type 2 diabetes mellitus E11.29; R80.9
[2025-09-20 14:58] LABS: Glucose, Whole Blood 239 mg/dL (60-115)
== END 2025-09-20 15:27 | disposition home or self-care (01) ==
LOC: HO.ENCR 14:45
PROVIDERS: Visit Provider Physician Assistant Medical
DX: E11.65 Type 2 diabetes mellitus with hyperglycemia (principal); I10 Essential (primary) hypertension; E78.00 Pure hypercholesterolemia, unspecified; E11.29 Type 2 diabetes mellitus with other diabetic kidney complication; R80.9 Proteinuria, unspecified

== ENCOUNTER → 2025-09-20 14:44 | Outpatient (BNVA) | payer OTHER, SELFPAY | PROVIDERS: Visit Provider Physician Assistant Medical | DX: E11.65 Type 2 diabetes mellitus with hyperglycemia (principal); E78.00 Pure hypercholesterolemia, unspecified; E11.29 Type 2 diabetes mellitus with other diabetic kidney complication; R80.9 Proteinuria, unspecified; I10 Essential (primary) hypertension; F17.210 Nicotine dependence, cigarettes, uncomplicated; Z79.84 Long term (current) use of oral hypoglycemic drugs | CPT/HCPCS: 82947; 99212 ==

== ENCOUNTER 2025-09-21 11:19 | Outpatient (AMB) | payer OTHER, SELFPAY ==
[2025-09-21 11:28] VITALS: BP 106/54; PULSE 66; TEMP 36.2; O2SAT 99
--- NOTE | 2025-09-21 11:28 | A.OFFPC_ITS ---
Vital Signs 09/21/25 11:28 Weight 135 lb 2.294 oz BP 106/54 L Blood Pressure Location Lt brachial Position Sitting Pulse 66 Pulse Source Pulse Oximeter Temp 97.1 F Temp Source Oral Pulse Oximetry (%) 99 Oxygen Delivery Method Room Air Intake Visit Reasons: f/u DM Allergies fruit Allergy (Severe, Uncoded 09/21/25 11:36) itchy throat Medication List - Last Reconciled 09/21/25 by Chanda Pozo PA-C acetaminophen (Tylenol Extra Strength) 500 mg PO Q6H PRN aspirin 81 mg PO DAILY atorvastatin 80 mg PO DAILY blood sugar diagnostic (FreeStyle Lite Strips) As directed; TID blood-glucose meter (FreeStyle Lite Meter kit) As directed blood-glucose sensor (FreeStyle Javi 3 Plus Sensor device) Apply 1 new sensor every 15 days as directed to monitor blood glucose continuously. blood-glucose,animal husbandry technician,cont (FreeStyle Javi 3 [place]) Use daily to monitor blood glucose levels continuously. clopidogrel 75 mg PO DAILY dextrose (TRUEplus Glucose) 15 grams (32 mL) PO Q15M PRN dulaglutide (Trulicity) 1.5 mg (0.5 mL) subcut QWEEK empagliflozin (Jardiance) 25 mg PO QAM ezetimibe (Zetia) 10 mg PO DAILY gabapentin 600 mg PO DAILY insulin degludec (Tresiba FlexTouch U-100 insulin) 10 units (0.1 mL) subcut DAILY lancets (FreeStyle Lancets) As directed; TID levothyroxine 25 mcg PO DAILY losartan 25 mg PO DAILY metformin 850 mg PO DAILY metoprolol succinate ER 25 mg PO DAILY pantoprazole 40 mg PO DAILY pen needle, diabetic As directed to inject insulin once daily sertraline 25 mg PO DAILY umeclidinium-vilanterol 62.5-25 mcg/actuation (Anoro Ellipta) 1 inh inhalation DAILY [Wheelchair As directed] Tobacco use date assessed: 06/14/25 Dental Screening Dental Screen Date: 06/14/25 HPI f/u DM HPI Details 60-year-old female with past medical his tory of tobacco abuse, anxiety, depression, GERD, hypothyroid, uncontrolled diabetes mellitus, hypertension, hypercholesterolemia, CVA and [place] last seen 06/2025 coming in for follow up. In review of the notes, patient was seen by endocrinology 09/2025 continued on Jardiance and Trulicity, started on Tresiba nightly and increase in Trulicity follow up in 1 month. Seen by pulmonology 08/2025 continued on Anoro and plan for follow up CT chest. Seen by cardiology 06/2025 discussed management of diabetes, cholesterol and blood pressure, plan for loop recorder and follow up in 6 months. consumer credit counselor Forrest [id number] was used for the duration of this visit. Presenting for follow-up of leg pain and management of diabetes and anxiety. Regarding her diabetes, she has been working with a retail service specialist and was recently started on bedtime insulin. She monitors her blood sugars at home but notes that it is still hard to manage. Her blood sugar readings have not been below 100 mg/dL, with a reading of 246 mg/dL this morning. Current diabetes medications include metformin, Jardiance, and Trulicity; she has not yet started the recently prescribed Tresiba. For management of anxiety, the patient was previously started on sertraline 25 mg but reports it has not been helping. She has been taking it daily without side effects. [facility] Medical History Microalbuminuria due to type 2 diabetes mellitus History of CVA (cerebrovascular accident) (~2022) History of myocardial infarction (~2022) Hypertension Hypercholesterolemia Diabetes mellitus Hypothyroid GERD (gastroesophageal reflux disease) Nicotine dependence, cigarettes, uncomplicated Surgical History History of lung biopsy S/P insertion of iliac artery stent History of orthopedic surgery History of cataract surgery History of Family History Father No problems noted. Maternal Grandmother Stomach cancer Paternal Grandmother Lung cancer Social History Housing: House Alcohol intake: never Patient Tobacco Use Status: Current everyday Tobacco user Tobacco use type: Cigarette Cigarette Packs Per Day: 0.5 Cigarettes Per Day: 4 Years Smoked: (onset 18yo, 1/2-3/4ppd x 41yrs, 25PYH) e-Cigarette/Vaping Use: Never Used Second Hand Smoke Exposure: Yes service: No Current occupational status: disabled Cognitive needs: No Hearing needs: No Vision needs: No Questionnaire Thrive Questionnaire Date Thrive assessed: 03/14/25 I am a: Parent/Caregiver What is your living situation today?: I have a steady place to live Within the past 12 months, did the food you bought not last and you didn't have the money to get more?: I choose not to answer this question Within the past 12 months, did you worry whether your food would run out before you got money to buy more?: I choose not to answer this question Do you have trouble paying for medicines?: I choose not to answer this question Do you have trouble getting transportation to medical appointments?: No Do you have trouble paying your heating and electricity bill?: No Do you have trouble taking care of your child, family member or friend?: No Do you have trouble with day-to-day activities such as bathing, preparing meals, shopping, managing finances, etc.?: No Are you currently unemployed and looking for a job?: No Are you interested in more education?: I choose not to answer this question Please select the resources that you would like help with: None THRIVE Score: 0 AVERY-7 AMB Questionnaire AVERY-7 Date AVERY - 7 assessed: 06/14/25 Source: Developed by Drs. Teo Fagan, Genesis Kinney, Mihir Taylor and colleagues, with an educational lisa from [employer]. Review of Systems Const Denies body aches, Denies chills, Denies fever(s), Denies headache(s) and Denies poor appetite Eyes Reports no additional complaints ENT Denies dizziness and Denies headache(s) Card Denies chest pain, Denies lightheadedness and Denies dyspnea Resp Denies dyspnea GI Denies abdominal pain, Denies nausea and Denies vomiting Reports no additional complaints Musc Reports no additional complaints and Denies abnormal gait Skin/Breast Reports system reviewed and no additional complaints, except as documented Neuro Denies abnormal gait, Denies dizziness and Denies headache(s) Psych Reports no additional complaints Physical exam (Primary Care) Vital Signs: Last Vital Signs Temp 97.1 F 09/21/25 11:28 Pulse 66 09/21/25 11:28 BP 106/54 L 09/21/25 11:28 Pulse Ox 99 09/21/25 11:28 Oxygen Delivery Method Room Air 09/21/25 11:28 Tobacco/Smoking Status: Tobacco use Status Tobacco use date assessed 06/14/25 09/21/25 11:34 Patient Tobacco Use Status Current everyday Tobacco 09/21/25 11:34 Tobacco use type Cigarette 09/21/25 11:34 e-Cigarette/Vaping Use Never Used 09/21/25 11:34 Thrive Assessment: Date of Thrive Assessment Date Thrive assessed 03/14/25 09/21/25 11:34 Const General: cooperative, healthy appearing, comfortable and no acute distress Orientation/consciousness: patient oriented x3 HENMT Head: Yes normocephalic Ears: hearing grossly normal bilaterally General nose exam: Normal external nose present Eyes General: appearance normal, both eyes and all related structures Conjunctivae: conjunctivae normal Neck Neck: Yes full ROM and Yes no lymphadenopathy Resp Effort & Inspection: normal respiratory effort Auscultation: clear to auscultation bilaterally, no crackles, no rales, no rho nchi and no wheezes Cardio Rate: regular rate Rhythm: regular rhythm Skin General skin exam: no rashes or lesions noted Neuro General: patient oriented x3 Gait exam (Neuro): Normal gait present Extrem General: Yes normal to inspection, Yes full ROM and No edema Psych Affect: normal affect Attitude: cooperative Insight: Good insight present (Psych) Judgement: Good judgement present (Psych) Coding Level of Care Code Est Pt Level 3 (38877) Diagnoses Coronary artery disease I25.10 Left upper lobe pulmonary nodule R91.1 History of CVA (cerebrovascular accident) Z86.73 Primary hypertension I10 Hypertension type: primary hypertension Hypercholesterolemia E78.00 Nicotine dependence, cigarettes, uncomplicated F17.210 Uncontrolled type 2 diabetes mellitus with hyperglycemia E11.65 Diabetes mellitus type: type 2 Anxiety F41.9 Assessment & Plan Assessment & Plan (1) Coronary artery disease: Code(s): I25.10 - Atherosclerotic heart disease of [place] coronary artery without angina pectoris Category: Medical Plan: Recently seen by Cardiology echocardiogram was obtained. They recommended continue on dual antiplatelet therapy and managing contributing risk factors. Advised good control of blood pressure, cholesterol and diabetes mellitus. (2) Left upper lobe pulmonary nodule: Comment: 11 mm subpleural nodule in [facility] on 11/2024 LDCT - referral to Pulmonology for further care. Code(s): R91.1 - Solitary pulmonary nodule Category: Medical Plan: Continue to follow with [facility] pul[place]ology. (3) History of CVA (cerebrovascular accident): Onset Date: ~2022 Code(s): Z86.73 - Personal history of transient ischemic attack (TIA), and cerebral infarction without residual deficits Category: Medical Plan: Patient has a history of CVA making her LDL goal less than 70. Advised good control of blood pressure, cholesterol and diabetes. Currently on dual antiplatelet therapy with clopidogrel and aspirin (4) Hypertension: Code(s): I10 - Essential (primary) hypertension Category: Medical Qualifiers: Hypertension type: primary hypertension Qualified Code(s): I10 - Essential (primary) hypertension Plan: Continue on current blood pressure medication. Avoid salt intake and encourage healthy diet and regular exercise. (5) Hypercholesterolemia: Code(s): E78.00 - Pure hypercholesterolemia, unspecified Category: Medical Plan: Avoid foods that are high in cholesterol such as red meat, fried foods, eggs and baked goods. Triglyceride goal of less than 150 and LDL goal of less than 70. Continue on atorvastatin 80 mg and Zetia and plan for labs next month (6) Nicotine dependence, cigarettes, uncomplicated: Comment: (current smoker - onset 18yo, 1/2-3/4ppd x 41yrs, 25PYH) Code(s): F17.210 - Nicotine dependence, cigarettes, uncomplicated Category: Medical Plan: Smoking cigarettes and the use of tobacco can be harmful. We discussed the importance of stopping and options to aid in smoking cessation. Annual lung cancer screening program completed. States she smokes due to anxiety. (7) Uncontrolled diabetes mellitus with hyperglycemia: Code(s): E11.65 - Type 2 diabetes mellitus with hyperglycemia Category: Medical Qualifiers: Diabetes mellitus type: type 2 Qualified Code(s): E11.65 - Type 2 diabetes mellitus with hyperglycemia Plan: Decrease the amount of carbohydrates such as pasta, bread, rice, and potatoes and limit the amount of sweets. Although fruits are generally healthy they should be eaten in moderation as they are still high in sugar. Hemoglobin A1c goal of less than 7%. Continue to follow with endocrinology. (8) Anxiety: Code(s): F41.9 - Anxiety disorder, unspecified Category: Medical Plan: Plan to increase sertraline to 50 mg at this time for better control of anxiety. Plan This note was constructed using voice recognition software. While every effort has been made to ensure accuracy and sew on operator, still areas may have been included sometimes these areas may affect the content or meeting of the given symptoms. Total time spent caring for the patient today was 20 minutes. This includes time spent before the visit reviewing the chart, time spent during the visit, and time spent after the visit and documentation. Patient was informed and verbally consented to the use of an ambient scribe for clinic note documentation during this visit. Medications: New sertraline 50 mg PO DAILY 90 tabs 0RF Discontinued sertraline Discontinued Reason: Patient no longer taking 25 mg PO DAILY 30 tabs 2RF
== END 2025-09-21 12:04 | disposition home or self-care (01) ==
LOC: HO.HMCH 11:19
DX: I25.10 Atherosclerotic heart disease of native coronary artery without angina pectoris (principal); E11.65 Type 2 diabetes mellitus with hyperglycemia; R91.1 Solitary pulmonary nodule; Z86.73 Personal history of transient ischemic attack (TIA), and cerebral infarction without residual deficits; I10 Essential (primary) hypertension; E78.00 Pure hypercholesterolemia, unspecified; F17.210 Nicotine dependence, cigarettes, uncomplicated; F41.9 Anxiety disorder, unspecified

== ENCOUNTER → 2025-09-21 11:19 | Outpatient (BNVA) | payer OTHER, SELFPAY | DX: I25.10 Atherosclerotic heart disease of native coronary artery without angina pectoris (principal); R91.1 Solitary pulmonary nodule; I10 Essential (primary) hypertension; E78.00 Pure hypercholesterolemia, unspecified; E11.65 Type 2 diabetes mellitus with hyperglycemia; F41.9 Anxiety disorder, unspecified; F17.210 Nicotine dependence, cigarettes, uncomplicated; Z86.73 Personal history of transient ischemic attack (TIA), and cerebral infarction without residual deficits | CPT/HCPCS: 99212 ==

== ENCOUNTER 2025-10-03 15:05 | Outpatient (AMB) | payer OTHER, SELFPAY ==
--- NOTE | 2025-10-03 15:23 | MHC.AMDMED ---
Intake Intake Visit Reasons: Type 2 diabetes mellitus with hyperglycemia Telephone Information Clerk Required: Yes Telephone Information Clerk Language: Negative Developer Name: Sanjeev [id number] Accompanied by: Daughter Allergies fruit Allergy (Severe, Uncoded 09/21/25 11:36) itchy throat HPI Comprehensive Diabetes Asmnt Most Recent Diabetes Results: Microalb/Creat Ratio, (<30) 120.3 ug/mg cr H 07/20/25 Cholesterol, (<200) 174 mg/dL 07/20/25 HDL Cholesterol, (>40) 37 mg/dL L 07/20/25 Triglycerides, (<150) 186 mg/dL H 07/20/25 Creatinine, (0.5-1.4) 0.72 mg/dL 07/20/25 BUN, (9-16) 19 mg/dL H 07/20/25 Sodium, (135-145) 141 mmol/L 07/20/25 Potassium, (3.3-5.1) 4.8 mmol/L 07/20/25 Chloride, (96-108) 105 mmol/L 07/20/25 Carbon Dioxide, (22-29) 27 mmol/L 07/20/25 Calcium, (8.4-10.2) 9.2 mg/dL 07/20/25 AST, (5-31) 33 U/L H 01/05/25 ALT, (0-31) 22 U/L 01/05/25 Total Protein, (6.5-8.0) 7.2 g/dL 01/05/25 Albumin, (3.5-5.0) 3.8 g/dL 01/05/25 [facility] Medical History Microalbuminuria due to type 2 diabetes mellitus History of CVA (cerebrovascular accident) (~2022) History of myocardial infarction (~2022) Hypertension Hypercholesterolemia Diabetes mellitus Hypothyroid GERD (gastroesophageal reflux disease) Nicotine dependence, cigarettes, uncomplicated Surgical History History of lung biopsy S/P insertion of iliac artery stent History of orthopedic surgery History of cataract surgery History of Family History Father No problems noted. Maternal Grandmother Stomach cancer Paternal Grandmother Lung cancer Social History Housing: House Alcohol intake: never Patient Tobacco Use Status: Current everyday Tobacco user Tobacco use type: Cigarette Cigarette Packs Per Day: 0.5 Cigarettes Per Day: 4 Years Smoked: (onset 18yo, 1/2-3/4ppd x 41yrs, 25PYH) e-Cigarette/Vaping Use: Never Used Second Hand Smoke Exposure: Yes service: No Current occupational status: disabled Cognitive needs: No Hearing needs: No Vision needs: No Assessment & Plan Assessment & Plan (1) Diabetes mellitus: Comment: (IDDM2) Code(s): E11.9 - Type 2 diabetes mellitus without complications Plan: Diabetes self-management education and support participation record Assessment/scale: 1= needs instructed? 2= needs review? 3= comprehend keep point? 4= demonstrates understanding/ competent? NC= Not Covered Topics Learning Objective: Initial visit Initial or post srvc Initial or post srvc Initial or post srvc Initial or post srvc Initial or post srvc Post srvc Comments Pre Edu-assessment/plan Outcome or reassess Outcome or reassess Outcome or reassess Outcome or reassess Outcome or reassess Outcome or reassess Diabetes pathophysiology 1 Healthy eating 1 Being active 1 Taking medication 1 Monitoring glucose 1 Acute complication 1 Chronic complicated 1 Lifestyle and healthy coping 1 Diabetes distress in support 1 ?Diabetes pathophysiology: ?Defined diabetes med identify own type of diabetes; list 3 options for treating diabetes Healthy eating: ?Described effect of type, amount and ?timing of food on blood glucose; list 3 methods for planning meal Being active: ?State effect of exercise on blood glucose level Taking medication: ?State effect of diabetes medications on diabetes; name diabetes medications taking, action and side effects Monitoring glucose: ?Identify recommended blood glucose targets and personal target Acute complication: ?List symptoms and treatment of hyper and hypoglycemia, DKA, sick day guidelines and guidelines for severe weather or situations of crisis and diabetes supply manage Chronic complication: ?To find the relationship of blood glucose levels to long-term complications of diabetes in screening and preventative measures Lifestyle and healthy coping: ?Described lifestyle and healthy coping strategies to rule out diabetes self-management Diabetes to stress and support: ?Recognize Diabetes to stress and be able to identified support options Learning objectives: The patient was provided with verbal and written education on the following topics as outlined below. The patient met all learning objectives and was able to verbalize understanding and provide teach back of education topics discussed . The patient was provided with the opportunity to ask questions and all questions were answered. Patient Assessment Assess patient education level/literacy/barriers, patient reports she was diagnosed with diabetes approximately 27 years ago let stay well and 09/02/2025 10%. Jardiance to 25 mg daily. Tresiba 10 units nightly. metformin 850 mg daily. Trulicity to 1.5 mg weekly.. Since starting Tresiba 10 units and increase in Trulicity patient's glucose has improved Patient questions/concerns, patient lives with her daughter who does the cooking and food shop At today's visit we contacted patient's pharmacy so she could leaf size picker new prescription for Javi 3+ sensors What is Diabetes? Pathophysiology How the body produces and uses insulin Identify type of DM Risk factors Signs of Diabetes Brief overview of Diabetes Management Monitoring blood sugar Following a meal plan Regular exercise Maintaining a healthy weight Taking medication as needed Members of the care team (PCP, RN, MA, RD, CDE, medical office rep) Blood glucose monitoring When/how often to test Target blood sugar ranges Although clinic code entered into patient's smart phone we were unable to connect with Javi view Patient above target 50% Patient at target 50% Below target 0% GMI for 2 weeks 8% Introduction to Nutrition Importance of healthy diet in managing DM Diet is personalized to individual preference Review patient?s regular diet/food preferences Who prepares meals/does food shopping/ Dining out?/ Barriers? How diet effects glucose Eating 3 balanced meals a day with small, healthy snacks between meals Review food groups Carbohydrates: What is a carbohydrate/Which food/food groups are considered carbohydrates Effect of carbohydrates on blood glucose Portion sizes Reading food labels Basic carb counting (if applicable per nursing assessment) Plate method Meal planning Recommendations: Follow plate method, consistent carbs and read nutritional labels. Smart Goal: Patient will identify foods in current meal plan that contain carbohydrates Educational Materials: The patient was provided with the following written educational materials: Planning Healthy Meals Handout Patient Response to instructions: Comprehension of Instructions: Fair Readiness to make changes: Contemplation How confident they feel about making changes: Positive Portions of this note were created using voice recognition software, please excuse any words or phrases that may have been misinterpreted. Patient Instructions: Incluir actividad diaria regular. ADA recomienda 30 minutos de ejercicio 5 d?as a la semana. P?rdida de peso, hable con el PCP o el cardi?logo antes de comenzar un nuevo plan. Mida el nivel de az?car en la duane seg?n las indicaciones; Ayuno y comida m?s marj de 2hpp. Observe las tendencias en los resultados. Utilice los resultados y eval?e c?mo los alimentos, la actividad f?noel y los medicamentos afectan los resultados de az?car en la duane. Lleve el gluc?metro o CGM a la pr?xima visita. Conocer los medicamentos para la diabetes, toribio acci?n, los efectos secundarios, la eficacia, la toxicidad, la dosis prescrita, el momento y la frecuencia de administraci?n apropiados, el efecto de las dosis olvidadas y retrasadas y las instrucciones de almacenamiento, viaje y seguridad. T?cnicas de resoluci?n de problemas para el seguimiento de episodios de hipo/hiperglucemia y tratamientos. Reducir los comportamientos de reducci?n de riesgos, dejar de fumar, ex?menes regulares de ojos, pies y dentales. Coding Level of Care Code Est Pt Level 1 (44716) Diagnoses Diabetes mellitus E11.9
== END 2025-10-03 16:13 | disposition home or self-care (01) ==
LOC: HO.ENCR 15:06
PROVIDERS: Visit Provider Registered Nurse Diabetes Educator
DX: E11.9 Type 2 diabetes mellitus without complications (principal)

== ENCOUNTER → 2025-10-03 15:05 | Outpatient (BNVA) | payer OTHER, SELFPAY | PROVIDERS: Visit Provider Registered Nurse Diabetes Educator | DX: E11.9 Type 2 diabetes mellitus without complications (principal); Z79.4 Long term (current) use of insulin | CPT/HCPCS: 99211 ==

== ENCOUNTER 2025-10-07 14:12 | Outpatient (REF) | payer OTHER, SELFPAY ==
--- NOTE | 2025-10-07 14:17 | PFT_ITS ---
Indication: Emphysema Spirometry FEV1 to FVC 86%; FEV1 1.89 L; FVC 2.2 L. No significant response to bronchodilators noted. Lung Volumes The patient could not complete the maneuver. Diffusion Capacity DLCO 56% predicted Comparisons None Interpretation No obstructive ventilatory defects. No significant response to bronchodilators noted. Again lung volumes could not be achieved due to the patient is able to do the maneuvers. The patient however appears to have a moderate isolated diffusion impairment. Likely consistent with a history of emphysema although parenchymal lung conditions should also be considered. Clinical correlation warranted. MTDD
[2025-10-07 14:50] VITALS: PULSE 85
== END 2025-10-07 14:13 | disposition home or self-care (01) ==
LOC: HO.RESP 14:12
PROVIDERS: Visit Provider Internal Medicine Pulmonary Disease
DX: J43.9 Emphysema, unspecified (principal); F17.200 Nicotine dependence, unspecified, uncomplicated
CPT/HCPCS: 94060; 94640; 94727; 94729

== ENCOUNTER → 2025-10-07 14:17 | Outpatient (BNV) | payer OTHER, SELFPAY | PROVIDERS: Visit Provider Hospitalist | DX: J43.9 Emphysema, unspecified (principal) | CPT/HCPCS: 94060; 94729 ==

== ENCOUNTER → 2025-10-09 14:34 | Outpatient (BNV) | payer OTHER, SELFPAY | PROVIDERS: Visit Provider Internal Medicine | DX: I25.10 Atherosclerotic heart disease of native coronary artery without angina pectoris (principal); Z95.818 Presence of other cardiac implants and grafts | CPT/HCPCS: 93298 ==

== ENCOUNTER 2025-10-14 10:44 | Outpatient (AMB) | payer OTHER, SELFPAY ==
[2025-10-14 10:56] VITALS: BP 102/57; PULSE 95; O2SAT 98; BMI 27.2
--- NOTE | 2025-10-14 10:56 | A.OFFVIS_ITS ---
Vital Signs 10/14/25 10:56 Height 4 ft 10 in Weight 130 lb BMI 27.2 BP 102/57 L Blood Pressure Location Lt brachial Position Sitting Pulse 95 Pulse Source Pulse Oximeter Pulse Oximetry (%) 98 Oxygen Delivery Method Room Air Intake Visit Reasons: Pulmonary Nodule Cattle Alley Worker Required: Yes Cattle Alley Worker Name: Caro Pena Deshawn Information Interpreted: non-clinical & clinical Allergies fruit Allergy (Severe, Uncoded 09/21/25 11:36) itchy throat HPI HPI Pulmonary Nodule: Details: 60-year-old lady, active 30+ pack-year smoker referred from lung cancer screening program for new finding of 11 mm left upper lobe nodule. Patient does have multiple grandparents with history of lung cancer. After the last office visit she had negative biopsy. She had completed follow-up CT scan that shows stable pulmonary nodule. Her pulmonary function test shows decreased diffusion capacity without fixed obstruction. She has been using Anoro with reasonable control of her symptoms. She denies recent exacerbations. [facility] Medical History Microalbuminuria due to type 2 diabetes mellitus History of CVA (cerebrovascular accident) (~2022) History of myocardial infarction (~2022) Hypertension Hypercholesterolemia Diabetes mellitus Hypothyroid GERD (gastroesophageal reflux disease) Nicotine dependence, cigarettes, uncomplicated Surgical History History of lung biopsy S/P insertion of iliac artery stent History of orthopedic surgery History of cataract surgery History of Family History Father No problems noted. Maternal Grandmother Stomach cancer Paternal Grandmother Lung cancer Social History Housing: House Alcohol intake: never Patient Tobacco Use Status: Current everyday Tobacco user Tobacco use type: Cigarette Cigarette Packs Per Day: 0.5 Cigarettes Per Day: 4 Years Smoked: (onset 18yo, 1/2-3/4ppd x 41yrs, 25PYH) e-Cigarette/Vaping Use: Never Used Second Hand Smoke Exposure: Yes service: No Current occupational status: disabled Cognitive needs: No Hearing needs: No Vision needs: No Review of Systems Const Denies daytime sleepiness, Denies excessive sweating, Denies fatigue, Denies fever(s), Denies lethargy, Denies malaise, Denies night sweats, Denies snoring and Denies weight loss Eyes Denies blurry vision and Denies itchy eyes ENT Denies nasal congestion, Denies post nasal drip, Denies sinus pain, Denies sinus pressure and Denies other ( Thrush) Card Denies chest pain, Denies pedal edema, Denies dyspnea, Denies orthopnea and Denies paroxysmal nocturnal dyspnea Resp Denies cough, Denies hemoptysis, Denies excessive phlegm production, Denies dyspnea, Denies snoring and Denies wheezing GI Denies abdominal pain and Denies heartburn Musc Denies myalgias, Denies arthralgias and Denies joint swelling Skin/Breast Denies rash Neuro Denies memory loss and Denies seizure-like activity Psych Denies abnormal sleep pattern, Denies anxiety and Denies memory loss Endo Denies excessive sweating, Denies fatigue and Denies heat intolerance Nathan/Lymph Denies easy bruising Aller/Immun Denies itchy eyes, Denies seasonal rhinorrhea and Denies wheezing Physical Exam Vital Signs: Last Vital Signs Pulse 95 10/14/25 10:56 BP 102/57 L 10/14/25 10:56 Pulse Ox 98 10/14/25 10:56 Oxygen Delivery Method Room Air 10/14/25 10:56 BMI result Body Mass Index 27.2 Const General: no acute distress and alert Nutritional Appearance: not obese Orientation/consciousness: Other orientation findings ( oriented) HEENT Head: Yes atraumatic Eyes General: appearance normal, both eyes and all related structures Sclerae: sclerae normal EOM: EOMs intact bilaterally Neck Neck: Yes supple Lymphatic: no lymphadenopathy noted Resp Effort & Inspection: normal respiratory effort and no use of accessory muscles Auscultation: clear to auscultation bilaterally Cardio Rate: regular rate Rhythm: regular rhythm Heart sounds: no gallops, no murmurs and no rubs Skin General skin exam: other ( warm) Extrem General: No clubbing, No cyanosis and No edema Assessment & Plan Assessment & Plan (1) Pulmonary emphysema: Code(s): J43.9 - Emphysema, unspecified Category: Medical Plan: Well controlled on Anoro and albuterol MDI. Continue current regimen. (2) Left upper lobe pulmonary nodule: Code(s): R91.1 - Solitary pulmonary nodule Category: Medical Plan: Status post negative biopsy and follow-up CT chest with stable findings. Will repeat CT chest in 12 months. Coding Level of Care Code Est Pt Level 4 (42596) Diagnoses Pulmonary emphysema J43.9 Left upper lobe pulmonary nodule R91.1
== END 2025-10-14 11:20 | disposition home or self-care (01) ==
LOC: HO.HPS 10:45
PROVIDERS: Visit Provider Internal Medicine Pulmonary Disease
DX: J43.9 Emphysema, unspecified (principal); R91.1 Solitary pulmonary nodule
CPT/HCPCS: 99214

== ENCOUNTER → 2025-10-14 10:44 | Outpatient (BNVA) | payer OTHER, SELFPAY | PROVIDERS: Visit Provider Internal Medicine Pulmonary Disease | DX: R91.1 Solitary pulmonary nodule (principal); J43.9 Emphysema, unspecified; F17.210 Nicotine dependence, cigarettes, uncomplicated; Z79.899 Other long term (current) drug therapy | CPT/HCPCS: 99212 ==